=== PATIENT | female | born 1945 | race Caucasian/White ===

== ENCOUNTER 2024-04-07 17:25 | Inpatient (IN) ==
--- OUTSIDE RECORDS SUMMARY | 2024-04-07 17:30 | External Medical Summary | Summary of Care ---
Author Name Unknown Organization [facility] Address [address] [facility] [place] [address] Phone [phone] Care Team Providers Care Spool Hauler Name Role Phone Jordan Batista MD Primary Care Provider + Reason for Referral * Evaluate & Treat - Unlimited Visits (Within 10 days (routine)) - Authorized Specialty Diagnoses / Procedures Referred By Contdeacon t Referred To Contact Hematology/Oncology / Hematology Oncology Diagnoses Thrombocytopenia (HCC) Neutropenia, unspecified type (HCC) Jordan Batista MD [address] [place] [address] Referral ID Status Reason Start Date Expiration Date Visits Requested Visits Authorized [id number] Authorized Specialty Services Required 4 [phone] Question Answer Referral Priority Within 10 days (routine) Where should this appointment be scheduled? [facility] Reason for Referral Abnormal CBC Comments Hx chronic low WBC & platelet--both lower than her typical. Please eval/tx Reason for Visit * Reason Onset Date Comments Test Results 12/07/2023 Encounter Details Date Type Department Care Team (Late st Contact Info) Description 12/07/2023 Telephone Family Practice [facility] [address] [place] [address] Jordan Batista MD [address] [place] [address] Test Results Allergies Active Allergy Reactions Criticality Noted Date Comments Egg White High 10/27/1997 anaphylaxis from oral intake Egg-Derived Products 06/16/2011 Allergic to egg white, throat swelling Influenza Virus Vaccine Other (Please comment) 06/16/2011 Allergic to egg white, throat swelling Losartan Cough 11/03/2020 Cough/wheeze Dextromethorphan-Guaife nesin Other (Please comment) 03/18/2022 Pt has rash and knocked her out and stomach pains Pravachol 10/26/2007 Achiness Pneumococcal 13-Margarita Conj Vacc Chills/rigors,Fever, Nausea/vomiting,Othe r (Please comment) 06/03/2016 Very lighted headed and felt like she was going to pass out documented as of this encounter (statuses as of 12/11/2023) Medications Medication Sig Dispensed Refills Start Date End Date Status MULTIVITAMINS PO TABS 1 TABLET DAILY 05/24/2012 Active vitamin c (ASCORBIC ACID) 500 MG Tablet Take 2 Tablets by mouth in the morning. Active Simvastatin 20 MG Oral Tablet (Zocor)Indications:D yslipidemia, goal LDL below 100,Transient cerebral ischemia, unspecified type TAKE 1 TABLET EVERY EVENING 90 Tablet 3 06/23/2023 Active Triamcinolone Acetonide 0.1 % External Cream (Aristocort) APPLY TO RIGHT LEG TWICE DAILY NEEDED FOR FLARES 80 g 11 10/29/2023 Active Aspirin 81 MG Oral Tablet Delayed Release (Aspirin 81) Take 1 Tablet by mouth in the morning. Active Levothyroxine Sodium 88 MCG Oral Tablet (Levoxyl) Take 1 Tablet by mouth in the morning. (at least 30 min prior to breakfast or other meds). 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 06/05 US liver ?cirrohsis. Referred. 11/05 EGD +reflux, erosions, nodule found in the esophagus. Biopsied. --starting PPI - Portal hypertensive gastropathy. No evidence of gastric varices. - Duodenal erosions 07/05 TTE normal EF gr I DD. 07/03 colon WNL. Consider ck 5y? 06/03 DEXA ok. 2017 left breast bx papillomas (had bloody discharge)--had removed. 08/29 mult polyps PATH 2 tubular adenomas--brittany 3y Dyslipidemia, goal LDL below 100 01/15/2015 Hx-TIA (transient ischemic attack) 07/13/2012 Stasis dermatitis 03/07/2012 Rosacea 03/07/2012 GENERAL OSTEOARTHROSIS 10/26/2001 Hypothyroidism 11/27/1997 Former smoker 11/27/1997 Overview: Quit 2006 documented as of this encounter (statuses as of 12/11/2023) Resolved Problems Problem Noted Date Diagnosed Date Resolved Date Viral URI 10/22/2020 05/23/2022 Bloody discharge from left nipple 09/15/2017 04/26/2018 Dyslipidemia, goal to be determined 01/22/2009 10/23/2009 Overview: Per Lipid Taxonomy. Allergic rhinitis 06/22/2000 01/16/2018 MENOPAUSE - MATT - 1977 11/27/199705/25 Mixed dyslipidemia 11/27/1997 9 Overview: Per Lipid Taxonomy. documented as of this encounter (statuses as of 12/11/2023) Immunizations Name Administration Dates Next Due Hepatitis B, 20+ yrs 02/22/2023,08/25/2022,07/15 Pneumococcal Conjugate Vacc, 13 Valent (Prevnar) 03/18/2016 TD, Preservative Free 10/23/2009 documented as of this encounter Social History Tobacco Use Types Packs/Day Years Used Date Smoking Tobacco: Former Cigarettes 0.5 15 0 08/14/1991 - 08/13/2006 Smokeless Tobacco: Never Alcohol Use Standard Drinks/Week Comments No 0 (1 standard drink = 0.6 oz pur e alcohol) PHQ-2 Answer Date Recorded PHQ Adult Total Score 0 11/06/2023 Hunger Vital Sign Answer Date Recorded Within the past 12 months, y ou worried that your food would run out before you got the money to buy more. Never true 11/02/19 23 Within the past 12 months, t he food you bought just didn't last and you didn't have money to get more. Never true 11/01/2022 Childcare Answer Date Recorded Do you feel overwhelmed with taking care of a child, family member or friend? No 11/01/2022 Does your family need help f inding childcare? (Household - for ages 0-17 years) Not on file 11/01/2022 Clothing Answer Date Recorded Have you been unable to get clothing when it was really needed? No 11/01/2022 Is your family able to get c lothes or diapers when needed? (Household - for ages 0-17 years) Not on file 11/01/2022 Personal Safety Answer Date Recorded Do you feel unsafe or have concerns for your saf ety? No 11/01/2022 Do you have concerns for you r family's safety? (Household - for ages 0-17 years) Not on file 11/01/2022 Utilities Answer Date Recorded Do you have trouble paying y our heating, water, or electric bill? (Adult - for ages 18 years and over) Not on file 11/02/2023 Is your family able to pay t he heat, water, or electric bill? (Household - for ages 0-17 years) Not on file 11/02/2023 Does your family have access to good internet? (Household - for ages 0-17 years) Not on file 11/02/2023 Employment Status Answer Date Recorded Are you unemployed or without regular income? No 11/01/2022 Does the household have a re gular source of income? (Household - for ages 0-17 years) Not on file 11/01/2022 Social Connections Answer Date Recorded How often do you feel lonely or isolated from those around you? (Adult - for ages 18 years and over) Not on file 11/02/2023 Financial Resource Strain Answer Date R ecorded Do you have any trouble payi ng for your medications, or do you think you might in the future? No 11/01/2022 Does your family have troubl e paying for medicine? (Household - for ages 0-17 years) Not on file 11/01/2022 Transportation Needs Answer Date Record ed READ ONLY Do you have troubl e getting a ride to medical visits or work? Never True 11/01/2022 Does your family have a hard time getting a ride to doctors visits? (Household - for ages 0-17 years) Not on file 11/01/2022 Has lack of transportation k ept you from medical appointments, meetings, work, or from getting things needed for daily living? Check all that apply. (Adult - for ages 18 years and over) Not on file 11/01/2022 Do you (or your family) have trouble finding or paying for a ride (transportation)? (Household - for ages 0-17 years) Not on file 11/01/2022 Housing Stability Answer Date Recorded Do you currently live in a s helter or have no steady place to sleep at night? No 11/01/2022 READ ONLY Do you think you a re at risk of becoming homeless? No 11/01/2022 Does your family worry about paying for your home or becoming homeless? (Household - for ages 0-17 years) Not on file 0 11/01/2022 Are you homeless or worried that you might be in the future? (Adult - for ages 18 years and over) Not on file Are you (or your family) lelia eless or worried that you might be in the future? (Household - for ages 0-17 years) Not on file Food Insecurity Answer Date Recorded Do you need food for this week? No 11/01/2022 Are you able to get enough f ood for your family? (Household - for ages 0-17 years) Not on file 11/01/2022 Does your family need food t his week? (Household - for ages 0-17 years) Not on file 11/01/2022 Do you always have enough fo od for your family? (Household - for ages 0-17 years) Not on file 11/01/2022 Sex and Gender Information Value Date Recorded Sex Assigned at Female 03/17/2022 3:09 PM EST Gender Identity Female 03/17/2022 3:09 PM EST Sexual Orientation Straight 03/17/2022 3: 09 PM EST Job Start Date Occupation Industry Not on file Not on file Not on file documented as of this encounter Miscellaneous Notes * Telephone Encounter - Rajwinder Crow OSA - 12/11/2023 11:19 AM EDT Patient has been notified of the message. Patient has been scheduled. * Telephone Encounter - Myrna Leonardo OSA - 12/11/2023 10:59 AM EDT Reason for patient's call: Pt is calling returning miss called Caller was transferred to [facility] at the nurse line. * Telephone Encounter - Jerilyn Bo LPN - 12/11/2023 10:47 AM EDT No Benign Heme triage this week due to provider being out of office. Scheduling: Please schedule with next available Sumit QUIÑONES Hematology, "Thrombocytopenia, Neutropenia" within the next 10-Days. Thank you!! * Telephone Encounter - Bijal Paredes LPN - 12/08/2023 11:55 AM EDT My [employer] message sent. * Addendum Note - Jordan Batista MD - 12/08/2023 11:12 AM EDTAddended by: JORDAN BATISTA on: 12/08/2023 11:12 AM Modules accepted: Orders * Telephone Encounter - Jordan Batista MD - 12/08/2023 11:12 AM EDT Platelet lab ordered--please do before heme appt * Telephone Encounter - Bijal Paredes LPN - 12/08/2023 10:59 AM EDT My [employer] message sent to patient. Called the lab and spoke to Khadijah. Test code anti-platelet antibody is Lab 2857 * Telephone Encounter - Ganesh Ragsdale RN - 12/08/2023 9:01 AM EDT Eliazar- please triage. Thanks. * Telephone Encounter - Rosalind Youngblood OSA - 12/08/2023 6:47 AM EDT Hem/onc will call her to schedule * Telephone Encounter - Jordan Batista MD - 12/07/2023 10:38 PM EDT Call pt. Thyroid labs are improved--continue current dose. Her WBC & platelet are both lower than her usual low values. I'd like her to see our blood specialist to see if further tests or treatments are needed. Referral signed. Please also call lab--how do I order an Anti-platelet antibody? Cc: Dr Rodriguez documented in this encounter Plan of Treatment Upcoming Encounters Date Type Department Care Team (Late st Contact Info) Description 12/11/2023 1:00 PM EDT Laboratory Laboratory, [facility] [address] [place] [phone] LacyMaryjane peaces [address] [facility] [place] [address] 12/19/2023 4:00 PM EST Office Visit Hematology/Oncology [facility] [address] [place] [phone] Beth King MD [address] [place], [place] [address] 05/13/2024 8:20 AM EDT Office Visit Hepatology, [facility] [address] [place] [address] Nithya Rodriguez DO [address] [place] [address] 05/23/2024 9:00 AM EDT Imaging Radiology [address] [facility] [place] [address] 05/29/2024 8:20 AM EDT Office Visit Family Practice [facility] [address] [facility] [place] [address] Jordan Batista MD 132 [facility] [place] [address] 11/11/2024 8:00 AM EDT Nurse Only Ancillary [facility] [address] [facility] [place] [address] [facility], Nurse Annual Wellness [facility] 132 [facility] [place] [address] Scheduled Orders Name Type Priority Associated Diagnoses Orde r Schedule PLATELET ANTIBODY, DIRECT Lab Routine Thrombocytopenia (HCC) Expected: 12/08/2023, Expires: 12/07/2024 Scheduled Procedures Name Priority Associated Diagnoses Date/Ti me ESOPHAGOGASTRODUODENOSCOPY ( EGD), FLEXIBLE, TRANSORAL, DIAGNOSTIC Recall Portal hypertensive gastropathy (HCC) Scheduled Referrals Name Type Priority Associated Diagnoses Orde r Schedule HEMATOLOGY/ONCOLOGY REFERRAL OP Referral Within 10 days (routine) Thrombocytopenia (HCC) Neutropenia, unspecified type (HCC) Ordered: 12/07/2023 Health Maintenance Due Date Last Done Comments DTap/Tdap Vaccines (1 - Tdap) 10/24/2009 10/23/2009 Mammogram 06/19/2024 06/20/2023, 05/0 02/2023, 06/07/2022, Additional history exists Adult Wellness Visit 11/05/2024 11/06/2023, 11/02/19 23 Depression Screening 11/05/2024 11/06/2023 GFR 12/04/2024 12/05/2023, 10/14, 01/09/2023, Additional history exists TSH 12/04/2024 12/05/2023, 10/14, 05/25/2023, Additional history exists Albumin/Creatinine Ratio 05/23/2025 05/23/2022 DXA Scan 06/08/2025 06/08/2020, 08/14, 09/07/2011, Additional history exists Colonoscopy 07/07/2025 07/07/2020, 06/14, 09/07/2016, Additional history exists RETIRED - COLONOSCOPY-EVERY 5 YRS AGES 18-100 Discontinued 07/07/2020, 07/07/2020, 09/07/2016, Additional history exists Hepatitis B Vaccine Completed 02/22/2023, 08/25/2022, 07/15/2022 COVID-19 Vaccine Discontinued HPV (Gardasil) Vaccine Aged Out No lo nger eligible based on patient's age to complete this topic MENINGOCOCCAL (MENACTRA/MENVEO) Aged Out No longer eligible based on patient's age to complete this topic Zoster Vaccines Discontinued documented as of this encounter Medical Devices Not on filedocumented as of this encounter Visit Diagnoses Diagnosis Thrombocytopenia (HCC)- Primary Thrombocytopenia, unspecified Neutropenia, unspecified type (HCC) documented in this encounter Care Teams Spool Hauler Relationship Specialty Start Date End Date Jordan Batista MD [address] [place] [address] PCP - General Family Medicine 03/18/16 documented as of this encounter
--- OUTSIDE RECORDS SUMMARY | 2024-04-07 17:30 | External Medical Summary | Summary of Care ---
Author Name Unknown Organization [facility] Address [address] [facility] [place] [address] Phone [phone] Care Team Providers Care Fisher Hoop Net Name Role Phone Jordan Sierra MD Primary Care Provider + Reason for Visit * Reason Comments Outpatient Testing Encounter Details Date Type Department Care Team (Late st Contact Info) Description 12/11/2023 1:00 PM EDT Laboratory Laboratory, [facility] [address] [facility] [place] [phone] [facility] [address] [facility] [address] Thrombocytopenia (HCC) Allergies Active Allergy Reactions Criticality Noted Date [...] Hypothyroidism 11/27/1997 Former smoker 11/27/1997 Overview: Quit 2007 documented as of this encounter (statuses as [...] No 11/01/2022 Does the household have a rustlar source of income? (Household - for ages [...] on file documented as of this encounter Plan of Treatment Upcoming Encounters Date Type Department Care Team (Late st Contact Info) Description 12/19/2023 4:00 PM EST Office Visit Hematology/Oncology [facility] [address] [place] [address] [phone] Beth King MD [address] [place] [address] [address] 05/13/2024 8:20 AM EDT Office Visit Hepatology, [facility] [address] [place] [address] Nithya Rodriguez DO [address] [place] [address] 05/23/2024 9:00 AM EDT Imaging Radiology [address] [place] [address] 05/29/2024 8:20 AM EDT Office Visit Family Practice [facility] [address] [place] [address] Jordan Sierra MD [address] [place] [address] 11/11/2024 8:00 AM EDT Nurse Only Ancillary [facility] [address] [facility] [place] [address] [facility], Nurse Annual Wellness [facility] [address] [place] [address] Pending Results Name Type Priority Associated Diagnoses Date /Time PLATELET ANTIBODY, DIRECT Lab Routine Thrombocytopenia (HCC) 12/11/2023 1:07 PM EDT Scheduled Procedures Name Priority Associated Diagnoses Date/Ti me ESOPHAGOGASTRODUODENOSCOPY ( EGD), FLEXIBLE, TRANSORAL, DIAGNOSTIC Recall Portal hypertensive gastropathy (HCC) Health Maintenance Due Date Last Done Comments [...] of this encounter Visit Diagnoses Diagnosis Thrombocytopenia (HCC) Thrombocytopenia, unspecified documented in this encounter Care Teams Fisher Hoop Net Relationship Specialty Start Date End Date Jordan Sierra MD 132 [facility] [place] [address] PCP - General Family Medicine 03/18/16 documented as of this encounter
--- OUTSIDE RECORDS SUMMARY | 2024-04-07 17:30 | External Medical Summary | Summary of Care ---
Author Name Unknown Organization [facility] Address [address] [facility] [place] [address] Phone [phone] Care Team Providers Care Stage Setting Painter Apprentice Name Role Phone Unavailable Primary Care Provider Unavailabl e Reason for Visit * Reason Onset Date Comments Medication Refill 04/02/2024 Status Check 04/02/2024 Encounter Details Date Type Department Care Team (Late st Contact Info) Description 04/02/2024 Refill Family [facility] [address] [place] [address] Jordan Sierra MD [address] [place] [address] Allergies Active Allergy Reactions Criticality Noted Date [...] as of this encounter (statuses as of 04/03/2024) Medications MULTIVITAMINS PO TABS 1 TABLET DAILY 3 Active vitamin c (ASCORBIC ACID) 500 MG Tablet Take 2 Tablets by mouth in the morning. Active Simvastatin 20 MG Oral Tablet (Zocor)Indicatio ns:Dyslipidemia, goal LDL below 100,Transient cerebral ischemia, unspecified type TAKE 1 TABLET EVERY EVENING 90 Tablet 3 4 Active Additional Information Patient not taking.Reported on 12/19/2023 Triamcinolone Acetonide 0.1 % External Cream (Aristocort) APPLY TO RIGHT LEG TWICE DAILY NEEDED FOR FLARES 80 g 11 4 Active Aspirin 81 MG Oral Tablet Delayed Release (Aspirin 81) Take 1 Tablet by mouth in the morning. Active B-12 500 MCG Oral Tablet Take by mouth. Act cedrick Levothyroxine Sodium 88 MCG Oral Tablet (Levoxyl) Take 1 Tablet by mouth in the morning. (at least 30 min prior to breakfast or other meds). 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 06/05 US liver ?cirrohsis. Referred. 11/05 EGD +reflux, erosions, nodule found in the esophagus. Biopsied. --starting PPI - Portal hypertensive gastropathy. No evidence of gastric varices. - Duodenal erosions 07/05 TTE normal EF gr I DD. 07/03 colon WNL. Consider ck 5y? 06/03 DEXA ok. 2018 left breast bx papillomas (had bloody discharge)--had removed. 08/29 mult polyps PATH 2 tubular adenomas--brittany 3y Dyslipidemia, goal LDL below 100 01/15/2015 Hx-TIA (transient ischemic attack) 07/13/2012 Stasis dermatitis 03/07/2012 Rosacea 03/07/2012 GENERAL OSTEOARTHROSIS 10/26/2001 Hypothyroidism 11/27/1997 Former smoker 11/27/1997 Overview (03/18/2016): Quit 2006 documented as of this encounter (statuses as of 04/03/2024) Resolved Problems Problem Noted Date Diagnosed Date Resolved Date Viral URI 10/22/2020 05/23/2022 Bloody discharge from left nipple 09/15/2017 04/26/2018 Dyslipidemia, goal to be determined 01/22/2009 10/23/2009 Overview (01/22/2009): Per Lipid Taxonomy. Allergic rhinitis 06/22/2000 01/16/2018 MENOPAUSE - MATT - 1977 11/27/199705/25 Mixed dyslipidemia 11/27/1997 9 Overview (01/22/2009): Per Lipid Taxonomy. documented as of this encounter (statuses as of 04/03/2024) Immunizations Name Administration Dates Next Due Hepatitis [...] y our heating, water, or electric bill? No 11/01/2022 Is your family able to pay t he heat, water, or electric bill? (Household - for ages 0-17 years) Not on file 11/01/2022 Does your family have access to good internet? (Household - for ages 0-17 years) Not on file 11/01/2022 Employment Status Answer Date Recorded Are you unemployed or without regular income? No 11/01/2022 Does the household have a re lar source of income? (Household - for ages 0-17 years) Not on file 11/01/2022 Social Connections Answer Date Recorded How often do you feel lonely or isolated from th ose around you? 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 Informed pt that RX is available at their pharmacy. Pt verbalized understanding and stated they will check with their pharmacy regarding this medication. Thank you, Adenike Steele CPhT [employer] Engineer III [facility] [address] [place] [address], [address] [address] * Telephone Encounter - Elia Reyes RPh - 04/03/2024 12:46 PM EST Duplicate request cancelled, new RX sent 04/02/24. Thanks, Elia Reyes Rph, Pharm D. Clinical Pharmacist [facility] [phone] 04/03/2024,12:47 PM documented in this encounter Plan of Treatment Upcoming Encounters Date Type Department Care Team (Late st Contact Info) Description 05/13/2024 8:20 AM EDT Office Visit Hepatology, [facility] [address] [place] [address] Nithya Rodriguez DO [address] [place] [address] 05/23/2024 9:00 AM EDT Imaging Radiology [facility] [address] [facility] [place] [address] [place] [address] [phone] 05/29/2024 8:20 AM EDT Office Visit Family Practice [facility] [address] [place] [address] Jordan Sierra MD [address] [place] [address] [address] 06/18/2024 9:00 AM EDT Laboratory Laboratory, [facility] [address] [place] [phone] Maryjane Lacy [facility] 132 [facility] [place] [address] 06/25/2024 1:00 PM EDT Office Visit Hematology/Oncology [facility] 200 [facility] [place] [phone] Beth King MD [address] [place] [address] 11/11/2024 8:00 AM EDT Nurse Only Ancillary [facility] 132 [facility] [place] [address] [place], Nurse Annual Wellness [facility] 132 [facility] [place] [address] Scheduled Procedures Name Priority Associated Diagnoses Date/Ti me ESOPHAGOGASTRODUODENOSCOPY ( EGD), FLEXIBLE, TRANSORAL, DIAGNOSTIC Recall Portal hypertensive gastropathy (HCC) Health Maintenance Due Date Last Done Comments DTap/Tdap Vaccines (1 - Tdap) 10/24/2009 10/23/2009 Mammogram 06/19/2024 06/20/2023, 02/2023, 06/07/2022, Additional history exists Depression Screening 11/05/2024 11/06/2023 GFR 12/04/2024 12/05/2023, [...] on patient's age to complete this topic Meningitis B Vaccine (Bexsero/Trumemba) Aged Out No longer eligible based on patient's age to complete this topic Zoster Vaccines Discontinued documented as of this encounter Medical Devices Not on filedocumented as of this encounter
--- OUTSIDE RECORDS SUMMARY | 2024-04-07 17:30 | External Medical Summary | Summary of Care ---
Author Name Unknown Organization [facility] [address] [facility] [address] [address] Phone [phone] Care Team Providers Care Geological Sample Tester Name Role Phone Jordan Sierra MD Primary Care Provider + Reason for Visit * Reason Onset Date Comments Test Results 11/06/2023 Encounter Details Date Type Department Care Team (Late st Contact Info) Description 11/06/2023 Telephone Family Practice [facility] [address] [employer] [address] [address] [place] [phone] Jordan Sierra MD [address] [address] [place] [id number] Test Results Allergies Active Allergy Reactions Criticality [...] as of this encounter (statuses as of 02/05/2024) Medications MULTIVITAMINS PO TABS 1 TABLET DAILY 05/25/19 13 Active vitamin c (ASCORBIC ACID) 500 MG Tablet Take 2 Tablets by mouth in the morning. Active Simvastatin 20 MG Oral Tablet (Zocor)Indicat ions:Dyslipide carlitos, goal LDL below 100,Transient cerebral ischemia, unspecified type TAKE 1 TABLET EVERY EVENING 90 Tablet 3 06/23/19 24 Active Additional Information Patient not taking.Reported on 12/19/2023 Triamcinolone Acetonide 0.1 % External Cream (Aristocort) APPLY TO RIGHT LEG TWICE DAILY NEEDED FOR FLARES 80 g 11 10/29/19 24 Active Aspirin 81 MG Oral Tablet Delayed Release (Aspirin 81) Take 1 Tablet by mouth in the morning. Active Levothyroxine Sodium 100 MCG Oral Tablet (Levoxyl)Indic ations:Hypothy roidism, unspecified type Take 1 Tablet by mouth in the morning. (at least 30 min prior to breakfast or other meds). 90 Tablet 1 06/18/19 24 024 Discontinued(M edication/Dose Changed) Levothyroxine Sodium 88 MCG Oral Tablet (Levoxyl) Take 1 Tablet by mouth in the morning. (at least 30 min prior to breakfast or other meds). 30 Tablet 1 11/06/19 24 024 Discontinued documented as of this encounter (statuses as of 02/05/2024) Active Problems Problem Noted Date Diagnosed Date [...] as of this encounter (statuses as of 02/05/2024) Resolved Problems Problem Noted Date Diagnosed Date Resolved Date Viral URI 10/22/2020 05/23/2022 Bloody discharge from left nipple 09/15/2017 04/26/2018 Dyslipidemia, goal to be determined 01/22/2009 10/23/2009 Overview (01/22/2009): Per Lipid Taxonomy. Allergic rhinitis 06/22/2000 01/16/2018 MENOPAUSE - MATT - 1977 11/27/199705/25 Mixed dyslipidemia 11/27/1997 9 Overview (01/22/2009): Per Lipid Taxonomy. documented as of this encounter (statuses as of 02/05/2024) Immunizations Name Administration Dates Next Due Hepatitis [...] encounter Miscellaneous Notes * Telephone Encounter - Mariaelena Nix LPN - 11/07/2023 8:55 AM EDT Pt VM box full and unable to leave message Pt aware via VM [employer] * Telephone Encounter - Jordan Sierra MD - 11/06/2023 10:19 PM EDT Call pt. Thyroid remains higher than normal (low TSH) We can decrease her Synthroid to 88mcg. Stop the 100mcg dose. I sent 88mcg to [facility]--[facility] in 6 weeks. If stable, can switch to Mail order documented in this encounter Plan of Treatment Upcoming Encounters Date Type Department Care Team (Late st Contact Info) Description 05/13/2024 8:20 AM EDT Office Visit Hepatology, [facility] [address] [address] Nithya Rodriguez DO [address] [place] [address] 05/23/2024 9:00 AM EDT Imaging Radiology [facility] [address] [address] 05/29/2024 8:20 AM EDT Office Visit Family Practice [facility] [address] [address] Jordan Sierra MD [address] [place] [address] 06/18/2024 9:00 AM EDT Laboratory Laboratory, [facility] [address] [phone] [facility] Lacy [facility] [place] [address] 06/25/2024 1:00 PM EDT Office Visit Hematology/Oncology [facility] [place] [address] [facility] [place] [phone] Beth King MD [address] [facility] [place] [address] 11/11/2024 8:00 AM EDT Nurse Only Ancillary [facility] 132 [facility] [place] [address] Regino, Nurse Annual Wellness [facility] [address] [facility] [place] [address] Scheduled Procedures Name Priority Associated Diagnoses Date/Ti me ESOPHAGOGASTRODUODENOSCOPY ( EGD), FLEXIBLE, TRANSORAL, DIAGNOSTIC Recall Portal hypertensive gastropathy (HCC) Health Maintenance Due Date Last Done Comments DTap/Tdap Vaccines (1 - Tdap) 10/24/2009 10/23/2009 Mammogram 06/19/2024 06/20/2023, 0502/2023, 06/07/2022, Additional history exists Adult Wellness Visit [...] Not on filedocumented as of this encounter Results * TSH WITH FREE T4 IF INDICATED (12/05/2023 8:58 AM EDT) TSH 0.43 0.27 - 4.20 uIU/mL 12/05/2023 2:36 PM EDT LAB[facility]ATORY [facility] Blood Venous blood specimen / Unknown Venipuncture / Unknown 12/05/2023 8:58 AM EDT 12/05/2023 8:58 AM EDT us Jordan Sierra MD LAB BLOOD ORDERABLES Fin al Result LABORATORY [facility] [address] [facility] [place] [address] documented in this encounter Visit Diagnoses Diagnosis Hypothyroidism, unspecified type- Primary documented in this encounter Care Teams Geological Sample Tester Relationship Specialty Start Date End Date Jordan Sierra MD 132 [facility] [place] [address] PCP - General Family Medicine 03/18/16 documented as of this encounter
--- OUTSIDE RECORDS SUMMARY | 2024-04-07 17:30 | External Medical Summary | Summary of Care ---
Author Name Unknown Organization [facility] Address [address] [facility] [address] Phone [phone] Care Team Providers Care Key Punch Operator Name Role Phone Unavailable Primary Care Provider Unavailabl e Encounter Details Date Type Department Care Team (Late st Contact Info) Description 03/05/2024 Population Health External Data Unspecified Department Allergies Active Allergy Reactions Criticality Noted Date [...] as of this encounter (statuses as of 03/05/2024) Medications MULTIVITAMINS PO TABS 1 TABLET DAILY [...] breakfast or other meds). 90 Tablet 1 4 Active documented as of this encounter (statuses as of 03/05/2024) Active Problems Problem Noted Date Diagnosed Date [...] 11/27/1997 Former smoker 11/27/1997 Overview (03/18/2016): Quit 2007 documented as of this encounter (statuses as of 03/05/2024) Resolved Problems Problem Noted Date Diagnosed Date Resolved Date Viral URI 10/22/2020 05/23/2022 Bloody discharge from left nipple 09/15/2017 04/26/2018 Dyslipidemia, goal to be determined 01/22/2009 10/23/2009 Overview (01/22/2009): Per Lipid Taxonomy. Allergic rhinitis 06/22/2000 01/16/2018 MENOPAUSE - MATT - 1977 11/27/199705/25 Mixed dyslipidemia 11/27/1997 9 Overview (01/22/2009): Per Lipid Taxonomy. documented as of this encounter (statuses as of 03/05/2024) Immunizations Name Administration Dates Next Due Hepatitis [...] 05/13/2024 8:20 AM EDT Office Visit Hepatology, [facility] [address] [address] Nithya Rodriguez DO [address] [place] [address] 05/23/2024 9:00 AM EDT Imaging Radiology [address] [place] [phone] 05/29/2024 8:20 AM EDT Office Visit Family Practice [facility] [address] [place] [address] Jordan Sierra MD [address] [place] [address] [address] 06/18/2024 9:00 AM EDT [facility] [address] [phone] Maryjane Lacy [facility] [address] [place] [address] 06/25/2024 1:00 PM EDT Office Visit Hematology/On[facility] [address] [facility] [place] [phone] Beth King MD 200 [facility] [place] [address] 11/11/2024 8:00 AM EDT Nurse Only Ancillary [facility] [address] [place] [address] Regino Nurse Annual Wellness [facility] [address] [place] [address] Scheduled Procedures Name Priority Associated Diagnoses Date/Ti me ESOPHAGOGASTRODUODENOSCOPY ( EGD), FLEXIBLE, TRANSORAL, DIAGNOSTIC Recall Portal hypertensive gastropathy (HCC) Health Maintenance Due Date Last Done Comments DTap/Tdap Vaccines (1 - Tdap) 10/24/2009 10/23/2009 Mammogram 06/19/2024 06/20/2023, 0502/2023, 06/07/2022, Additional history exists Depression Screening 11/05/2024 [...]
--- OUTSIDE RECORDS SUMMARY | 2024-04-07 17:30 | External Medical Summary | Summary of Care ---
Author Name Unknown Organization [facility] Address [address] [facility] [place] [address] Phone [phone] Care Team Providers Care Tube Making Machine Operator Name Role Phone Jordan Batista MD Primary Care Provider + Reason for Referral * Evaluate & Treat - Unlimited Visits (Within 10 days (routine)) - Authorized Specialty Diagnoses / Procedures Referred By Contdeacon t Referred To Contact Hematology/Oncology / Hematology Oncology Diagnoses Thrombocytopenia (HCC) Neutropenia, unspecified type (HCC) Jordan Batista MD [address] [employer] [place] [address] Referral ID Status Reason Start Date Expiration Date Visits Requested Visits Authorized [id number] Authorized Specialty Services Required 4 [phone] [...] Contact Info) Description 12/07/2023 Telephone Family Practice [facility] [address] [employer] [place] [address] Jordan Batista MD [address] [employer] [place] [address] Test Results Allergies Active Allergy Reactions Criticality [...] encounter Miscellaneous Notes * Telephone Encounter - Myrna Leonardo OSA - 12/11/2023 10:59 AM EDT Reason for patient's call: Pt is calling returning miss called Caller was transferred to [facility] at the nurse line. * Telephone Encounter - Jerilyn Bo LPN - 12/11/2023 10:47 AM EDT No Benign Heme triage this week due to provider being out of office. Scheduling: Please schedule with next available MD New Hematology, "Thrombocytopenia, Neutropenia" within the next 10-Days. Thank you!! * Telephone Encounter - Bijal Paredes LPN - 12/08/2023 11:55 AM EDT My Textingly message sent. * Addendum Note - Jordan Batista MD - 12/08/2023 11:12 AM EDTAddended by: JORDAN BATISTA on: 12/08/2023 11:12 AM Modules accepted: Orders * Telephone Encounter - Jordan Batista MD - 12/08/2023 11:12 AM EDT Platelet lab ordered--please do before heme appt * Telephone Encounter - Bijal Paredes LPN - 12/08/2023 10:59 AM EDT My Textingly message sent to patient. Called the lab [...] 12/19/2023 4:00 PM EST Office Visit Hematology/Oncology [facility] [place] [address] [place] [phone] Beth King MD [address] [place] [address] 05/13/2024 8:20 AM EDT Office Visit Hepatology, [facility] [address] [facility] [place] [address] Nithya Rodriguez DO [address] [place] [address] 05/23/2024 9:00 AM EDT Imaging Radiology [facility]st [facility] [address] [place] [address] 05/29/2024 8:20 AM EDT Office Visit Family Practice [facility] [address] [place] [address] Jordan Batista MD [address] [place] [address] 11/11/2024 8:00 AM EDT Nurse Only Ancillary [facility] [place] [address] [facility], Nurse Annual Wellness [facility] [place] [address] Scheduled Orders Name Type Priority Associated Diagnoses [...] - Tdap) 10/24/2009 10/23/2009 Mammogram 06/19/2024 06/20/2023, 050 02/2023, 06/07/2022, Additional history exists Adult Wellness [...] (HCC) documented in this encounter Care Teams Tube Making Machine Operator Relationship Specialty Start Date End Date Jordan Batista MD [address] [place] [address] PCP - General Family Medicine 03/18/16 documented as of this encounter
--- OUTSIDE RECORDS SUMMARY | 2024-04-07 17:30 | External Medical Summary | Summary of Care ---
Author Name Unknown Organization [facility] Address [address] [facility] [place] [address] Phone [phone] Care Team Providers Care Printer Floor Covering Assistant Name Role Phone Jordan Sierra MD Primary Care Provider + Reason for Visit * Reason Comments NEW PATIENT * Evaluate & Treat - Unlimited Visits (Within 10 days (routine)) - Authorized Specialty Diagnoses / Procedures Referred By Contdeacon t Referred To Contact Hematology/Oncology / Hematology Oncology Diagnoses Thrombocytopenia (HCC) Neutropenia, unspecified type (HCC) Jordan Sierra MD [address] [facility] [place] [address] Referral ID Status Reason Start Date Expiration Date Visits Requested Visits Authorized [id number] Authorized Specialty Services Required [phone] Encounter Details Date Type Department Care Team (Latest Contact Info) Description 12/19/2023 4:00 PM EST Office Visit Hematology/Oncology [facility] [place] [address] [facility] [place] [phone] Beth King MD [address] [facility] [place] [address] Thrombocytopenia (HCC)*; Neutropenia, unspecified type (HCC) Allergies Active Allergy Reactions Criticality Noted [...] as of this encounter (statuses as of 12/19/2023) Medications Medication Sig Dispensed Refills Start Date End Date Status MULTIVITAMINS PO TABS 1 TABLET DAILY 05/24/2012 Active vitamin c (ASCORBIC ACID) 500 MG Tablet Take 2 Tablets by mouth in the morning. Active Simvastatin 20 MG Oral Tablet (Zocor)Indications: Dyslipidemia, goal LDL below 100,Transient cerebral ischemia, unspecified type TAKE 1 TABLET EVERY EVENING 90 Tablet 3 06/23/2023 Active Additional Information Patient not taking.Reported on [...] other meds). 30 Tablet 1 11/06/2023 Active B-12 500 MCG Oral Tablet Take by mouth. Active documented as of this encounter (statuses as of 12/19/2023) Active Problems Problem Noted Date Diagnosed Date [...] as of this encounter (statuses as of 12/19/2023) Resolved Problems Problem Noted Date Diagnosed Date Resolved Date Viral URI 10/22/2020 05/23/2022 Bloody discharge from left nipple 09/15/2017 04/26/2018 Dyslipidemia, goal to be determined 01/22/2009 10/23/2009 Overview: Per Lipid Taxonomy. Allergic rhinitis 06/22/2000 01/16/2018 MENOPAUSE - MATT - 1977 11/27/199705/25 Mixed dyslipidemia 11/27/1997 9 Overview: Per Lipid Taxonomy. documented as of this encounter (statuses as of 12/19/2023) Immunizations Name Administration Dates Next Due Hepatitis [...] on file documented as of this encounter Last Filed Vital Signs Vital Sign Reading Time Taken Comments Blood Pressure 180/66 12/19/2023 3:42 PM EST Pulse 79 12/19/2023 3:42 PM EST Temperature 36.4 C (97.6 F) 12/19/2023 3:42 PM ES T Respiratory Rate - - Oxygen Saturation 94% 12/19/2023 3:42 PM EST Inhaled Oxygen Concentration - - Weight 81.7 kg (180 lb 3.2 oz) 12/19/2023 3:42 P M EST Height 162.6 cm (5' 4") 12/19/2023 3:42 PM EST Body Mass Index 30.93 12/19/2023 3:42 PM EST documented in this encounter Progress Notes * Beth King MD - 12/19/2023 3:42 PM EST Outpatient Consult Note Data Source: Patient, Epic record. 12/19/2023 3:42 PM Day[place] Lopez [id number] 78 year old MD Jordan Aguillon MD Patient Encounter: HEMATOLOGY/ONCOLOGY [facility] Reason for consult: Low WBC and platelet counts HPI: 78-year-old female with a past medical history significant for hypertension, dyslipidemia, Janay disease, OA, rosacea , TIA, hypothyroidism and liver cirrhosis secondary to MAHAJAN referred with theove diagnosis. She underwent an US of the abdomen in May 2022 for thrombocytopenia and elevatedLFTs found to have cirrhosis on imaging with probable varices. She has not had any form of decompensation including encephalopathy, GI bleeding, ascites, LE edema, juandice. Abdominal US 05/23/2023: IMPRESSION 1. 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 Suboptimal visualization of portions of the liver; no HCC is identified. Advise incorporating liver MRI or CT in the HCC screening regimen. 2. Cholecystectomy. EGD 10/24/2022: Impression: - Z-line regular, 35 cm from the incisors. No evidence of esophageal varices. - Small hiatal hernia. - Nodule found in the esophagus. Biopsied. - Portal hypertensive gastropathy. No evidence of gastric varices. - Duodenal erosions. Recent CBC was done on 12/05/2023 which shows WBC count of 3.03, hemoglobin 12.5 and platelet [id number]. Looking at the CBC result in the [facility], the earliest available with a low platelet count was from 10/10/2017 and at that time her platelet count was 121. Since then her platelet count have progressively decreased but overall stable since 01/09/2023. Creatinine was 0.7 the rest of the electrolytes were within normal range, total bilirubin was 2.9 and AST was 38. Alpha fetoprotein level was 6.4. Antiplatelet IgG antibody was negative. Overall clinically she is stable. She has a history of episodes of dizziness since age of 24. Denies any headache, chest pain, palpitation, abdominal pain or distention, nausea, vomiting, fever, night sweats, bleeding, bruising, weight loss, hematuria, hematochezia, nosebleed. She denies smoking or drinking. Family history significant for father was diagnosed of esophageal cancer. One brother was diagnosedof lung cancer. 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 Thrombocytopenia (HCC) 05/24/2022 Current Outpatient Medications Medication Sig Dispense Refill MULTIVITAMINS PO TABS 1 TABLET DAILY vitamin c (ASCORBIC ACID) 500 MG Tablet Take 2 Tablets by mouth in the morning. Simvastatin 20 MG Oral Tablet (Zocor) TAKE 1 TABLET EVERY EVENING 90 Tablet 3 Triamcinolone Acetonide 0.1 % External Cream (Aristocort) APPLY TO RIGHT LEG TWICE DAILY NEEDED FOR FLARES 80 g 11 Aspirin 81 MG Oral Tablet Delayed Release (Aspirin 81) Take 1 Tablet by mouth in the morning. Levothyroxine Sodium 88 MCG Oral Tablet (Levoxyl) Take 1 Tablet by mouth in the morning. (at least 30 min prior to breakfast or other meds). 30 Tablet 1 No current facility-administered medications for this visit. Social History Socioeconomic History Marital status: Spouse name: Not on file Number of children: 2 Years of education: Not on file Highest education level: Not on file Occupational History Occupation: [employer] Comment: [employer]. Occupation: retired Tobacco Use Smoking status: Former Current packs/day: 0.00 Average packs/day: 0.5 packs/day for 15.0 years (7.5 ttl pk-yrs) Types: Cigarettes Start date: 08/14/1991 Quit date: 08/13/2006 Years since quittin.3 Smokeless tobacco: Never Vaping Use Vaping status: Never Used Substance and Sexual Activity Alcohol use: No Drug use: No Sexual activity: Not Currently Comment: lives w/ex. 2 kids. 7 grand, 6 greats. Other Topics Concern Not on file Social History Narrative Likes walking, eating, Social Determinants of Health Financial Resource Strain: Low Risk (11/01/2022) Financial Resource Strain Do you have any trouble paying for your medications, or do you think you might in the future? (Adult - for ages 18 years and over): No Does your family have trouble paying for medicine? (Household - for ages 0-17 years): Not on file Food Insecurity: No Food Insecurity (11/01/2022) Food Insecurity Do you need food for this week? (Adult - for ages 18 years and over): No Are you able to get enough food for your family? (Household - for ages 0-17 years): Not on file Does your family need food this week? (Household - for ages 0-17 years): Not on file Do you always have enough food for your family? (Household - for ages 0-17 years): Not on file Transportation Needs: No Transportation Needs (11/01/2022) Transportation Needs Do you have trouble getting a ride to medical visits or work? (Adult - for ages 18 years and over):Never True Does your family have a hard time getting a ride to doctors visits? (Household - for ages 0-17 years): Not on file Has lack of transportation kept you from medical appointments, meetings, work, or from getting things needed for daily living? Check all that apply. (Adult - for ages 18 years and over): Not on file Do you (or your family) have trouble finding or paying for a ride (transportation)? (Household - for ages 0-17 years): Not on file Social Connections: Unknown (11/02/2023) Social Connections How often do you feel lonely or isolated from those around you? (Adult - for ages 18 years and over): Not on file Housing Stability: Low Risk (11/01/2022) Housing Stability Do you currently live in a intermediate or have no steady place to sleep at night? (Adult - for ages 18 years and over): No Do you think you are at risk of becoming homeless? (Adult - for ages 18 years and over): No Does your family worry about paying for your home or becoming homeless? (Household - for ages 0-17 years): Not on file Are you homeless or worried that you might be in the future? (Adult - for ages 18 years and over): Not on file Are you (or your family) homeless or worried that you might be in the future? (Household - for ages0-17 years): Not on file Family History Problem Relation Name Age of Onset Heart Disorder Mother age 83- OR Endocrine Disorder Mother thyroid Cancer Father esophageal cancer- age 66 Diabetes Father Hypertension Father Other (Other) Sister 8 mos old, PNA Musculo-skeletal Disorder Sister she is 15y older. osteoporosis. lives in [place] Hypertension Sister in [place]. Cancer Brother 1 prostate cancer/ + "colitis" Lung cancer Brother 1 86 Hypertension Brother 2 Jose D Cirrhosis Brother 2 Hypertension Brother 3 outside Jose D Stroke Brother 3 Other (Other) Son oldest Deg. disc. disease, neck sx Musculo-skeletal Disorder Son youngest back sx, herneated disc Gastro-intestinal disorder Son youngest diverticulitis Breast Cancer Niece in her 30s. REVIEW OF SYSTEMS: General: No Fever, chills, night sweats, or weight loss. HEENT: No change in visual acuity, blurred or double vision. No epistaxis, facial pain, nasal discharge or change in hearing. Denies dysphagia, no muscosal ulceration, or sores noted. Cardiovascular: No chest pain, MATUTE, or palpitations Respiratory: No shortness of breath, cough, hemoptysis, or pleuritic chest pain Gastrointestinal: No abdominal pain, nausea, vomiting, diarrhea, rectal pain or bleeding Genitourinary: Denies Hematuria or dysuria Musculoskeletal: No bone pain Psychiatric: No vegetative signs of depression Endocrine: No symptoms of hypothyroidism or hyperglycemia Hematologic: No bleeding or lymph nodes noted As mentioned above, all other systems were reviewed in full and are unremarkable. Review of patient's allergies indicates: Allergen Reactions Egg White anaphylaxis from oral intake Egg-Derived Products Allergic to egg white, throat swelling Influenza Virus Vaccine Other (Please comment) Allergic to egg white, throat swelling Losartan Cough Cough/wheeze Mucinex Cough For Kids [Dextromethorphan-Guaifenesin] Other (Please comment) Pt has rash and knocked her out and stomach pains Pravachol Achiness Prevnar [Pneumococcal 13-Margarita Conj Vacc] Chills/rigors, Fever, Nausea/vomiting and Other (Please comment) Very lighted headed and felt like she was going to pass out PHYSICAL EXAMINATION: General Appearance: Healthy appearing patient in no acute distress There were no vitals taken for this visit. Vitals were reviewed. HEENT: No oral or pharyngeal masses, ulceration or thrush noted, no sinus tenderness. Neck is supple with no thyromegaly or JVD noted. Lymph Nodes: No lymphadenopathy noted in the occipital, pre and post auricular, cervical, supra andinfraclavicular, axillary, epitrochlear, inguinal, and popliteal region. Lungs/Thorax: Clear to auscultation, no accessory muscles of respiration being used. Heart: Regular rate and rhythm, normal S1, S2. Abdomen: Soft, nontender, bowel sounds present, no appreciable hepatosplenomegaly, no palpable masses Extremeties: Good pulses bilaterally, no peripheral edema. 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 Patient also has a history of liver cirrhosis was diagnosed recently because of the increase bilirubin and liver enzymes. Clinically she is doing well without any new symptoms or complain. No episode of bleeding or easy bruising. Low platelet counts and low WBC count is common inpatient with liver cirrhosis and portal total hypertensive splenomegaly.The pathogenesis of abnormal hematological indices in cirrhosis is multifactorial and includes portal hypertension-induced sequestration, alterations in bone marrow stimulating f actors, viral- and toxin-induced bone marrow suppression and consumption or loss. As far as her counts are stable, the best option is to continue to monitor the patient clinically. If there is any episode bleeding then she will need blood and platelet transfusion. Discussed with the patient in detail about diagnosis and reviewed all the available blood test result with her. Also discuss about the pathophysiology of the low counts in the patient with liver cirrhosis. At this point the best option is continue to monitor the patient clinically. PLAN: Return to clinic in 6 months with CBC and CMP. The patient voiced understanding of all of the above. All questions and concerns were addressed in an apparently satisfactory manner. Beth King MD (This note was completed using the dictation program Fluency Direct. As such, there may be misspellings, word substitutions, or other variations that should not change the essence of the clinical content of this encounter note. If there is need for further clarification, please direct questions to me.) documented in this encounter Nursing Notes * Alejandra Zavala MED ASSIST - 12/19/2023 3:45 PM EST Patient identifed by name and birthdate Do you have any concerns about pain management for today's visit? Yes. Patient instructed to discuss pain concerns with provider during the visit today Living Will or Advance Directive for Health Care as noted on the problem list. [facility] is a way you can talk to your provider on line through e-mail. Would you like to sign up? I can activate it for you? ALREADY ACTIVE Filed Vitals: 12/19/23 1542 BP: 180/66 Pulse: 79 Temp: 36.4 C (97.6 F) TempSrc: Tympanic SpO2: 94% Weight: 81.7 kg (180 lb 3.2 oz) Height: 1.626 m (5' 4") Patient was instructed to not get up on the exam table/exam chair until directed and assisted by their provider; patient is to remain seated in the chair/ wheelchair/ exam table/ exam chair for fall prevention and safety reasons. Patient is aware to have assistance to step down off exam table/exam chair with personnel. Patient voiced full comprehension of instructions. documented in this encounter Plan of Treatment Upcoming Encounters Date Type Department Care Team (Late st Contact Info) Description 05/13/2024 8:20 AM EDT Office Visit [facility]atology, [facility] [place] [address] Nithya Rodriguez DO [address] [facility] [place] [address] 05/23/2024 9:00 AM EDT Imaging Radiology [facility] [address] [facility] [address] [place] [address] 05/29/2024 8:20 AM EDT Office Visit Family Practice [facility] [address] [facility] [place] [address] Jordan Sierra MD [address] [facility] [place] [address] 06/18/2024 9:00 AM EDT Laboratory Laboratory, [facility] [address] [facility] [place] [phone] Lacy, Lab [facility] [address] [facility] [place] [address] 06/25/2024 1:00 PM EDT Office Visit Hematology/Oncology [facility] [address] [place] [phone] Beth King MD [address] [place] [address] 11/11/2024 8:00 AM EDT Nurse Only Ancillary [facility] [address] [facility] [place] [address] Regino, Nurse Annual Wellness [facility] [address] [facility] [place] [address] Scheduled Orders Name Type Priority Associated Diagnoses Orde r Schedule CBC WITH WBC DIFFERENTIAL Lab Routine Thrombocytopenia (HCC) Neutropenia, unspecified type (HCC) Expected: 06/24/2024, Expires: 12/18/2024 COMPREHENSIVE METABOLIC PANEL Lab Routine Thrombocytopenia (HCC) Neutropenia, unspecified type (HCC) Expected: 06/24/2024, Expires: 12/18/2024 Scheduled Procedures Name Priority Associated Diagnoses Date/Ti me ESOPHAGOGASTRODUODENOSCOPY ( EGD), FLEXIBLE, TRANSORAL, DIAGNOSTIC Recall Portal hypertensive gastropathy (HCC) Health Maintenance Due Date Last Done Comments DTap/Tdap Vaccines (1 - Tdap) 10/24/2009 10/23/2009 Mammogram 06/19/2024 06/20/2023, 02/2023, 06/07/2022, Additional history exists Adult Wellness [...] (HCC) documented in this encounter Care Teams Printer Floor Covering Assistant Relationship Specialty Start Date End Date Jordan Sierra MD [address] [place] [id number] PCP - General Family Medicine 03/18/16 documented as of this encounter
--- OUTSIDE RECORDS SUMMARY | 2024-04-07 17:30 | External Medical Summary | Summary of Care ---
Author Name Unknown Organization [facility] Address [address] [facility] [place] [place] [address] Phone [phone] Care Team Providers Care Simplex Operator Name Role Phone Jordan Batista MD Primary Care Provider + Reason for Visit * Reason Comments eRx-Medication Refill Encounter Details Date Type Department Care Team (Late st Contact Info) Description 12/30/2023 Refill Family Practice [facility] [address] [place] [phone] Jordan Batista MD [address] [place] [address] Allergies Active Allergy Reactions Criticality Noted Date [...] as of this encounter (statuses as of 12/30/2023) Medications MULTIVITAMINS PO TABS 1 TABLET DAILY 05/25/19 13 Active vitamin c (ASCORBIC ACID) 500 MG Tablet Take 2 Tablets by mouth in the morning. Active Simvastatin 20 MG Oral Tablet (Zocor)Indicati ons:Dyslipidemi a, goal LDL below 100,Transient cerebral ischemia, unspecified [...] breakfast or other meds). 90 Tablet 1 12/30/19 24 Active Levothyroxine Sodium 88 MCG Oral Tablet (Levoxyl) Take 1 Tablet by mouth in the morning. (at least 30 min prior to breakfast or other meds). 30 Tablet 1 11/06/19 24 024 Discontinued documented as of this encounter (statuses as of 12/30/2023) Active Problems Problem Noted Date Diagnosed Date [...] as of this encounter (statuses as of 12/30/2023) Resolved Problems Problem Noted Date Diagnosed Date Resolved Date Viral URI 10/22/2020 05/23/2022 Bloody discharge from left nipple 09/15/2017 04/26/2018 Dyslipidemia, goal to be determined 01/22/2009 10/23/2009 Overview (01/22/2009): Per Lipid Taxonomy. Allergic rhinitis 06/22/2000 01/16/2018 MENOPAUSE - MATT - 1977 11/27/199705/25 Mixed dyslipidemia 11/27/1997 9 Overview (01/22/2009): Per Lipid Taxonomy. documented as of this encounter (statuses as of 12/30/2023) Immunizations Name Administration Dates Next Due Hepatitis [...] No 11/01/2022 Does the household have a [facility] hospit[facility] source of income? (Household - for ages [...] encounter Miscellaneous Notes * Telephone Encounter - Mauricio Pantoja [facility] - 12/30/2023 8:37 PM EST Signed Prescriptions: Disp Refills Levothyroxine Sodium 88 MCG Oral Tablet (L*90 Tab*1 Sig: Take 1 Tablet by mouth in the morning. (at least 30 min prior to breakfast or other meds).Authorizing Provider: JORDAN BATISTA User: MAURICIO PANTOJA documented in this encounter Plan of Treatment Upcoming Encounters Date Type Department Care Team (Late st Contact Info) Description 05/13/2024 8:20 AM EDT Office Visit Hepatology, [facility] [address] [place] [phone] Nithya Rodriguez DO [address] [place] [address] 05/23/2024 9:00 AM EDT Imaging Radiology [facility] [facility] [address] [place] [address] 05/29/2024 8:20 AM EDT Office Visit Family Practice [facility] [address] [place] [address] Jordan Batista MD [address] [place] [address] 06/18/2024 9:00 AM EDT Laboratory Laboratory, [facility] [address] [place] [phone] Maryjane Lacy [facility] [address] [place] [address] 06/25/2024 1:00 PM EDT Office Visit Hematology/Oncology [facility] [place] [address] [facility] [place] [phone] Beth King MD [address] [facility] [place] [address] 11/11/2024 8:00 AM EDT Nurse Only Ancillary [facility] [address] [facility] [place] [address] Lacy, Nurse Annual Wellness [facility] [address] [facility] [place] [address] Scheduled Procedures Name Priority Associated Diagnoses Date/Ti [...] Not on filedocumented as of this encounter Care Teams Simplex Operator Relationship Specialty Start Date End Date Jordan Batista MD [address] [place] [id number] PCP - General Family Medicine 03/18/16 documented as of this encounter
--- OUTSIDE RECORDS SUMMARY | 2024-04-07 17:30 | External Medical Summary | Summary of Care ---
Author Name Unknown Organization [facility] Address [address] [facility] [place] [address] Phone [phone] Care Team Providers Care Director Of Social Work Name Role Phone Unavailable Primary Care Provider Unavailabl e Reason for Visit * Reason Onset Date Comments Medication Refill 04/02/2024 Status Check 04/02/2024 Encounter Details Date Type Department Care Team (Late st Contact Info) Description 04/02/2024 Refill Family [facility] [address] [place] [address] Jordan Sierra MD [address] [place] [address] Allergies Active Allergy Reactions Criticality Noted Date [...] Notes * Telephone Encounter - Ruby Steele [facility] - 04/03/2024 2:23 PM EST Pt calling to request Levothyroxine Sodium 88 MCG Oral Tablet (Levoxyl) . Informed pt that RX is available at their pharmacy. Pt verbalized understanding and stated they will check with their pharmacy regarding this medication. Thank you, Adenike Steele CPhT Forestry Biology Specialist III [facility] [address] [place] [address], [address] [address] * Telephone Encounter - Elia Reyes RPh - 04/03/2024 12:46 PM EST Duplicate request cancelled, new RX sent 04/02/24. Thanks, Elia Reyes Rph, Pharm D. Clinical Pharmacist [facility] [phone] 04/03/2024,12:47 PM documented in this encounter Plan of Treatment Upcoming Encounters Date Type Department Care Team (Late st Contact Info) Description 05/13/2024 8:20 AM EDT Office Visit Hepatology, [facility] [address] [place] [address] Nithya Rodriguez DO [address] [place] [address] 05/23/2024 9:00 AM EDT Imaging Radiology [facility] 1st [facility] [place] [address] [place] [address] [phone] 05/29/2024 8:20 AM EDT Office Visit Family Practice [facility] [address] [place] [address] [address] Jordan Sierra MD [address] [place] [address] [address] 06/18/2024 9:00 AM EDT Laboratory Laboratory, [facility] [address] [place] [phone] Maryjane Lacy [facility] 132 [facility] [place] [address] 06/25/2024 1:00 PM EDT Office Visit Hematology/Oncology [facility] 200 [facility] [place] [phone] Beth King MD [address] [place] [address] 11/11/2024 8:00 AM EDT Nurse Only Ancillary [facility] 132 [facility] [place] [address] Regino, Nurse Annual Wellness [facility] [address] [facility] [place] [address] Scheduled Procedures Name Priority Associated Diagnoses Date/Ti [...]
--- OUTSIDE RECORDS SUMMARY | 2024-04-07 17:30 | External Medical Summary | Summary of Care ---
Author Name Unknown Organization [facility] [address] [facility] [address] Phone [phone] Care Team Providers Care Disability Counselor Name Role Phone Unavailable Primary Care Provider Unavailabl e Encounter Details Date Type Department Care Team (Late st Contact Info) Description 04/05/2024 Orders Only PATIENT PORTAL DO NOT DELETE THIS DEPT USED BY [place] [id number] Allergies Active Allergy Reactions Criticality Noted Date [...] as of this encounter (statuses as of 04/05/2024) Medications MULTIVITAMINS PO TABS 1 TABLET DAILY [...] as of this encounter (statuses as of 04/05/2024) Active Problems Problem Noted Date Diagnosed Date [...] as of this encounter (statuses as of 04/05/2024) Resolved Problems Problem Noted Date Diagnosed Date Resolved Date Viral URI 10/22/2020 05/23/2022 Bloody discharge from left nipple 09/15/2017 04/26/2018 Dyslipidemia, goal to be determined 01/22/2009 10/23/2009 Overview (01/22/2009): Per Lipid Taxonomy. Allergic rhinitis 06/22/2000 01/16/2018 MENOPAUSE - MATT - 1977 11/27/199705/25 Mixed dyslipidemia 11/27/1997 9 Overview (01/22/2009): Per Lipid Taxonomy. documented as of this encounter (statuses as of 04/05/2024) Immunizations Name Administration Dates Next Due Hepatitis [...] No 11/01/2022 Does the household have a [facility] source of income? (Household - for ages [...] 05/13/2024 8:20 AM EDT Office Visit Hepatology, [facility] [address] [place] [address] [address] Nithya Rodriguez, [address] [place] [address] 05/23/2024 9:00 AM EDT Imaging Radiology [facility] 1st [facility] [address] [place] [phone] 05/29/2024 8:20 AM EDT Office Visit Family Practice [facility] [address] [place] [address] Jordan Sierra MD [address] [place] [address] 06/18/2024 9:00 AM EDT Laboratory Laboratory, [facility] [address] [place] [phone] Regino [facility] [address] [place] [address] 06/25/2024 1:00 PM EDT Office Visit Hematology/Oncology [facility] 200 [facility] [place] [address] Beth King MD 200 [facility] [place] [address] 11/11/2024 8:00 AM EDT Nurse Only Ancillary [facility] [address] [place] [address] Regino, Nurse Annual Wellness [facility] 132 [facility] [place] [address] Scheduled Procedures Name Priority Associated Diagnoses Date/Ti me ESOPHAGOGASTRODUODENOSCOPY ( EGD), FLEXIBLE, TRANSORAL, DIAGNOSTIC Recall Portal hypertensive gastropathy (HCC) Health Maintenance Due Date Last Done Comments DTap/Tdap Vaccines (1 - Tdap) 10/24/2009 10/23/2009 Mammogram 06/19/2024 06/20/2023, 05/0 02/2023, 06/07/2022, Additional history exists Depression Screening [...]
--- OUTSIDE RECORDS SUMMARY | 2024-04-07 17:31 | External Medical Summary | Summary of Care ---
Author Name Unknown Organization [facility] Address [address] [facility] [place] [address] Phone [phone] Care Team Providers Care Yarn Texture Machine Operator Name Role Phone Jordan Sierra MD Primary Care Provider + Reason for Referral * Evaluate & Treat - Unlimited Visits (Within 10 days (routine)) - Authorized Specialty Diagnoses / Procedures Referred By Contdeacon t Referred To Contact Hematology/Oncology / Hematology Oncology Diagnoses Thrombocytopenia (HCC) Neutropenia, unspecified type (HCC) Jordan Sierra MD 132 [facility] [place] [address] Referral ID Status Reason Start Date Expiration Date Visits Requested Visits Authorized [id number] Authorized Specialty Services Required 4 [phone] Question Answer Referral Priority Within 10 days (routine) Where should this appointment be scheduled? [facility] Reason for Referral Abnormal CBC Comments Hx chronic low WBC & platelet--both lower than her typical. Please eval/tx Encounter Details Date Type Department Care Team (Late st Contact Info) Description 12/07/2023 Telephone Family Practice [facility] [address] [employer] [place] [address] Jordan Sierra MD [address] [facility] [place] [address] Allergies Active Allergy Reactions Criticality Noted Date [...] as of this encounter (statuses as of 12/08/2023) Medications Medication Sig Dispensed Refills Start Date [...] as of this encounter (statuses as of 12/08/2023) Active Problems Problem Noted Date Diagnosed Date [...] as of this encounter (statuses as of 12/08/2023) Resolved Problems Problem Noted Date Diagnosed Date Resolved Date Viral URI 10/22/2020 05/23/2022 Bloody discharge from left nipple 09/15/2017 04/26/2018 Dyslipidemia, goal to be determined 01/22/2009 10/23/2009 Overview: Per Lipid Taxonomy. Allergic rhinitis 06/22/2000 01/16/2018 MENOPAUSE - MATT - 1977 11/27/199705/25 Mixed dyslipidemia 11/27/1997 9 Overview: Per Lipid Taxonomy. documented as of this encounter (statuses as of 12/08/2023) Immunizations Name Administration Dates Next Due Hepatitis [...] encounter Miscellaneous Notes * Telephone Encounter - Rosalind Youngblood OSA - 12/08/2023 6:47 AM EDT Hem/onc will call her to schedule * Telephone Encounter - Jordan Sirera MD - 12/07/2023 10:38 PM EDT Call [...] 05/13/2024 8:20 AM EDT Office Visit Hepatology, [facility] [address] [place] [address] [address] Nithya Rodriguez DO [address] [place] [address] 05/23/2024 9:00 AM EDT Imaging Radiology [facility] 1st [facility] [address] [place] [address] [address] 05/29/2024 8:20 AM EDT Office Visit Family Practice [facility] [address] [place] [address] [address] Jordan Sierra MD [address] [place] [address] [address] 11/11/2024 8:00 AM EDT [facility] [address] [place] [address] Regino Nurse Annual Wellness [facility] [address] [place] [address] Scheduled Procedures Name Priority Associated Diagnoses Date/Ti [...] (HCC) documented in this encounter Care Teams Yarn Texture Machine Operator Relationship Specialty Start Date End Date Jordan Sierra MD [address] [place] [address] PCP - General Family Medicine 03/18/16 documented as of this encounter
--- OUTSIDE RECORDS SUMMARY | 2024-04-07 17:31 | External Medical Summary | Summary of Care ---
Author Name Unknown Organization [facility] Address [address] [facility] [place] [address] Phone [phone] Care Team Providers Care Cattle Sticker Name Role Phone Jordan Sierra MD Primary Care Provider + Reason for Referral * Evaluate & Treat - Unlimited Visits (Within 10 days (routine)) - Authorized Specialty Diagnoses / Procedures Referred By Contdeacon t Referred To Contact Hematology/Oncology / Hematology Oncology Diagnoses Thrombocytopenia (HCC) Neutropenia, unspecified type (HCC) Jordan Sierra MD [address] [place] [address] Referral ID Status Reason Start Date Expiration Date Visits Requested Visits Authorized [id number] Authorized Specialty Services Required 4 [phone] [...] Contact Info) Description 12/07/2023 Telephone Family Practice [facility] [address] [place] [address] Jordan Sierra MD [address] [place] [address] Test Results Allergies Active Allergy Reactions Criticality [...] encounter Miscellaneous Notes * Telephone Encounter - Ganesh Ragsdale RN - 12/08/2023 9:01 AM EDT Eliazar- please triage. Thanks. * Telephone Encounter - Rosalind Youngblood OSA - 12/08/2023 6:47 AM EDT Hem/onc will call her to schedule * Telephone Encounter - Jordan Sierra MD - 12/07/2023 10:38 PM EDT Call [...] 05/13/2024 8:20 AM EDT Office Visit Hepatology, [facility] [address] [place] [address] Nithya Rodriguez, [address] [place] [address] 05/23/2024 9:00 AM EDT Imaging Radiology [address] [place] [address] 05/29/2024 8:20 AM EDT [facility] [address] [place] [address] Jordan Sierra MD [address] [place] [address] 11/11/2024 8:00 AM EDT Nurse Only Ancillary [facility] [place] [address] [facility], Nurse Annual Wellness [facility] [address] [place] [address] Scheduled Procedures Name Priority Associated Diagnoses Date/Ti [...] (HCC) documented in this encounter Care Teams Cattle Sticker Relationship Specialty Start Date End Date Jordan Sierra MD [address] [place] [address] PCP - General Family Medicine 03/18/16 documented as of this encounter
--- OUTSIDE RECORDS SUMMARY | 2024-04-07 17:31 | External Medical Summary | Summary of Care ---
Author Name Unknown Organization [facility] Address [address] [facility] [place] [address] Phone [phone] Care Team Providers Care Social Studies Department Chair Name Role Phone Jordan Batista MD Primary Care Provider + Reason for Referral * Evaluate & Treat - Unlimited Visits (Within 10 days (routine)) - Authorized Specialty Diagnoses / Procedures Referred By Contdeacon t Referred To Contact Hematology/Oncology / Hematology Oncology Diagnoses Thrombocytopenia (HCC) Neutropenia, unspecified type (HCC) Jordan Batista MD [address] [place] [address] Referral ID Status Reason Start Date Expiration Date Visits Requested Visits Authorized [id number] Authorized Specialty Services Required 4 [phone] [...] Contact Info) Description 12/07/[address] [facility] [address] [place] [address] Jordan Batista MD [address] [place] [address] Test Results Allergies Active Allergy Reactions Criticality [...] encounter Miscellaneous Notes * Telephone Encounter - Jerilyn Bo LPN - 12/11/2023 10:47 AM EDT No Benign Heme triage this week due to provider being out of office. Scheduling: Please schedule with next available Sumit QUIÑONES Hematology, "Thrombocytopenia, Neutropenia" within the next 10-Days. Thank you!! * Telephone Encounter - Bijal Paredes LPN - 12/08/2023 11:55 AM EDT My [employer] message sent. * Addendum Note - Jordan Batista MD - 12/08/2023 11:12 AM EDTAddended by: JORDAN BATISTA on: 12/08/2023 11:12 AM Modules accepted: Orders * Telephone Encounter - Jordan Batista MD - 12/08/2023 11:12 AM EDT Platelet lab ordered--please do before heme appt * Telephone Encounter - Bijal Paredes LPN - 12/08/2023 10:59 AM EDT My [employer] message sent to patient. Called the lab [...] 12/19/2023 4:00 PM EST Office Visit Hematology/Oncology [facility] 200 [facility] [place] [address] Beth King MD 200 [facility] [place] [address] 05/13/2024 8:20 AM EDT Office Visit Hepatology, [facility] [address] [place] [address] Nithya Rodriguez DO [address] [place] [address] 05/23/2024 9:00 AM EDT Imaging Radiology [address] [place] [address] 05/29/2024 8:20 AM EDT Office Visit Family Practice [facility] [address] [place] [address] Jordan Batista MD [address] [place] [address] 11/11/2024 8:00 AM EDT Nurse Only Ancillary [facility] [place] [address] [facility], Nurse Annual Wellness [facility] [address] [place] [address] Scheduled Orders Name Type Priority Associated Diagnoses [...] (HCC) documented in this encounter Care Teams Social Studies Department Chair Relationship Specialty Start Date End Date Jordan Batista MD 132 [facility] [place] [address] PCP - General Family Medicine 03/18/16 documented as of this encounter
--- OUTSIDE RECORDS SUMMARY | 2024-04-07 17:31 | External Medical Summary | Summary of Care ---
Author Name Unknown Organization [facility] Address [address] [facility] [place] [address] Phone [phone] Care Team Providers Care Ampoule Filler And Sealer Name Role Phone Jordan Batista MD Primary Care Provider + Reason for Referral * Evaluate & Treat - Unlimited Visits (Within 10 days (routine)) - Authorized Specialty Diagnoses / Procedures Referred By Contdeacon t Referred To Contact Hematology/Oncology / Hematology Oncology Diagnoses Thrombocytopenia (HCC) Neutropenia, unspecified type (HCC) Jordan Batista MD [address] [employer] [place] [address] Referral ID Status Reason Start Date Expiration Date Visits Requested Visits Authorized [id number] Authorized Specialty Services Required 4 [phone] [...] Contact Info) Description 12/07/2023 Telephone Family Practice [facility] [address] [place] [address] Jordan Batista MD [address] [place] [address] Test Results Allergies Active Allergy Reactions Criticality [...] encounter Miscellaneous Notes * Telephone Encounter - Bijal Paredes LPN - 12/08/2023 11:55 AM EDT My [employer] message sent. * Addendum Note - Jordan Batista MD - 12/08/2023 11:12 AM EDTAddended by: JORDAN BATISTA on: 12/08/2023 11:12 AM Modules accepted: Orders * Telephone Encounter - Jordan Batista MD - 12/08/2023 11:12 AM EDT Platelet lab ordered--please do before heme appt * Telephone Encounter - Bijal Paredes LPN - 12/08/2023 10:59 AM EDT My [employer] message sent to patient. Called the lab [...] 05/13/2024 8:20 AM EDT Office Visit Hepatology, [facility] [address] [place] [address] Nithya Rodriguez DO [address] [place] [address] 05/23/2024 9:00 AM EDT Imaging Radiology [facility] 1st [facility] [address] [place] [address] 05/29/2024 8:20 AM EDT Office Visit Family Practice [facility] [address] [place] [address] Jordan Batista MD [address] [place] [address] 11/11/2024 8:00 AM EDT Nurse Only Ancillary [facility] [address] [facility] [place] [address] Regino, Nurse Annual Wellness [facility] [address] [place] [address] Scheduled Orders Name Type Priority Associated Diagnoses [...] (HCC) documented in this encounter Care Teams Ampoule Filler And Sealer Relationship Specialty Start Date End Date Jordan Batista MD [address] [place] [address] [address] PCP - General Family Medicine 03/18/16 documented as of this encounter
--- OUTSIDE RECORDS SUMMARY | 2024-04-07 17:31 | External Medical Summary | Summary of Care ---
Author Name Unknown Organization [facility] Address [address] [facility] [place] [address] Phone [phone] Care Team Providers Care Corset Fitter Name Role Phone Jordan Sierra MD Primary Care Provider + Reason for Referral * Evaluate & Treat - Unlimited Visits (Within 10 days (routine)) - Authorized Specialty Diagnoses / Procedures Referred By Contdeacon t Referred To Contact Hematology/Oncology / Hematology Oncology Diagnoses Thrombocytopenia (HCC) Neutropenia, unspecified type (HCC) Jordan Sierra MD [address] [place] [address] Referral ID Status Reason Start Date Expiration Date Visits Requested Visits Authorized [id number] Authorized Specialty Services Required 4 [phone] Question Answer Referral Priority Within 10 days (routine) Where should this appointment be scheduled? [facility] Reason for Referral Abnormal CBC Comments Hx chronic low WBC & platelet--both lower than her typical. Please eval/tx Encounter Details Date Type Department Care Team (Late st Contact Info) Description 12/07/2023 Telephone Family Practice [facility] [address] [place] [address] Jordan Sierra MD [address] [place] [address] Allergies Active Allergy Reactions Criticality Noted Date [...] encounter Miscellaneous Notes * Telephone Encounter - Jordan Sierra MD [...] 05/13/2024 8:20 AM EDT Office Visit Hepatology, [facility] [address] [place] [address] Nithya Rodriguez, [address] [place] [address] 05/23/2024 9:00 AM EDT Imaging Radiology [facility] [address] [facility] [address] [place] [address] 05/29/2024 8:20 AM EDT Office Visit Family Practice [facility] [address] [place] [address] Jordan Sierra MD [address] [place] [address] [address] 11/11/2024 8:00 AM EDT Nurse Only Ancillary [facility] [address] [place] [address] Regino, Nurse Annual Wellness [facility] [address] [place] [address] Scheduled Procedures Name Priority Associated Diagnoses Date/Ti [...] (HCC) documented in this encounter Care Teams Corset Fitter Relationship Specialty Start Date End Date Jordan Sierra MD [address] [place] [address] PCP - General Family Medicine 03/18/16 documented as of this encounter
--- OUTSIDE RECORDS SUMMARY | 2024-04-07 17:31 | External Medical Summary ---
Author Name Unknown Address Unknown Organization K01:[facility] - [address] [facility] [place] [address] Laboratory Report Ordering Provider Test Date Status LYNNE LUGO 12/05/2023 08:58:16 Final Observation Date Value Abnormality Reference (Units ) Status TSH 12/05/2023 08:58:16 0.43 0.27-4.20 (uIU/mL) Final Performing Location [facility] [address] [facility] [address]
--- OUTSIDE RECORDS SUMMARY | 2024-04-07 17:31 | External Medical Summary | Summary of Care ---
Author Name Unknown Organization [facility] Address [address] [facility] [place] [address] Phone [phone] Care Team Providers Care Cellar Hand Name Role Phone Jordan Sierra MD Primary Care Provider + Reason for Referral * Evaluate & Treat - Unlimited Visits (Within 10 days (routine)) - Authorized Specialty Diagnoses / Procedures Referred By Contdeacon t Referred To Contact Hematology/Oncology / Hematology Oncology Diagnoses Thrombocytopenia (HCC) Neutropenia, unspecified type (HCC) Jordan Sierra MD [address] [place] [address] Referral ID Status Reason Start Date Expiration Date Visits Requested Visits Authorized [id number] Authorized Specialty Services Required 4 [phone] Question Answer Referral Priority Within 10 days (routine) Where should this appointment be scheduled? [facility] Reason for Referral Abnormal CBC Comments Hx chronic low WBC & platelet--both lower than her typical. Please eval/tx Encounter Details Date Type Department Care Team (Late st Contact Info) Description 12/07/2023 Telephone Family Practice [facility] [address] [place] [address] Jordan Sierra MD [address] [place] [address] Allergies Active Allergy Reactions Criticality Noted Date [...] 05/13/2024 8:20 AM EDT Office Visit Hepatology, [facility] [address] [place] [address] Nithya Rodriguez, [address] [place] [address] 05/23/2024 9:00 AM EDT Imaging Radiology [facility] 1st [facility] [address] [place] [address] 05/29/2024 8:20 AM EDT Office Visit Family Practice [facility] [address] [place] [address] Jordan Sierra MD [address] [place] [address] 11/11/2024 8:00 AM EDT Nurse Only Ancillary [facility] [address] [place] [address] Regino, Nurse Annual Wellness [facility] [address] [place] [address] Scheduled Procedures Name Priority Associated Diagnoses Date/Ti [...] (HCC) documented in this encounter Care Teams Cellar Hand Relationship Specialty Start Date End Date Jordan Sierra MD [address] [place] [address] PCP - General Family Medicine 03/18/16 documented as of this encounter
--- OUTSIDE RECORDS SUMMARY | 2024-04-07 17:31 | External Medical Summary | Summary of Care ---
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) Procedures MRI LIVER W WO CONTRAST Nithya Rodriguez DO [address] [place] [address] Referral ID Status Reason Start Date Expiration Date V isits Requested Visits Authorized [id number] Pending Review 05/23/2024 999 999 Reason for Visit * Reason Onset Date Comments Test Results Lab 11/23/2023 Encounter Details Date Type Department Care Team (Late st Contact Info) Description 11/23/2023 Telephone Hepatology, [facility] [address] [place] [address] Nithya Rodriguez DO [address] [place] [address] Test Results Lab Allergies Active Allergy Reactions Criticality Noted Date [...] as of this encounter (statuses as of 11/23/2023) Medications Medication Sig Dispensed Refills Start Date [...] as of this encounter (statuses as of 11/23/2023) Active Problems Problem Noted Date Diagnosed Date Portal hypertension 05/25/2023 Liver cirrhosis secondary to [...] as of this encounter (statuses as of 11/23/2023) Resolved Problems Problem Noted Date Diagnosed Date Resolved Date Viral URI 10/22/2020 05/23/2022 Bloody discharge from left nipple 09/15/2017 04/26/2018 Dyslipidemia, goal to be determined 01/22/2009 10/23/2009 Overview: Per Lipid Taxonomy. Allergic rhinitis 06/22/2000 01/16/2018 MENOPAUSE - MATT - 1977 11/27/199705/25 Mixed dyslipidemia 11/27/1997 9 Overview: Per Lipid Taxonomy. documented as of this encounter (statuses as of 11/23/2023) Immunizations Name Administration Dates Next Due Hepatitis [...] encounter Miscellaneous Notes * Telephone Encounter - Marce Manzo LPN - 11/23/2023 3:38 PM EDT Attempted to call Dayna, but VM is full and cannot leave a message. My G message sent * Telephone Encounter - Nithya Rodriguez DO - 11/23/2023 3:01 PM EDT Nursing please let patient know abdominal ultrasound from today shows no liver lesions. Radiology recommending MRI liver for next HCC screening as some parts of her liver were difficult to see clearly on ultrasound. Scheduling please arrange MRI in 6 months 05/2024 for HCC screening. Order in. Nithya Rodriguez DO documented in this encounter Plan of Treatment Upcoming Encounters Date Type Department Care Team (Late st Contact Info) Description 05/13/2024 8:20 AM EDT Office Visit Hepatology, [facility] [address] [place] [address] Nithya Rodriguez DO [address] [place] [address] 05/29/2024 8:20 AM EDT Office Visit Family Practice [facility] [address] [place] [address] Jordan Sierra MD [address] [place] [address] 11/11/2024 8:00 AM EDT Nurse Only Ancillary [facility] [address] [place] [address] [place], Nurse Annual Wellness [facility] [address] [place] [address] Scheduled Orders Name Type Priority Associated Diagnoses Orde r Schedule MRI LIVER W WO CONTRAST Medical Imaging Routine 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) Expected: 05/23/2024, Expires: 12/23/2024 Scheduled Procedures Name Priority Associated Diagnoses Date/Ti me ESOPHAGOGASTRODUODENOSCOPY ( EGD), FLEXIBLE, TRANSORAL, DIAGNOSTIC Recall Portal hypertensive gastropathy (HCC) Health Maintenance Due Date Last Done Comments DTap/Tdap Vaccines (1 - Tdap) 10/24/2009 10/23/2009 Mammogram 06/19/2024 06/20/2023, 050 02/2023, 06/07/2022, Additional history exists GFR 11/01/2024 11/02/2023, 12/15, 07/04/2022, Additional history exists TSH 11/01/2024 11/02/2023, 05/14, 05/23/2022, Additional history exists Adult Wellness Visit 11/05/2024 11/06/2023, 11/02/19 23 Depression Screening 11/05/2024 11/06/2023 Albumin/Creatinine Ratio 05/23/2025 05/23/2022 DXA Scan 06/08/2025 [...] as of this encounter Visit Diagnoses Diagnosis 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
--- OUTSIDE RECORDS SUMMARY | 2024-04-07 17:31 | External Medical Summary ---
Author Name Unknown Address Unknown Organization K01:[facility] - [address] [facility]. [place] [address] Laboratory Report Ordering Provider Test Date Status LYNNE LUGO 12/05/2023 08:58:16 Final Observation Date Value Abnormality Reference (Units ) Status SYNC LEUKOCYTES IN BLOOD BY AUTOMATED COUNT 12/05/2023 08:58:16 3.03 Below low normal 4.00-10.80 (K/uL) Final Segs 12/05/2023 08:58:16 50.5 40.0-75.0 (%) Final Lymphs % 12/05/2023 08:58:16 34.3 18.0-42.0 (%) Final Monos 12/05/2023 08:58:16 9.9 1.0-11.0 (%) Final Eosinophils 12/05/2023 08:58:16 4.3 0.0-6.0 (%) Final Basos 12/05/2023 08:58:16 1.0 0.0-2.0 (%) Final Immature Granulocyte, Percent 12/05/2023 08:58:16 0.0 0.0-2.0 (%) Final Absolute Segs 12/05/2023 08:58:16 1.53 Below low normal 1.80-7.70 (K/uL) Final Lymphs, absolute 12/05/2023 08:58:16 1.04 1.00-4.80 (K/ul) Final Monos, Abs 12/05/2023 08:58:16 0.30 0.00-1.10 (K/uL) Final Eos, Abs 12/05/2023 08:58:16 0.13 0.00-0.70 (K/uL) Final Basos, Abs 12/05/2023 08:58:16 0.03 0.00-0.20 (K/uL) Final Immature Granulocytes, Number 12/05/2023 08:58:16 0.00 0.00-0.20 (K/uL) Final Performing Location LABORATORY [facility] - [address] [facility] [address]
--- OUTSIDE RECORDS SUMMARY | 2024-04-07 17:31 | External Medical Summary | Summary of Care ---
Author Name Unknown Organization [facility] Address [address] [facility] [place] [address] Phone [phone] Care Team Providers Care Administrator Name Role Phone Jordan Sierra MD Primary Care Provider + Reason for Referral * Evaluate & Treat - Unlimited Visits (Within 10 days (routine)) - Authorized Specialty Diagnoses / Procedures Referred By Contdeacon t Referred To Contact Hematology/Oncology / Hematology Oncology Diagnoses Thrombocytopenia (HCC) Neutropenia, unspecified type (HCC) Jordan Sierra MD [address] [place] [address] Referral ID Status Reason Start Date Expiration Date Visits Requested Visits Authorized [id number] Authorized Specialty Services Required 4 [phone] [...] Contact Info) Description 12/07/2023 Telephone Family Practice [facility] [address] [place] [address] Jordan Sierra MD [address] [place] [address] Test Results Allergies Active Allergy Reactions Criticality [...] LPN - 12/08/2023 10:59 AM EDT My [employer] message sent to patient. Called the lab [...] 05/13/2024 8:20 AM EDT Office Visit Hepatology, [address] [place] [address] Nithya Rodriguez DO [address] [place] [address] 05/23/2024 9:00 AM EDT Imaging Radiology [facility] 1st [facility] [place] [address] [place] [address] 05/29/2024 8:20 AM EDT Office Visit Family Practice [facility] [address] [place] [address] Jordan Sierra MD [address] [place] [address] 11/11/2024 8:00 AM EDT Nurse Only Ancillary [facility] [address] [place] [address] [facility], Nurse Annual Wellness [facility] [address] [place] [address] Scheduled Procedures Name Priority Associated Diagnoses Date/Ti [...] (HCC) documented in this encounter Care Teams Administrator Relationship Specialty Start Date End Date Jordan Sierra MD [address] [place] [address] PCP - General Family Medicine 03/18/16 documented as of this encounter
--- OUTSIDE RECORDS SUMMARY | 2024-04-07 17:31 | External Medical Summary | Summary of Care ---
Author Name Unknown Organization [facility] Address [address] [facility] [place] [address] Phone [phone] Care Team Providers Care Can Closing Machine Operator Name Role Phone Jordan Batista MD Primary Care Provider + Reason for Referral * Evaluate & Treat - Unlimited Visits (Within 10 days (routine)) - Authorized Specialty Diagnoses / Procedures Referred By Contdeacon t Referred To Contact Hematology/Oncology / Hematology Oncology Diagnoses Thrombocytopenia (HCC) Neutropenia, unspecified type (HCC) Jordan Batista MD [address] [place] [address] Referral ID Status Reason Start Date Expiration Date Visits Requested Visits Authorized [id number] Authorized Specialty Services Required 4 [phone] [...] Contact Info) Description 12/07/2023 Telephone Family Practice [facility] [address] [place] [address] Jordan Batista MD [address] [place] [address] Test Results Allergies Active Allergy Reactions Criticality [...] as of this encounter Miscellaneous Notes * Addendum Note - Jordan Batista MD - 12/08/2023 11:12 AM EDTAddended by: JORDAN BATISTA on: 12/08/2023 11:12 AM Modules accepted: Orders * Telephone Encounter - Jordan Batista MD - 12/08/2023 11:12 AM EDT Platelet lab ordered--please do before heme appt * Telephone Encounter - Bijal Paredes LPN - 12/08/2023 10:59 AM EDT My [employer] message sent to patient. Called the lab [...] 05/13/2024 8:20 AM EDT Office Visit Hepatology, [facility] [address] [place] [address] Nithya Rodriguez, [address] [place] [address] 05/23/2024 9:00 AM EDT Imaging Radiology [facility] 1st [facility] [place] [address] 05/29/2024 8:20 AM EDT Office Visit Family Practice [facility] [address] [place] [address] Jordan Batista MD [address] [place] [address] 11/11/2024 8:00 AM EDT Nurse Only Ancillary [facility] [address] [facility] [place] [address] [facility], Nurse Annual Wellness [facility] [address] [facility] [address] Scheduled Orders Name Type Priority Associated Diagnoses [...] (HCC) documented in this encounter Care Teams Can Closing Machine Operator Relationship Specialty Start Date End Date Jordan Batista MD [address] [place] [address] PCP - General Family Medicine 03/18/16 documented as of this encounter
--- OUTSIDE RECORDS SUMMARY | 2024-04-07 17:31 | External Medical Summary | Summary of Care ---
Author Name Unknown Organization [facility] Address [address] [facility] [place] [address] Phone [phone] Care Team Providers Care Marble Installer Supervisor Name Role Phone Jordan Sierra MD Primary Care Provider + Reason for Referral * Evaluate & Treat - Unlimited Visits (Within 10 days (routine)) - Authorized Specialty Diagnoses / Procedures Referred By Contdeacon t Referred To Contact Hematology/Oncology / Hematology Oncology Diagnoses Thrombocytopenia (HCC) Neutropenia, unspecified type (HCC) Jordan Sierra MD [address] [employer] [address] [place] [address] Referral ID Status Reason Start Date Expiration Date Visits Requested Visits Authorized [id number] Authorized Specialty Services Required 4 [phone] Question Answer Referral Priority Within 10 days (routine) Where should this appointment be scheduled? [facility] Reason for Referral Abnormal CBC Comments Hx chronic low WBC & platelet--both lower than her typical. Please eval/tx Encounter Details Date Type Department Care Team (Late st Contact Info) Description 12/07/2023 Telephone Family Practice [facility] [address] [employer] [address] [place] [address] Jordan Sierra MD [address] [place] [address] Allergies Active Allergy Reactions Criticality Noted Date [...] 05/13/2024 8:20 AM EDT Office Visit Hepatology, [facility] [address] [place] [address] Nithya Rodriguez DO [address] [place] [address] 05/23/2024 9:00 AM EDT Imaging Radiology [facility] 1st [facility] [address] [place] [address] 05/29/2024 8:20 AM EDT Office Visit Family Practice [facility] [address] [place] [address] Jordan Sierra MD [address] [place] [address] 11/11/2024 8:00 AM EDT [facility] [address] [place] [address] [place] Nurse Annual Wellness [facility] [address] [place] [address] Scheduled Procedures Name Priority Associated Diagnoses Date/Ti [...] (HCC) documented in this encounter Care Teams Marble Installer Supervisor Relationship Specialty Start Date End Date Jordan Sierra MD [address] [place] [address] PCP - General Family Medicine 03/18/16 documented as of this encounter
--- OUTSIDE RECORDS SUMMARY | 2024-04-07 17:31 | External Medical Summary | Summary of Care ---
Author Name Unknown Organization [facility] Address [address] [facility] [address] Phone [phone] Care Team Providers Care Yield Clerk Name Role Phone Jordan Sierra MD Primary Care Provider + Reason for Visit * Reason Comments Outpatient Testing Encounter Details Date Type Department Care Team (Latest Contact Info) Description 12/05/2023 9:00 AM EDT Laboratory Laboratory, [facility] [address] [facility] [place] [address] [email or web address] [address] [facility] [address] Thrombocytopenia (HCC); Essential hypertension with goal blood pressure less than 140/90; Hypothyroidism, unspecified type Allergies Active Allergy Reactions Criticality Noted Date [...] as of this encounter (statuses as of 12/05/2023) Medications Medication Sig Dispensed Refills Start Date [...] as of this encounter (statuses as of 12/05/2023) Active Problems Problem Noted Date Diagnosed Date [...] as of this encounter (statuses as of 12/05/2023) Resolved Problems Problem Noted Date Diagnosed Date Resolved Date Viral URI 10/22/2020 05/23/2022 Bloody discharge from left nipple 09/15/2017 04/26/2018 Dyslipidemia, goal to be determined 01/22/2009 10/23/2009 Overview: Per Lipid Taxonomy. Allergic rhinitis 06/22/2000 01/16/2018 MENOPAUSE - MATT - 1977 11/27/199705/25 Mixed dyslipidemia 11/27/1997 9 Overview: Per Lipid Taxonomy. documented as of this encounter (statuses as of 12/05/2023) Immunizations Name Administration Dates Next Due Hepatitis [...] AM EDT Office Visit Hepatology, [facility] [address] [place] [address] Nithya Rodriguez, [address] [place] [address] 05/23/2024 9:00 AM EDT Imaging Radiology [facility] 1st Floor, [place] [address] [place] [address] 05/29/2024 8:20 AM EDT Office Visit Family Practice [facility] [address] [place] [address] Jordan Sierra MD [address] [place] [address] 11/11/2024 8:00 AM EDT Nurse Only Ancillary [facility] [address] [place] [address] [facility], Nurse Annual Wellness [facility] [[email or web address]] [address] [place] [address] Pending Results Name Type Priority Associated Diagnoses Date /Time CBC WITH WBC DIFFERENTIAL AND ANEMIA REFLEX WORKUP Lab Routine Thrombocytopenia ([facility]) 12/05/2023 8:58 AM EDT BASIC METABOLIC PANEL Lab Routine Essential hypertension with goal blood pressure less than 140/90 12/05/2023 8:58 AM EDT TSH WITH FREE T4 IF INDICATED Lab Routine Hypothyroidism, unspecified type 12/05/2023 8:58 AM EDT ANEMIA CBC Lab Routine Thrombocytopenia ([facility]) 12/05/2023 8:58 AM EDT DIFFERENTIAL, AUTOMATED Lab Routine Thrombocytopenia ([facility]) 12/05/2023 8:58 AM EDT ANEMIA REFLEX CHEMISTRY HOLD Lab Routine Thrombocytopenia ([facility]) 12/05/2023 8:58 AM EDT Scheduled Procedures Name Priority Associated Diagnoses Date/Ti me ESOPHAGOGASTRODUODENOSCOPY ( EGD), FLEXIBLE, TRANSORAL, DIAGNOSTIC Recall Portal hypertensive gastropathy (HCC) Health Maintenance Due Date Last Done Comments DTap/Tdap Vaccines (1 - Tdap) 10/24/2009 10/23/2009 Mammogram 06/19/2024 06/20/2023, 05/0 02/2023, 06/07/2022, Additional history exists GFR 11/01/2024 11/02/2023, /2 08/2022, 07/04/2022, Additional history exists TSH 11/01/2024 11/02/2023, 05/14, 05/23/2022, Additional history exists Adult Wellness Visit 11/05/2024 11/06/2023, 11/02/19 Depression Screening 11/05/2024 11/06/2023 Albumin/Creatinine Ratio 05/23/2025 [...] Visit Diagnoses Diagnosis Thrombocytopenia (HCC) Thrombocytopenia, unspecified Essential hypertension with goal blood pressure less than 140/90 Hypothyroidism, unspecified type documented in this encounter Care Teams Yield Clerk Relationship Specialty Start Date End Date Jordan Sierra MD [address] [facility] [place] [address] PCP - General Family Medicine 03/18/16 documented as of this encounter
--- OUTSIDE RECORDS SUMMARY | 2024-04-07 17:31 | External Medical Summary | Summary of Care ---
Author Name Unknown Organization [facility] Address [address] [facility] [address] Phone [phone] Care Team Providers Care Supervisor Insulation Name Role Phone Jordan Sierra MD Primary Care Provider + Reason for Visit * Reason Onset Date Comments Medication Question 12/06/2023 Encounter Details Date Type Department Care Team (Late st Contact Info) Description 12/06/2023 Telephone Family Practice [facility] [address] [place] [phone] Jordan Sierra MD [address] [place] [address] Medication Question Allergies Active Allergy Reactions Criticality Noted Date [...] as of this encounter (statuses as of 12/06/2023) Medications Medication Sig Dispensed Refills Start Date [...] as of this encounter (statuses as of 12/06/2023) Active Problems Problem Noted Date Diagnosed Date [...] as of this encounter (statuses as of 12/06/2023) Resolved Problems Problem Noted Date Diagnosed Date Resolved Date Viral URI 10/22/2020 05/23/2022 Bloody discharge from left nipple 09/15/2017 04/26/2018 Dyslipidemia, goal to be determined 01/22/2009 10/23/2009 Overview: Per Lipid Taxonomy. Allergic rhinitis 06/22/2000 01/16/2018 MENOPAUSE - MATT - 1977 11/27/199705/25 Mixed dyslipidemia 11/27/1997 9 Overview: Per Lipid Taxonomy. documented as of this encounter (statuses as of 12/06/2023) Immunizations Name Administration Dates Next Due Hepatitis [...] No 11/01/2022 Does the household have a [facility] source of income? (Household - for ages [...] encounter Miscellaneous Notes * Telephone Encounter - Leisa Stringer LPN - 12/06/2023 2:54 PM EDT Sent My[employer] message to patient regarding message from provider. * Telephone Encounter - Jordan Sierra MD - 12/06/2023 11:02 AM EDT New TSH lab improved--can continue current dose, no changes. * Telephone Encounter - Lori Delgado PHARM Tech - 12/06/2023 10:37 AM EDT Patient recently had her lab work done. She would like to know if there is going to be a change in her levothyroxine. Please advise. Lori [employer] Director II Centralized Clinical Pharmacy Services 12/06/2023 10:39 AM documented in this encounter Plan of Treatment Upcoming Encounters Date Type Department Care Team (Late st Contact Info) Description 05/13/2024 8:20 AM EDT Office Visit Hepatology, [facility] [address] [place] [address] Nithya Rodriguez DO [address] [place] [address] 05/23/2024 9:00 AM EDT Imaging Radiology [facility] 1st [facility] [address] [place] [address] 05/29/2024 8:20 AM EDT Office Visit Family Practice [facility] [address] [place] [address] Jordan Sierra MD [address] [place] [address] 11/11/2024 8:00 AM EDT Nurse Only Ancillary [facility] [address] [place] [address] [place], Nurse Annual Wellness [facility] [address] [place] [address] Scheduled Procedures Name Priority Associated Diagnoses Date/Ti [...] filedocumented as of this encounter Care Teams Supervisor Insulation Relationship Specialty Start Date End Date Jordan Sierra MD [address] [place] [address] PCP - General Family Medicine 03/18/16 documented as of this encounter
--- OUTSIDE RECORDS SUMMARY | 2024-04-07 17:31 | External Medical Summary ---
Author Name Unknown Address Unknown Organization K0G[facility] [address] [place] [address] Laboratory Report Ordering Provider Test Date Status LYNNE LUGO 12/05/2023 08:58:16 Final Observation Date Value Abnormality Reference (Units ) Status BUN 12/05/2023 08:58:16 16 6-20 (mg/dL) Final Creatinine 12/05/2023 08:58:16 0.7 0.5-1.0 (mg/dL) Final Glomerular filtration rate/1.73 sq M.predicted [Volume Rate/Area] in Serum, Plasma or Blood by Creatinine-based formula (CKD-EPI) 12/05/2023 08:58:16 84 >=60 (mL/min) Final eGFR is calculated based on the CKD-EPI 2020 equation. Sodium 12/05/2023 08:58:16 141 135-146 (m mol/L) Final Potassium 12/05/2023 08:58:16 4.2 3.5-5.1 (m mol/L) Final Cl 12/05/2023 08:58:16 106 98-107 (mm ol/L) Final CO2 12/05/2023 08:58:16 26 22-32 (mmo l/L) Final Anion gap 12/05/2023 08:58:16 9 7-15 (mmol /L) Final Glucose 12/05/2023 08:58:16 87 70-120 (mg /dL) Final Calcium 12/05/2023 08:58:16 8.4 8.4-10.2 ( mg/dL) Final Performing Location LABORATORY [facility] [place] [address] - [address] [place] [address]
--- OUTSIDE RECORDS SUMMARY | 2024-04-07 17:31 | External Medical Summary ---
Author Name Unknown Address Unknown Organization : Laboratory Report Ordering Provider Test Date Status LYNNE LUGO 12/11/2023 13:07:38 Final Observation Date Value Abnormality Reference (Units ) Status ANTI-IGG 12/11/2023 13:07:38 NEGATIVE NEGATIVE Final This test was developed and its analytical
performance characteristics have been determined
by [employer]. It has not been cleared or
approved by FDA. This assay has been validated
pursuant to the CLIA regulations and is used for
clinical purposes.
Test performed by [employer]
[address],
[place] [address]

Doctor Chiropractic: Elen Cerda MD,PHD,LYDIA
Test Reported by [facility],
[employer] [facility],
[address] [place], [place]
Ganesh Jacobson M.D., Ph.D., Director of Laboratories
, CLIA [id number] Performing Location
--- OUTSIDE RECORDS SUMMARY | 2024-04-07 17:31 | External Medical Summary ---
Author Name Unknown Address Unknown Organization K01:[facility] [place] [facility] [place] [address] Laboratory Report Ordering Provider Test Date Status LYNNE LUGO 12/05/2023 08:58:16 Final Observation Date Value Abnormality Reference (Units ) Status WBC, Total 12/05/2023 08:58:16 3.03 Below low normal 4. 00-10.80 (K/uL) Final RBC 12/05/2023 08:58:16 3.96 3.85-5.15 (M/uL) Final Hemoglobin 12/05/2023 08:58:16 12.5 12.0-15.3 (g/dL) Final Anemia reflex testing trigge rs on a HGB < 12.0 for Females and HGB < 13.0 for Males in accordance with the WHO Anemia Guidelines
Anemia reflex testing triggers on a HGB < 12.0 for Females and HGB < 13.0 for Males in accordance with the WHO Anemia Guidelines HCT 12/05/2023 08:58:16 37.7 36.0-45.2 (%) Final MCV 12/05/2023 08:58:16 95.2 81.5-97.5 (fL) Final MCH 12/05/2023 08:58:16 31.6 27.0-34.0 (pg) Final MCHC 12/05/2023 08:58:16 33.2 32.0-36.0 (g/dL) Final RDW 12/05/2023 08:58:16 13.8 11.5-15.5 (%) Final Platelets 12/05/2023 08:58:16 61 Below low normal 140 -400 (K/uL) Final MPV 12/05/2023 08:58:16 11.4 6.6-11.1 ( fL) Final Nucleated erythrocytes/100 leukocytes [Ratio] in Blood by Automated count 12/05/2023 08:58:16 0 <=0 (/100 WBCs) Final Performing Location [facility] - [address] [facility] [address]
--- OUTSIDE RECORDS SUMMARY | 2024-04-07 17:32 | External Medical Summary ---
Author Name Unknown Address Unknown Organization K0G:[facility] [address] [place] [id number] Laboratory Report Ordering Provider Test Date Status DWIGHT DEGROOT 11/02/2023 09:49:42 Final Observation Date Value Abnormality Reference (Units ) Status SYNC LEUKOCYTES IN BLOOD BY AUTOMATED COUNT 11/02/2023 09:49:42 3.58 Below low normal 4.00-10.80 (K/uL) Final Segs 11/02/2023 09:49:42 53.4 40.0-75.0 (%) Final Lymphs % 11/02/2023 09:49:42 33.4 18.0-42.0 (%) Final Monos 11/02/2023 09:49:42 9.5 1.0-11.0 (%) Final Eosinophils 11/02/2023 09:49:42 3.4 0.0-6.0 (%) Final Basos 11/02/2023 09:49:42 0.3 0.0-2.0 (%) Final Absolute Segs 11/02/2023 09:49:42 2.01 1.80-7.70 (K/uL) Final Lymphs, absolute 11/02/2023 09:49:42 1.26 1.00-4.80 (K/ul) Final Monos, Abs 11/02/2023 09:49:42 0.36 0.00-1.10 (K/uL) Final Eos, Abs 11/02/2023 09:49:42 0.13 0.00-0.70 (K/uL) Final Basos, Abs 11/02/2023 09:49:42 0.01 0.00-0.20 (K/uL) Final Per[facility] Location [facility] [address] [facility] [address] [place] [id number]
--- OUTSIDE RECORDS SUMMARY | 2024-04-07 17:32 | External Medical Summary ---
Author Name Unknown Address Unknown Organization K0G:[facility] [place] [address] - [address] [place] [address] Laboratory Report Ordering Provider Test Date Status DWIGHT DEGROOT 11/02/2023 09:49:42 Final Observation Date Value Abnormality Reference (Units ) Status Albumin 11/02/2023 09:49:42 3.8 3.8-5.0 (g/dL) Final AST (Aspartate aminotransferase) 11/02/2023 09:49:42 38 Above high normal 10-35 (U/L) Final Alk Phos 11/02/2023 09:49:42 112 35-130 (U/L) Final ALT (Alanine aminotransferase) 11/02/2023 09:49:42 26 10-35 (U/L) Final Bilirubin, Total 11/02/2023 09:49:42 2.9 Above high normal <=1.2 (mg/dL) Final Bilirubin, Direct 11/02/2023 09:49:42 0.5 Above high normal 0.0-0.3 (mg/dL) Final Protein 11/02/2023 09:49:42 6.8 6.0-8.3 (g/dL) Final [facility] [address] [facility] [address] [place] [id number]
--- OUTSIDE RECORDS SUMMARY | 2024-04-07 17:32 | External Medical Summary | Summary of Care ---
Author Name Unknown Organization [facility] Address [address] [facility] [place] [address] Phone [phone] Care Team Providers Care Foundation Coordinator Name Role Phone Jordan Sierra MD Primary Care Provider + Reason for Visit * Reason Comments Follow Up Pt here to f/u for c irrhosis/MAHAJAN. Pt states she is doing well. No new complaints. Encounter Details Date Type Department Care Team (Latest Contact Info) Description 11/02/2023 9:00 AM EDT Office Visit Hepatology, [facility] [address] [place] [address] Nithya Rodriguez DO [address] [place] [id number] Metabolic dysfunction-associated steatohepatitis (MASH)*; Cirrhosis of liver without ascites, unspecified hepatic cirrhosis type (HCC) Allergies Active Allergy Reactions Criticality [...] as of this encounter (statuses as of 11/02/2023) Medications Medication Sig Dispensed Refills Start Date End Date Status MULTIVITAMINS PO TABS 1 TABLET DAILY 05/24/2012 Active vitamin c (ASCORBIC ACID) 500 MG Tablet Take 2 Tablets by mouth in the morning. Active Levothyroxine Sodium 100 MCG Oral Tablet (Levoxyl)Indication s:Hypothyroidism, unspecified type Take 1 Tablet by mouth in the morning. (at least 30 min prior to breakfast or other meds). 90 Tablet 1 06/18/2023 Active Lansoprazole 30 MG Oral Capsule Delayed Release (Prevacid)Indicatio ns:Esophagitis Take 1 Capsule by mouth in the morning. 30 minutes before the first meal of the day.. 90 Capsule 3 06/20/2023 Active Additional Information Patient not taking.Reported on 11/02/2023 Simvastatin 20 MG Oral Tablet (Zocor)Indications: Dyslipidemia, [...] Tablet by mouth in the morning. Active documented as of this encounter (statuses as of 11/02/2023) Active Problems Problem Noted Date Diagnosed Date [...] as of this encounter (statuses as of 11/02/2023) Resolved Problems Problem Noted Date Diagnosed Date Resolved Date Viral URI 10/22/2020 05/23/2022 Bloody discharge from left nipple 09/15/2017 04/26/2018 Dyslipidemia, goal to be determined 01/22/2009 10/23/2009 Overview: Per Lipid Taxonomy. Allergic rhinitis 06/22/2000 01/16/2018 MENOPAUSE - MATT - 1978 11/27/199705/25 Mixed dyslipidemia 11/27/1997 9 Overview: Per Lipid Taxonomy. documented as of this encounter (statuses as of 11/02/2023) Immunizations Name Administration Dates Next Due Hepatitis [...] Date Recorded PHQ Adult Total Score 0 11/01/2022 Hunger Vital Sign Answer Date Recorded Within [...] Sign Reading Time Taken Comments Blood Pressure 128/68 11/02/2023 8:59 AM EDT Pulse 64 11/02/2023 8:59 AM EDT Temperature 36.7 C (98.1 F) 11/02/2023 8:59 AM ED T Respiratory Rate - - Oxygen Saturation - - Inhaled Oxygen Concentration - - Weight 79.4 kg (175 lb) 11/02/2023 8:59 AM EDT Height - - Body Mass Index 31 05/25/2023 7:59 AM EDT documented in this encounter Progress Notes * Nithya Rodriguez, DO - 11/02/2023 9:25 AM EDT Images from the original note were not included. Hepatology Clinic Note Date of appointment: 11/02/2023 Referred by: History of Present Illness: Dayna Lopez is a 78 year old F with PMH notable for HTN, HLD, hypothyroidism, OA, rosacea who presents today for follow up of compensated MASH cirrhosis. She underwent an US of the abdomen in May 2022 for thrombocytopenia and elevated LFTs found to have cirrhosis on imaging with probable varices. Patient states she was never told in the past that she ever had any liver problems or abnormalities. She has no prior liver imaging for review to see if she's had a fatty liver in the past. She denies any history of alcohol abuse, drug use. She used to smoke but quit 15 years ago. Previously smoked 0.5 PPD. She previously would have 1-2 drinks monthly. She states her brother is an alcoholic and she thinks that he has cirrhosis. She states her granddaughter when she was 26 had some pancreatic cancer and she had to undergo surgery for that. She has not had any form of decompensation including encephalopathy, GI bleeding, ascites, LE edema, juandice. Lives at home with her , couple cats, dogs, and grandson. Used to work at [employer] for a longtime then [employer] for 6 years but she is now retired. Quit working last year. After initial visit she had a complete serological work up done which was all negative so cause of cirrhosis felt to be due to MAHAJAN. She herself is doing well and feels great with no new issues or complaints. had a TAVR recently and did well without any issues. States she has been exercising. Bought a stand up recumbent bike doing 1-2 miles daily. Decompensations: Varices: no Ascites: no SBP: no HRS: no HE: no HCC: no Screening: EGD: 10/2022- no varices Colonoscopy: 2020- normal. History of polyps. Repeat in 5 years. Liver imagin05/2023- no liver lesions Review of systems: Positives in HPI. Negative for: Denies headache, lightheadedness, chest pain, cough, SOB, fever, chills, nausea, vomiting, heart burn, bloating, decreased appetite, early satiety, abdominal pain, diarrhea, fecal incontinence, constipation, rectal bleeding, weight loss, dysuria, frequency, incontinence, joint pain, back pain, weakness, fatigue, anxiety, depressed mood, difficulty sleeping. The remaining ROS reviewed and are negative. Past Medical History: Diagnosis Date Allergic rhinitis [...] nerve, back , leg. Thrombocytopenia (HCC) 05/24/2022 Past Surgical History: Procedure Laterality Date BREAST LESION,OTHER,EXCISION Left 10/25/2017 10/25/2017 EXCISION OF CYST OR TUMOR BREAST performed by Ingrid Hager MD at [facility] dx left nipple mass, excision fibrotic stroma and dilated ducts with sanguinous fluid and focal thick secretions . Tiny intraductal papillomas, less than 1 mm each COLONOSCOPY, DIAGNOSTIC (RECTUM) 08/15/2006 repeat 5-7 yrs COLONOSCOPY, DIAGNOSTIC (RECTUM) 09/07/2016 adenomatous polyps, diverticulosis, repeat 3 yrs/COLONOSCOPY FLEXIBLE PROXIMAL DIAGNOSTIC performedby James Vallejo MD at ENDOSCOPY [facility] COLONOSCOPY, DIAGNOSTIC (RECTUM) 07/07/2020 diverticulosis, repeat 5 yrs / COLONOSCOPY FLEXIBLE PROXIMAL DIAGNOSTIC performed by James Vallejo MD at ENDOSCOPY [facility] EGD, FLEXIBLE, DIAGNOSTIC 10/24/2022 small hiatal hernia/nodule esophagus/portal hypertensive gastropathy/duodenal erosions/biopsies normal/repeat 2 years/ESOPHAGOGASTRODUODENOSCOPY (EGD), FLEXIBLE, TRANSORAL, DIAGNOSTIC performed by Nithya Rodriguez DO at [facility]OSCOPY [facility] [place] XCAPSL CTRC RMVL INSJ IO LENS PROSTH W/O ECP Bilateral 2010 [place] REMOVE GALLBLADDER 06/1990 REMOVE TENDON SHEATH LESION, HAND REMOVE TONSILS & ADENOIDS, UNDER 12 1950 age 4 TOTAL ABD HYSTERECTOMY W/WO REMOVAL OF TUBE(S) 1976 VAGINAL DELIVERY ONLY x 2 Family History Problem Relation Name Age of Onset Heart Disorder Mother age 83- [place] Endocrine Disorder Mother thyroid Cancer Father esophageal cancer- age 66 Diabetes Father Hypertension Father Other (Other) Sister 8 mos old, PNA Musculo-skeletal Disorder Sister she is 15y older. osteoporosis. lives in [place] Hypertension Sister in [place]. Cancer Brother 1 prostate cancer/ + "colitis" Lung cancer Brother 1 86 Hypertension Brother 2 Jose D Cirrhosis Brother 2 Hypertension Brother 3 outside Jose D Stroke Brother 3 Other (Other) Son oldest Deg. disc. disease, neck sx Musculo-skeletal Disorder Son youngest back sx, herneated disc Gastro-intestinal disorder Son youngest diverticulitis Breast Cancer Niece in her 30s. Current Outpatient Medications Medication Sig Dispense Refill MULTIVITAMINS PO TABS 1 TABLET DAILY vitamin c (ASCORBIC ACID) 500 MG Tablet Take 2 Tablets by mouth in the morning. Levothyroxine Sodium 100 MCG Oral Tablet (Levoxyl) Take 1 Tablet by mouth in the morning. (at least30 min prior to breakfast or other meds). 90 Tablet 1 Simvastatin 20 MG Oral Tablet (Zocor) TAKE 1 TABLET EVERY EVENING 90 Tablet 3 Triamcinolone Acetonide 0.1 % External Cream (Aristocort) APPLY TO RIGHT LEG TWICE DAILY NEEDED FOR FLARES 80 g 11 Aspirin 81 MG Oral Tablet Delayed Release (Aspirin 81) Take 1 Tablet by mouth in the morning. Lansoprazole 30 MG Oral Capsule Delayed Release (Prevacid) Take 1 Capsule by mouth in the morning. 30 minutes before the first meal of the day.. (Patient not taking: Reported on 11/02/2023) 90 Capsule3 No current facility-administered medications for this visit. Review of patient's allergies indicates: Allergen Reactions [...] like she was going to pass out Physical Exam: vitals: BP 128/68 | Pulse 64 | Temp 36.7 C (98.1 F) | Wt 79.4 kg (175 lb) | BMI 31.00 kg/m | BSA 1.88 m GENERAL: Well developed and well nourished in no acute distress. No notable sarcopenia. SKIN: No rashes, ulcers, jaundice or spider angiomata. HEENT: Normocephalic, sclera anicteric NECK: Supple LUNGS: Clear to auscultation bilaterally, no respiratory distress or accessory muscles used. HEART: Regular rate & rhythm, no murmurs, rubs, or gallops present ABDOMEN: Normal bowel sounds, soft and nontender, no masses or hepatosplenomegaly. No appreciable ascites or fluid wave. EXTREMITIES: No palmar erythema, no lower extremity edema. NEURO: No lateralizing findings. Sensory/Motor grossly normal. No asterixis present on exam. Recent Labs: Reviewed MELD 3.0: 14 at 01/09/2023 8:51 AM Calculated from: Serum Creatinine: 0.7 mg/dL (Using min of 1 mg/dL) at 01/09/2023 8:51 AM Serum Sodium: 141 mmol/L (Using max of 137 mmol/L) at 01/09/2023 8:51 AM Total Bilirubin: 2.2 mg/dL at 01/09/2023 8:51 AM Serum Albumin: 3.7 g/dL (Using max of 3.5 g/dL) at 01/09/2023 8:51 AM INR(ratio): 1.4 at 01/09/2023 8:51 AM Age at listing (hypothetical): 77 years Sex: Female at 01/09/2023 8:51 AM Triglycerides <=174 mg/dL 59 Comment: Triglyceride Reference Ranges (mg/dL): <150 Acceptable 150-174 Borderline high 175-499 High >=500 Very high Cholesterol <200 mg/dL 99 Comment: Total Cholesterol Reference Ranges (mg/dL): <200 Desirable 200-239 Borderline high >=240 High HDL Cholesterol >49 mg/dL 62 Comment: HDL Cholesterol Reference Ranges (mg/dL): >=60 High (Desirable) <50 Low (Undesirable) For Females <40 Low (Undesirable) For Males Non-HDL Cholesterol <=159 mg/dL 37 Comment: Non-HDL Cholesterol Reference Range (mg/dL): <100 Target level for high risk ASCVD patient <130 Optimal for general population 130-159 Near optimal for general population 160-189 Borderline High 190-219 High >=220 Very High LDL Cholesterol <=129 mg/dL 25 Component Ref Range & Units 9 mo ago WBC 4.00 - 10.80 K/uL 3.56 Low RBC 3.85 - 5.15 M/uL 4.06 HGB 12.0 - 15.3 g/dL 12.8 HCT 36.0 - 45.2 % 38.2 MCV 81.5 - 97.5 fL 94.1 MCH 27.0 - 34.0 pg 31.5 MCHC 32.0 - 36.0 g/dL 33.5 RDW 11.5 - 15.5 % 13.5 PLT 140 - 400 K/uL 68 Low MPV 6.6 - 11.1 fL 10.6 Recent Imaging Studies: Reviewed Abdominal US 11/14/2022: IMPRESSION Hepatic cirrhosis without sonographic mass. Redemonstrated perihepatic varices or collaterals. Abdominal US 06/07/2022: IMPRESSION: 1. echogenic nodular liver. Likely cirrhotic. 2. Prior cholecystectomy. 3. Probable varicosities anterior to the left lobe of the liver. Recent Endoscopic Procedures: Reviewed Abdominal US 05/23/2023: IMPRESSION 1. Cirrhosis with [...] evidence of gastric varices. - Duodenal erosions. Colonoscopy 06/2020: Impression: - Diverticulosis in the sigmoid colon. - The examination was otherwise normal on direct and retroflexion views. - No specimens collected. Colonoscopy 08/2016: Impression: - The examined portion of the ileum was normal. - One diminutive polyp in the ascending colon, removed with a jumbo cold forceps. Resected and retrieved. - Two small polyps at 55 cm proximal to the anus, removed with a cold snare. Resected and retrieved. - One 4 mm polyp at 40 cm proximal to the anus, removed with a cold snare. Resected and retrieved. - Diverticulosis in the sigmoid colon. Assessment and plan: Dayna Lopez is a 78 year old F with PMH notable for HTN, HLD, hypothyroidism, OA, rosacea. She presents today for follow up of compensated MASH cirrhosis. -Liver disease severity. Will get MELD labs today. Last MELD-Na score was 14. Complete serological work up negative for other causes of liver disease. -Variceal screening: EGD 10/2022 without any varices. Repeat in 2 years or sooner in event of decompensation. -Fluid status: based on today's physical exam, she has no ascites or LE edema. She is not on any diuretics. I recommend a low salt diet no more than 2 grams daily. -Hepatic encephalopathy: based on today's examination, the pt. does not have asterixis. No history of HE. -Renal function: pt.'s most recent SCr was 0.7. We will get another BMP and monitor her renal function periodically. -HCC screening. Pt.'s last liver imaging study was done 05/2023 without any liver lesions. Pt will need HCC screening every 6 months with imaging in conjunction with an AFP. Repeat imaging in 11/2023 ALREADY SCHEDULED. -Avoid liver toxins including over the counter herbal supplements. May take Acetaminophen up to 2 grams a day. Avoid NSAIDS due to increased risk of GI bleeding and fluid retention. Avoid all alcohol. Patient encouraged to avoid benzodiazepines and opiate pain medications due to risk of precipitating HE. -Vaccination: Labs show she has immunity against hepatitis A but not B so recommend vaccination series through PCP. She states she is getting the vaccination series for B and has one more left. -Colorectal cancer screening: last colonoscopy in 2020. Repeat due in 5 years. She has a history ofpolyps. -Weight management advices were given. Elements of metabolic syndrome should be better controlled, which include better management of diabetes and hypertension. I counseled about nutrition with emphasis on high protein, low fat, and low carbohydrate diet and encouraged to exercise to remain physically active to achieve weight loss, improve insulin sensitivity/decrease insulin resistance. -Follow up in 6 months Nithya Rodriguez DO Gastroenterology and Hepatology I spent a total of 35 minutes on the date of service in review of patient's record, and previously obtained information in person and appropriate medical visit, discussion and education of plan, withpatient and/or caregiver, placing orders for tests/referral/procedures as medically necessary and documentation of pertinent clinical information in patient's medical records for their visit today. documented in this encounter Nursing Notes * Carrie Quarles CMA - 11/02/2023 8:59 AM EDT Chief Complaint Patient presents with Follow Up Pt here to f/u for cirrhosis/MAHAJAN. Pt states she is doing well. No new complaints. documented in this encounter Plan of Treatment Upcoming Encounters Date Type Department Care Team (Late st Contact Info) Description 11/02/2023 9:50 AM EDT Laboratory Laboratory, [address] [place] [phone] Maryjane Lacy [address] [place] [address] [place] [address] Arrived 11/06/2023 8:00 AM EDT [facility] [address] [facility] [place] [phone] Regino Nurse Annual Wellness [facility] [place] [place] [id number] 11/23/2023 9:15 AM EDT [facility] [address] [facility] [place] [id number] 05/13/2024 8:20 AM EDT Office Visit Hepatology, [facility] [address] [place] [address] Nithya Rodriguez DO [address] [place] [id number] 05/29/2024 8:20 AM EDT Office Visit Family Practice [facility] [address] [place] [address] Jordan Sierra MD [address] [place] [address] Scheduled Orders Name Type Priority Associated Diagnoses Orde r Schedule HEPATIC FUNCTION PANEL Lab Routine Metabolic dysfunction-associated steatohepatitis (MASH) Cirrhosis of liver without ascites, unspecified hepatic cirrhosis type (HCC) Expected: 11/02/2023, Expires: 11/01/2024 PT INR Lab Routine Metabolic dysfunction-associated steatohepatitis (MASH) Cirrhosis of liver without ascites, unspecified hepatic cirrhosis type (HCC) Expected: 11/02/2023, Expires: 11/01/2024 CBC WITH WBC DIFFERENTIAL Lab Routine Metabolic dysfunction-associated steatohepatitis (MASH) Cirrhosis of liver without ascites, unspecified hepatic cirrhosis type (HCC) Expected: 11/02/2023, Expires: 11/01/2024 BASIC METABOLIC PANEL Lab Routine Metabolic dysfunction-associated steatohepatitis (MASH) Cirrhosis of liver without ascites, unspecified hepatic cirrhosis type (HCC) Expected: 11/02/2023, Expires: 11/01/2024 ALPHA-FETOPROTEIN TUMOR MARKER Lab Routine Metabolic dysfunction-associated steatohepatitis (MASH) Cirrhosis of liver without ascites, unspecified hepatic cirrhosis type (HCC) Expected: 11/02/2023, Expires: 11/01/2024 Scheduled Procedures Name Priority Associated Diagnoses Date/Ti me ESOPHAGOGASTRODUODENOSCOPY ( EGD), FLEXIBLE, TRANSORAL, DIAGNOSTIC Recall Portal hypertensive gastropathy (HCC) Health Maintenance Due Date Last Done Comments DTap/Tdap Vaccines (1 - Tdap) 10/24/2009 10/23/2009 Adult Wellness Visit 11/02/2023 11/01/2022 Depression Screening 11/02/2023 11/01/2022 GFR 01/10/2024 01/09/2023, 06/14, 05/23/2022, Additional history exists TSH 05/24/2024 05/25/2023, 05/14, 10/15/2021, Additional history exists Mammogram 06/19/2024 06/20/2023, 02/2023, 06/07/2022, Additional history exists Albumin/Creatinine Ratio 05/23/2025 05/23/2022 [...] as of this encounter Visit Diagnoses Diagnosis Metabolic dysfunction-associated steatohepatitis (MASH)- Primary Cirrhosis of liver without ascites, unspecified hepatic cirrhosis type (HCC) documented in this encounter Care Teams Foundation Coordinator Relationship Specialty Start Date End Date Jordan Sierra MD [address] [place] [id number] PCP - General Family Medicine 03/18/16 documented as of this encounter
--- OUTSIDE RECORDS SUMMARY | 2024-04-07 17:32 | External Medical Summary ---
Author Name Unknown Address Unknown Organization K01:[facility] - [address] [facility] [place] [address] Laboratory Report Ordering Provider Test Date Status DWIGHT DEGROOT 11/02/2023 09:49:42 Final Observation Date Value Abnormality Reference (Units ) Status Alpha-Fetoprotein 11/02/2023 09:49:42 6.4 0. 0-8.3 (ng/mL) Final Performing Location LAB[facility]ATORY [facility] - [address] [facility] [address]
--- OUTSIDE RECORDS SUMMARY | 2024-04-07 17:32 | External Medical Summary | Summary of Care ---
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 Name Role Phone Jordan Sierra MD Primary Care Provider + Reason for Visit * Reason Onset Date Comments Adult Annual Wellness Visit, Subsequent Visit Encounter Details Date Type Department Care Team (Late st Contact Info) Description 11/06/2023 8:00 AM EDT Nurse Only Ancillary [facility] [address] [facility] [place] [id number] [facility] Wellness [facility] [address] [facility] [id number] Adult Annual Wellness Visit, Subsequent Visit Allergies Active Allergy Reactions Criticality Noted Date [...] as of this encounter (statuses as of 11/06/2023) Medications Medication Sig Dispensed Refills Start Date End Date Status MULTIVITAMINS PO TABS 1 TABLET DAILY 05/24/2012 Active vitamin c (ASCORBIC ACID) 500 MG Tablet Take 2 Tablets by mouth in the morning. Active Levothyroxine Sodium 100 MCG Oral Tablet (Levoxyl)Indicati ons:Hypothyroidis m, unspecified type Take 1 Tablet by mouth in the morning. (at least 30 min prior to breakfast or other meds). 90 Tablet 1 06/18/2023 Active Simvastatin 20 MG Oral Tablet (Zocor)Indication s:Dyslipidemia, goal LDL below 100,Transient cerebral ischemia, unspecified type TAKE 1 TABLET EVERY EVENING 90 Tablet 3 06/23/2023 Active Triamcinolone Acetonide 0.1 % External Cream (Aristocort) APPLY TO RIGHT LEG TWICE DAILY NEEDED FOR FLARES 80 g 11 10/29/2023 Active Aspirin 81 MG Oral Tablet Delayed Release (Aspirin 81) Take 1 Tablet by mouth in the morning. Active Lansoprazole 30 MG Oral Capsule Delayed Release (Prevacid)Indicat ions:Esophagitis Take 1 Capsule by mouth in the morning. 30 minutes before the first meal of the day.. 90 Capsule 3 06/20/2023 11/06/2023 Discontinue d(Patient preference/ discontinua tion) documented as of this encounter (statuses as of 11/06/2023) Active Problems Problem Noted Date Diagnosed Date [...] as of this encounter (statuses as of 11/06/2023) Resolved Problems Problem Noted Date Diagnosed Date Resolved Date Viral URI 10/22/2020 05/23/2022 Bloody discharge from left nipple 09/15/2017 04/26/2018 Dyslipidemia, goal to be determined 01/22/2009 10/23/2009 Overview: Per Lipid Taxonomy. Allergic rhinitis 06/22/2000 01/16/2018 MENOPAUSE - MATT - 1978 11/27/199705/25 Mixed dyslipidemia 11/27/1997 9 Overview: Per Lipid Taxonomy. documented as of this encounter (statuses as of 11/06/2023) Immunizations Name Administration Dates Next Due Hepatitis [...] Sign Reading Time Taken Comments Blood Pressure 140/56 11/06/2023 8:05 AM EDT Pulse 74 11/06/2023 8:05 AM EDT Temperature 36.3 C (97.3 F) 11/06/2023 8:05 AM ED T Respiratory Rate - - Oxygen Saturation - - Inhaled Oxygen Concentration - - Weight 79.1 kg (174 lb 6.4 oz) 11/06/2023 8:05 A M EDT Height 160 cm (5' 3") 11/06/2023 8:05 AM EDT Body Mass Index 30.89 11/06/2023 8:05 AM EDT documented in this encounter Patient Instructions * Patient Instructions* Yessica Moreira RN - 11/06/2023 8:03 AM EDT Hi Ms. Lopez, As your primary care physician, I know that regular visits with my patients who have several chronic conditions can go a long way in helping you stay healthy. Many times, the clinic team and I are in touch with you and/or other care team members between office visits to adjust medications, discuss any changes in your health, and review our care plan to make sure it is still meeting your needs. I am dedicated to helping you take a more active role in your overall care. It is important that there are resources available to you, so I created a personalized plan of care with a Health Calendar for you, which is included on the next page of this letter. Below is a list that summarizes your electronic health record: Health Maintenance Due: Health Maintenance Due Topic Date Due DTap/Tdap Vaccines (1 - Tdap) 10/24/2009 Depression Screening 11/02/2023 Adult Wellness Visit 11/02/2023 Current Medication List: (as of Visit date not found (in office), Visit date not found (telemedicine) ) Current Outpatient Medications Medication Sig Dispense Refill MULTIVITAMINS PO TABS 1 TABLET DAILY vitamin c (ASCORBIC ACID) 500 MG Tablet Take 2 Tablets by mouth in the morning. Levothyroxine Sodium 100 MCG Oral Tablet (Levoxyl) Take 1 Tablet by mouth in the morning. (at least 30 min prior to breakfast or other meds). 90 Tablet 1 Lansoprazole 30 MG Oral Capsule Delayed Release (Prevacid) Take 1 Capsule by mouth in the morning. 30 minutes before the first meal of the day.. (Patient not taking: Reported on 11/02/2023) 90 Capsule 3 Simvastatin 20 MG Oral Tablet (Zocor) TAKE 1 TABLET EVERY EVENING 90 Tablet 3 Triamcinolone Acetonide 0.1 % External Cream (Aristocort) APPLY TO RIGHT LEG TWICE DAILY NEEDED FOR FLARES 80 g 11 Aspirin 81 MG Oral Tablet Delayed Release (Aspirin 81) Take 1 Tablet by mouth in the morning. No current facility-administered medications for this visit. Current List of Allergies: (as of Visit date not found (in office), Visit date not found (telemedicine) ) Review of patient's allergies indicates: Allergen Reactions [...] Conj Vacc] Chills/rigors, Fever, Nausea/vomiting and Other (Pleasecomment) Very lighted headed and felt like she was going to pass out Most Recent Lab Results: Results for orders placed or performed in visit on 11/02/23 TSH WITH FREE T4 IF INDICATED Result Value Ref Range TSH 0.22 (L) 0.27 - 4.20 uIU/mL HEPATIC FUNCTION PANEL Result Value Ref Range Albumin 3.8 3.8 - 5.0 g/dL AST 38 (H) 10 - 35 U/L Alkaline Phosphatase 112 35 - 130 U/L ALT 26 10 - 35 U/L Bilirubin, Total 2.9 (H) <=1.2 mg/dL Bilirubin, Direct 0.5 (H) 0.0 - 0.3 mg/dL Protein 6.8 6.0 - 8.3 g/dL PT INR Result Value Ref Range Prothrombin Time 18.1 (H) 11.6 - 15.2 seconds INR 1.5 (H) 0.8 - 1.2 BASIC METABOLIC PANEL Result Value Ref Range BUN 18 6 - 20 mg/dL CREATININE 0.8 0.5 - 1.0 mg/dL EGFR 81 >=60 mL/min SODIUM 143 135 - 146 mmol/L POTASSIUM 4.1 3.5 - 5.1 mmol/L CHLORIDE 108 (H) 98 - 107 mmol/L CO2 28 22 - 32 mmol/L ANION GAP 7 7 - 15 mmol/L GLUCOSE 87 70 - 120 mg/dL CALCIUM 9.3 8.4 - 10.2 mg/dL ALPHA-FETOPROTEIN TUMOR MARKER Result Value Ref Range Alpha-Fetoprotein Tumor Marker 6.4 0.0 - 8.3 ng/mL CBC Result Value Ref Range WBC 3.58 (L) 4.00 - 10.80 K/uL RBC 4.10 3.85 - 5.15 M/uL HGB 13.2 12.0 - 15.3 g/dL HCT 38.4 36.0 - 45.2 % MCV 93.7 81.5 - 97.5 fL MCH 32.2 27.0 - 34.0 pg MCHC 34.4 32.0 - 36.0 g/dL RDW 13.7 11.5 - 15.5 % PLT 69 (L) 140 - 400 K/uL MPV 10.9 6.6 - 11.1 fL DIFFERENTIAL, AUTOMATED Result Value Ref Range WBC 3.58 (L) 4.00 - 10.80 K/uL Neutrophils % 53.4 40.0 - 75.0 % Lymphocytes % 33.4 18.0 - 42.0 % Monocytes % 9.5 1.0 - 11.0 % Eosinophils % 3.4 0.0 - 6.0 % Basophils % 0.3 0.0 - 2.0 % Absolute Neutrophils 2.01 1.80 - 7.70 K/uL Absolute Lymphocytes 1.26 1.00 - 4.80 K/ul Absolute Monocytes 0.36 0.00 - 1.10 K/uL Absolute Eosinophils 0.13 0.00 - 0.70 K/uL Absolute Basophils 0.01 0.00 - 0.20 K/uL DIFFERENTIAL, TECHNOLOGIST REVIEW Result Value Ref Range nRBCs T4, FREE Result Value Ref Range T4, Free 1.7 0.9 - 1.7 ng/dL Sincerely, Jordan Sierra MD 11/06/2023 [facility] (as of Visit date not found (in office), Visit date not found (telemedicine) ) Care needs Care needs Last completed Due next Diphtheria, tetanus & pertussis vaccines (1 - Tdap) 10/23/2009 10/24/2009 Adult Wellness Visit 11/01/2022 11/02/2023 Mammogram 06/20/2023 06/19/2024 Kidney Function Test 11/02/2023 11/01/2024 Yearly thyroid level check 11/02/2023 11/01/2024 Urine albumin/creatinine test 05/23/2022 05/23/2025 Bone Density 06/08/2020 06/08/2025 Colonoscopy 07/07/2020 07/07/2025 As you look over the recommended services, be sure to check with your insurance company to determine what's covered. [employer] is a great tool that helps you review your medical record online, including test results, doctor notes and your health summary. You can also schedule appointments with me and other members of your care team, request prescription refills and ask for advice related to your medical conditions at [employer]. documented in this encounter Progress Notes * Yessica Moreira RN - 11/06/2023 8:03 AM EDT Adult Annual Wellness Visit: Dayna Lopez is a 78 year old female who presents for an Adult Annual Wellness Visit. Depression Screening: Did the patient complete the screening questionnaire for Depression? Yes Is the patient's total score for Depression 15 or greater? No, no further intervention needed, unless requested by patient. Did the patient answer positively to the suicide question? No, no further intervention needed, unless requested by patient. In general, compared to other people your age, what would you say that your health is? Very Good Ht Readings from Last 1 Encounters: 11/06/23 1.6 m (5' 3") Wt Readings from Last 1 Encounters: 11/06/23 79.1 kg (174 lb 6.4 oz) Body Mass Index: BMI Greater than 30 Body mass index is 30.89 kg/m. BP Readings from Last 1 Encounters: 11/06/23 140/56 Medical/Surgical/Family History Reviewed: Yes Past Medical History: Diagnosis Date Allergic rhinitis [...] performed by Ingrid Hager MD at OR [facility] dx left nipple mass, excision fibrotic stroma and dilated ducts with sanguinous fluid and focal thick secretions . Tiny intraductal papillomas, less than 1 mm each COLONOSCOPY, DIAGNOSTIC (RECTUM) 08/15/2006 repeat 5-7 yrs COLONOSCOPY, DIAGNOSTIC (RECTUM) 09/07/2016 adenomatous polyps, diverticulosis, repeat 3 yrs/COLONOSCOPY FLEXIBLE PROXIMAL DIAGNOSTIC performedby James Vallejo MD at ENDOSCOPY [facility] COLONOSCOPY, DIAGNOSTIC (RECTUM) 07/07/2020 diverticulosis, repeat 5 yrs / COLONOSCOPY FLEXIBLE PROXIMAL DIAGNOSTIC performed by James Vallejo MD at ENDOSCOPY [facility] EGD, FLEXIBLE, DIAGNOSTIC 10/24/2022 small hiatal hernia/nodule esophagus/portal hypertensive gastropathy/duodenal erosions/biopsies normal/repeat 2 years/ESOPHAGOGASTRODUODENOSCOPY (EGD), FLEXIBLE, TRANSORAL, DIAGNOSTIC performed by Nithya Rodriguez DO at ENDOSCOPY [facility] [place] XCAPSL CTRC RMVL INSJ IO LENS PROSTH W/O ECP Bilateral 2010 [place] REMOVE GALLBLADDER 06/1990 REMOVE TENDON SHEATH LESION, HAND REMOVE TONSILS & ADENOIDS, UNDER 12 1950 age 4 TOTAL ABD HYSTERECTOMY W/WO REMOVAL OF TUBE(S) 1976 VAGINAL DELIVERY ONLY x 2 Family History Problem Relation Name Age of Onset Heart Disorder Mother age 83- [place] Endocrine Disorder Mother thyroid Cancer Father esophageal cancer- age 66 Diabetes Father Hypertension Father Other (Other) Sister 8 mos old, PNA Musculo-skeletal Disorder Sister she is 15y older. osteoporosis. lives in [place] Hypertension Sister in [place]. Cancer Brother 1 prostate cancer/ + "colitis" Lung cancer Brother 1 86 Hypertension Brother 2 Jose D Cirrhosis Brother 2 Hypertension Brother 3 outside [place] Stroke Brother 3 Other (Other) Son oldest Deg. disc. disease, neck sx Musculo-skeletal Disorder Son youngest back sx, herneated disc Gastro-intestinal disorder Son youngest diverticulitis Breast Cancer Niece in her 30s. Has patient ever had cancer? No Social History Tobacco Use Smoking status: Former Current packs/day: 0.00 Average packs/day: 0.5 packs/day for 15.0 years (7.5 ttl pk-yrs) Types: Cigarettes Start date: 08/14/1991 Quit date: 08/13/2006 Years since quittin.2 Smokeless tobacco: Never Substance Use Topics Alcohol use: No Vaping/E-Cigarette Use Vaping/E-Cigarette Use Never User Vaping/E-Cigarette Substances Vaping/E-Cigarette Devices Tobacco/Alcohol screening completed today? Yes Hospital Care: Admissions (within the last year): Not Applicable ER within 30 days: No Does the patient have an Advance Directives/Living Will? No. Does the patient want information? No.Patient declined information. Pt has the information at home and has discussed it with her granddaughter. She has not put anything in writing yet Last Physical Exam: Last physical exam: 05/25/2023 Does patient see primary provider regularly? Yes Does patient see other providers? Yes, Specialist Patient Care Team updated? Yes Review of patient's allergies indicates: Allergen Reactions [...] like she was going to pass out Immunization History Administered Date(s) Administered Hepatitis B, 20+ yrs 07/15/2022, 08/25/2022, 02/22/2023 Pneumococcal Conjugate Vacc, 13 Valent (Prevnar) 03/18/2016 TD, Preservative Free 10/23/2009 Current Outpatient Medications Medication Sig Dispense Refill [...] 1 Tablet by mouth in the morning. No current facility-administered medications for this visit. 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 Yes Patient takes medications as prescribed? Yes Patient manages own medications: Yes Patient uses a pill box? No Dental Exam: Yes: Every 6 Months and this was the first time she had gone in 10 years Eye Screening: Yes: Every 6 months Are you having trouble with hearing? No Do you use an assistive device to help your hearing? No Exercise Screening: daily excercise Nutrition Assessment: Eats a poorly balanced diet Pain Screening: Are you having any pain? No Sleep Screening Tool 'STOP': Do you snore? No Do you feel fatigued during the day? No Do you wake up feeling like you haven't slept? No Have you been told you stop breathing at night? No Do you gasp for air or choke while sleeping? No Have you been told you have Sleep Apnea? No Do you have high blood pressure or are on medication(s) to control high blood pressure? No SCORE: If you check YES to two or more questions, make a referral for Obstructive Sleep Apnea Patient and Caregiver Support System: Patient lives with a spouse Means of Transportation: Drives. Not a concern. Patient lives in One Story - with basement stairs: 13 with a basement Community Resources: Not Applicable Functional Status and ADL Skills: Has patient ever had an amputation? No Functional Assessment: 100- Normal, no complaints, no evidence of disease Ambulation: Patient ambulates without assistive device. Independent Dressing: Gets clothes and dresses without any assistance: Independent Able to move freely in chair or bed including turning over: Independent Repositioning (bed or chair): Not applicable Transfers: Independent Toileting: Goes to bathroom, uses toilet, arranges clothes and returns without any assistance: Independent Toileting: continent of bladder and continent of bowel Feeding: Self Bathing: Self; tub/shower Requires none assistance with ADLs. Instrumental ADL's: Shopping: Independent Housekeeping: Independent Handling Finances: Independent DME Vendor Name: Not Applicable Fall Risk Assessment: Can the patient demonstrate that she can stand from a sitting position? Yes Has the patient had a fall within the last 6 months? No Does the patient have a problem with her gait or balance? No Does the patient take 4 or more prescription medicines? No Does the patient use sedatives or narcotics? No Fall Risk Factors Present: Older than age 70 Mkh-Nk-oog-Go Test: Time began at 0800. Patient stood from sitting position and walked approximately 10 feet, returned and sat down. Total time for jlk-gb-oru-go test was 10 seconds. Lhb-Hi-cvf-Go Test completed? Yes Gender Specific Preventative Plan: Health Maintenance Topic Date Due DTap/Tdap Vaccines (1 - Tdap) 10/24/2009 Mammogram 06/19/2024 GFR 11/01/2024 TSH 11/01/2024 Depression Screening 11/05/2024 Adult Wellness Visit 11/05/2024 Albumin/Creatinine Ratio 05/23/2025 DXA Scan 06/08/2025 Colonoscopy 07/07/2025 Hepatitis B Vaccine Completed MENINGOCOCCAL (MENACTRA/MENVEO) Aged Out HPV (Gardasil) Vaccine Aged Out RETIRED - COLONOSCOPY-EVERY 5 YRS AGES 18-100 Discontinued Zoster Vaccines Discontinued COVID-19 Vaccine Discontinued Follow Up/ Referrals/Handouts: No further action needed Routine general medical examination at a health care facility (Primary) AWV completed today Dyslipidemia, goal LDL below 100 - Med reconciliation completed and compliance discussed. - pt to continue present medications. Lipid Panel Results: Results for orders placed or performed in visit on 08/19/15 LIPID PANEL Result Value Ref Range HOURS FASTING 12 hours Triglycerides 89 <200 mg/dL Cholesterol 129 <200 mg/dL HDL Cholesterol 56 >39 mg/dL Cholesterol-HDL Ratio 2.3 LDL Cholesterol 55 0 - 129 mg/dL Results for orders placed or performed in visit on 06/30/23 LIPID PANEL WITH DIRECT LDL IF TG IS HIGH Result Value Ref Range Triglycerides 59 <=174 mg/dL Cholesterol 99 <200 mg/dL HDL Cholesterol 62 >49 mg/dL Non-HDL Cholesterol 37 <=159 mg/dL LDL Cholesterol 25 <=129 mg/dL Essential hypertension with goal blood pressure less than 140/90 -continue following with pcp BP Readings from Last 3 Encounters: 11/06/23 140/56 11/02/23 128/68 05/25/23 118/64 Hypothyroidism Med reconciliation completed and compliance discussed. - pt to continue present medications. 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 - pt to continue present medications. GENERAL OSTEOARTHROSIS -continue to remain active Seborrheic keratosis - Med reconciliation completed and compliance discussed. - pt to continue present medications. Follow Up: Return in 1 year (on 11/05/2024) for 12 month Subsequent Adult Wellness Visit. | For: 12 month Subsequent Adult Wellness Visit | Check-out note: 12 month Subsequent Adult Wellness Visit Would patient like to schedule next AWV visit? Yes Yessica Moreira RN AD8 Dementia Screening Interview Person answering questions: patient Remember, "Yes, a change" indicates that there has been a change in the last several years caused by cognitive (thinking and memory) problems 1. Problems with judgement (eg: problems making decisions, bad financial decisions, problems with thinking). No (0) 2. Less interest in hobbies/activities. No (0) 3. Repeats the same things over and over (questions, stories, or statements). No (0) 4. Trouble learning how to use a tool, appliance, or gadget (eg: VCR, computer, microwave, remote control). No (0) 5. Forgets correct month or year. No (0) 6. Trouble handling complicated financial affairs (eg: balancing checkbook, income taxes, paying bills). No (0) 7. Trouble remembering appointments. No (0) 8. Daily problems with thinking and/or memory. No (0) TOTAL AD8: 0 - AD8 Dementia Screening Score The final score is a sum of the number items marked "Yes, A Change". 0 - 1: Normal cognition; 2 or greater: Cognitive impairments is likely to be present - further testing required documented in this encounter Miscellaneous Notes * Pt Handout (on AVS) - Yessica Moreira RN - 11/06/2023 8:29 AM EDT [address] Preventing Falls: How to Prepare and What to Do Falling is not something you want to think about. But it can make a big difference to plan ahead. If you're prepared, you'll know how to get help. And you'll be less likely to panic if you fall. Thismeans you'll be able to do what's needed to get help right away. How to prepare Have someone check on you daily, either in person or by phone. Keep a list of emergency numbers near the phone. Always have a way to call for help. Keep a cell phone with you at all times. Or talk with your healthcare provider about how to set up a home monitoring service. This involves wearing a small device around your neck or wrist. If you fall, you can press the button on the device. This alerts emergency responders. Talk with your healthcare provider about an exercise program that's right for you. Regular exercise may reduce the risk of falling and the risk for injury related to a fall. Have good lighting in your home. Don't use throw rugs, because they can raise your risk of tripping and falling. Add grab bars in the bathroom to help reduce the risk of falling. Small changes canmake your home safer. Talk with your healthcare provider about making your home safer. What to do if you fall Above all, try to stay calm: If you start to fall, try to relax your body. This will reduce the impact of the fall. After you fall, press your monitor button, or use your phone to call for help. Don't kitchen to get up. First, make sure you're not hurt. Roll onto your side, then crawl to a chair. Pull yourself up onto the chair slowly. Get checked if you struck your head, lost consciousness, were confused afterward, or have any other concerns for injury. Tell your healthcare provider that you fell. They can check you for injuries as needed, try to determine what made you fall, and help prevent you from falling again. A note to family and friends If you're with a loved one when they start to fall, don't try to stop the fall. Ease the person to the floor carefully, so neither of you gets hurt. Don't leave the person alone. And don't try to move them, especially if they may have hurt their head or neck. Check for injuries. If help is needed right away, call 911. Last Reviewed Date: 01/13/202219994198-0429 [employer]. All rights reserved. This information is not intended as a substitute for professional medical care. Always follow your healthcare professional's instructions. * Pt Handout (on AVS) - Yessica Moreira RN - 11/06/2023 8:29 AM EDT Images from the original note were not included. [id number] Exercises to Prevent Falls Certain types of exercises may help make you less likely to fall. Try the ones below or do other exercises that your healthcare provider suggests. Depending on your health, you may need to start slowly. Don't let that stop you. Even small amountsof exercise can help you. Talk with your healthcare provider before starting any exercise program. Improve balance Many types of exercise can help improve balance. Jak chi and yoga are good examples. Here's anotherone to try. You can do it anytime and almost anywhere. Stand next to a counter or solid support. Push yourself up onto your tiptoes. Hold for 5 seconds. If you start to lose your balance, hold on to the counter. Rest and repeat 5 times. Work up to holding for 20 to 30 seconds, if you can. Increase flexibility Being more flexible makes it easier for you to move around safely. Try exercises like the seatedhamstring stretch. o Sit in a chair and put one foot on a stool. o Straighten your leg and reach with both hands down either side of your leg. Reach as far down your leg as you can. o Hold for about 20 seconds. o Go back to the starting position. Then repeat 5 times. Switch legs. o o Build strength o Resistance exercises help build strength. You can do them without equipment. Or you can use weights, elastic bands, or special machines. One such exercise is called the biceps curl. You can hold a 1-pound weight or even a can of soup. Do this exercise at least 3 times a week. Strive for every day. Sit up straight in a chair. Keep your elbow close to your body and your wrist straight. Bend your arm, moving your hand up to your shoulder. Then slowly lower your arm. Repeat 5 times. Switch to the other arm. Build your staying power Aerobic exercises make your heart and lungs stronger so you can keep moving longer. Walking and swimming are 2 of the best types of exercises you can do. Using a stationary bike is great, too. Find an aerobic exercise that you enjoy. Start slowly and build up. Even 5 minutes is helpful. Aim for a goal of 30 minutes, at least 3 times a week. You don't have to do 30 minutes in 1 session. Break it up and walk a little throughout the day. Starting out safely and slowly Start easy. Slowly work up to doing more. Talk with your healthcare provider about the best exercises for you. Call senior centers or health clubs about exercise programs. If needed, have a family member watch you walk every so often to check your stability. Exercise with a friend. Choose an activity you both enjoy. Be sure to gently warm up and cool down. Drink fluids, such as water, to stay hydrated. If your provider recommended that you limit fluids, ask them how much is OK to drink while exercising. Consider jak chi or yoga to strengthen your balance. Try exercises that you can do anytime, anywhere. Here are 2 examples. Have someone with you whenyou first try these: o Practice walking by placing one foot right in front of the other. o Stand up and sit down 10 times. Repeat this throughout the day. Last Reviewed Date: 12/14/202119990453-7342 [employer]. All rights reserved. This information is not intended as a substitute for professional medical care. Always follow your healthcare professional's instructions. documented in this encounter Plan of Treatment Upcoming Encounters Date Type Department Care Team (Late st Contact Info) Description 11/23/2023 9:15 AM EDT Imaging Radiology [facility] [address] [place] [address] 05/13/2024 8:20 AM EDT Office Visit Hepatology, [facility] [address] [place] [address] Nithya Rodriguez DO [address] [place] [address] 05/29/2024 8:20 AM EDT Office Visit Family Practice [facility] [address] [place] [address] Jordan Sierra MD [address] [place] [address] 11/11/2024 8:00 AM EDT Nurse Only Ancillary [facility] [address] [place] [address] Regino, Nurse Annual Wellness [facility] [address] [place] [address] Scheduled Procedures Name Priority Associated Diagnoses Date/Ti [...] as of this encounter Visit Diagnoses Diagnosis Routine general medical examination at a health care facility- Primary Dyslipidemia, goal LDL below 100 Other and unspecified hyperlipidemia Essential hypertension with goal blood pressure less than 140/90 Hypothyroidism Unspecified hypothyroidism 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
--- OUTSIDE RECORDS SUMMARY | 2024-04-07 17:32 | External Medical Summary ---
Author Name Unknown Address Unknown Organization [id number]:[facility] [place] [address] [place] [address] Laboratory Report Ordering Provider Test Date Status LYNNE LUGO 11/02/2023 09:49:42 Final Observation Date Value Abnormality Reference (Units ) Status TSH 11/02/2023 09:49:42 0.22 Below low normal 0.2 7-4.20 (uIU/mL) Final Performing Location [facility] [place] [address] [facility] [address]
--- OUTSIDE RECORDS SUMMARY | 2024-04-07 17:32 | External Medical Summary ---
Author Name Unknown Address Unknown Organization K0G:LABORATORY [facility] [place] [facility] - [address] [place] [id number] Laboratory Report Ordering Provider Test Date Status DWIGHT DEGROOT 11/02/2023 09:49:42 Final Observation Date Value Abnormality Reference (Units ) Status Nucleated erythrocytes/100 leukocytes [Ratio] in Blood by Automated count 11/02/2023 09:49:42 Final Performing Location LABORATORY [facility] [place] 57[address] 0 - [address] [place] [id number]
--- OUTSIDE RECORDS SUMMARY | 2024-04-07 17:32 | External Medical Summary ---
Author Name Unknown Address Unknown Organization K0G:LABORATORY [facility] [place] 57[address] - [address] [place] [id number] Laboratory Report Ordering Provider Test Date Status DWIGHT DEGROOT 11/02/2023 09:49:42 Final Observation Date Value Abnormality Reference (Units ) Status BUN 11/02/2023 09:49:42 18 6-20 (mg/dL) Final Creatinine 11/02/2023 09:49:42 0.8 0.5-1.0 (mg/dL) Final Glomerular filtration rate/1.73 sq M.predicted [Volume Rate/Area] in Serum, Plasma or Blood by Creatinine-based formula (CKD-EPI) 11/02/2023 09:49:42 81 >=60 (mL/min) Final eGFR is calculated based on the CKD-EPI 2020 equation. Sodium 11/02/2023 09:49:42 143 135-146 (m mol/L) Final Potassium 11/02/2023 09:49:42 4.1 3.5-5.1 (m mol/L) Final Cl 11/02/2023 09:49:42 108 Above high normal 98 -107 (mmol/L) Final CO2 11/02/2023 09:49:42 28 22-32 (mmo l/L) Final Anion gap 11/02/2023 09:49:42 7 7-15 (mmol /L) Final Glucose 11/02/2023 09:49:42 87 70-120 (mg /dL) Final Calcium 11/02/2023 09:49:42 9.3 8.4-10.2 ( mg/dL) Final Performing Location LABORATORY [facility] [place] [facility] 0 - [address] [place] [id number]
--- OUTSIDE RECORDS SUMMARY | 2024-04-07 17:32 | External Medical Summary | Summary of Care ---
Author Name Unknown Organization [facility] Address 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..] 05/13/2024 8:20 AM EDT Office Visit Hepatology, [facility] [address] [place] [address] Nithya Rodriguez DO [address] [place] [address] 05/29/2024 8:20 AM EDT Office Visit Family Practice [facility] [address] [place] [address] Jordan Sierra MD [address] [place] [address] 11/11/2024 8:00 AM EDT Nurse Only Ancillary [facility] [address] [place] [address] [facility], Nurse Annual Wellness [facility] [address] [place] [address] Scheduled Orders Name Type Priority Associated Diagnoses [...] disease documented in this encounter Care Teams Therapist Occupational Relationship Specialty Start Date End Date Jordan Sierra MD [address] [place] [address] PCP - General Family Medicine 03/18/16 documented as of this encounter
--- OUTSIDE RECORDS SUMMARY | 2024-04-07 17:32 | External Medical Summary ---
Author Name Unknown Address Unknown Organization K0G:LABORATORY [facility] [place] [facility] - [address] [place] [id number] Laboratory Report Ordering Provider Test Date Status DWIGHT DEGROOT 11/02/2023 09:49:42 Final Observation Date Value Abnormality Reference (Units ) Status WBC, Total 11/02/2023 09:49:42 3.58 Below low normal 4. 00-10.80 (K/uL) Final RBC 11/02/2023 09:49:42 4.10 3.85-5.15 (M/uL) Final Hemoglobin 11/02/2023 09:49:42 13.2 12.0-15.3 (g/dL) Final HCT 11/02/2023 09:49:42 38.4 36.0-45.2 (%) Final MCV 11/02/2023 09:49:42 93.7 81.5-97.5 (fL) Final MCH 11/02/2023 09:49:42 32.2 27.0-34.0 (pg) Final MCHC 11/02/2023 09:49:42 34.4 32.0-36.0 (g/dL) Final RDW 11/02/2023 09:49:42 13.7 11.5-15.5 (%) Final Platelets 11/02/2023 09:49:42 69 Below low normal 140 -400 (K/uL) Final Results rechecked.
null MPV 11/02/2023 09:49:42 10.9 6.6-11.1 ( fL) Final Performing Location LABORATORY [facility] [place] [address] 0 - [address] [place] [id number]
--- OUTSIDE RECORDS SUMMARY | 2024-04-07 17:32 | External Medical Summary | Summary of Care ---
Author Name Unknown Organization [facility] Address [address] [facility] [address] Phone [phone] Care Team Providers Care Base Cloth Inspector Name Role Phone Jordan Batista MD Primary Care Provider + Reason for Visit * Reason Comments eRx-Medication Refill Encounter Details Date Type Department Care Team (Late st Contact Info) Description 10/28/2023 Refill Family Practice [facility] [address] [place] [phone] Jordan Batista MD [address] [place] [...] as of this encounter (statuses as of 10/29/2023) Medications Medication Sig Dispensed Refills Start Date End Date Status MULTIVITAMINS PO TABS 1 TABLET DAILY 05/24/2012 Active vitamin c (ASCORBIC ACID) 500 MG Tablet Take 2 Tablets by mouth in the morning. Active Levothyroxine Sodium 100 MCG Oral Tablet (Levoxyl)Indications :Hypothyroidism, unspecified type Take 1 Tablet by mouth in the morning. (at least 30 min prior to breakfast or other meds). 90 Tablet 1 06/18/2023 Active Lansoprazole 30 MG Oral Capsule Delayed Release (Prevacid)Indication s:Esophagitis Take 1 Capsule by mouth in the morning. 30 minutes before the first meal of the day.. 90 Capsule 3 06/20/2023 Active Simvastatin 20 MG Oral Tablet (Zocor)Indications:D yslipidemia, goal LDL below 100,Transient cerebral ischemia, unspecified type TAKE 1 TABLET EVERY EVENING 90 Tablet 3 06/23/2023 Active Triamcinolone Acetonide 0.1 % External Cream (Aristocort) APPLY TO RIGHT LEG TWICE DAILY NEEDED FOR FLARES 80 g 11 10/29/2023 Active documented as of this encounter (statuses as of 10/29/2023) Active Problems Problem Noted Date Diagnosed Date [...] as of this encounter (statuses as of 10/29/2023) Resolved Problems Problem Noted Date Diagnosed Date Resolved Date Viral URI 10/22/2020 05/23/2022 Bloody discharge from left nipple 09/15/2017 04/26/2018 Dyslipidemia, goal to be determined 01/22/2009 10/23/2009 Overview: Per Lipid Taxonomy. Allergic rhinitis 06/22/2000 01/16/2018 MENOPAUSE - MATT - 1977 11/27/199705/25 Mixed dyslipidemia 11/27/1997 9 Overview: Per Lipid Taxonomy. documented as of this encounter (statuses as of 10/29/2023) Immunizations Name Administration Dates Next Due Hepatitis [...] No 11/01/2022 Does the household have a [facility] source of income? (Household - for ages [...] Miscellaneous Notes * Telephone Encounter - Jordan Batista MD - 10/29/2023 9:40 PM EDTSigned Prescriptions: Disp Refills Triamcinolone Acetonide 0.1 % External Cre*80 g 11 Sig: APPLY TO RIGHT LEG TWICE DAILY NEEDED FOR FLARES Authorizing Provider: JORDAN BATISTA * Telephone Encounter - Ioana Carrillo LPN - 10/28/2023 1:45 PM EDTPending Prescriptions: Disp Refills Triamcinolone Acetonide 0.1 % External Cre*80 g 11 Sig: APPLY TO RIGHT LEG TWICE DAILY NEEDED FOR FLARES * Telephone Encounter - Ioana Carrillo LPN - 10/28/2023 1:45 PM EDT Did you pend patient's preferred pharmacy and medication before forwarding?yes Pharmacy: [facility]-[address] Pending Prescriptions: Disp Refills Triamcinolone Acetonide 0.1 % External Cr*80 g 11 Sig: APPLY TO RIGHT LEG TWICE DAILY NEEDED FOR FLARES Last Visit: 05/25/2023 (in office), Visit date not found (telemedicine) Next Visit: 05/29/2024 If no future appointments scheduled, and last appointment is greater than a year ago, please schedule patient for a follow-up appointment Last date the medication was ordered: Is this request for a controlled substance?No Urine Drug Screen:No results found for this or any previous visit. Patient Phone Numbers Labs: Lab Results Component Value Date/Time CREAT 0.7 01/09/2023 08:51 AM CREAT 0.8 10/07/2019 08:32 AM POTASSIUM 4.2 01/09/2023 08:51 AM POTASSIUM 4.4 10/07/2019 08:32 AM TSH 0.04 (L) 05/25/2023 09:08 AM TSH 3.06 10/07/2019 08:32 AM LDL 25 06/30/2023 08:03 AM LDL 41 09/27/2018 11:29 AM LDL NOT APPLICABLE 09/27/2018 11:29 AM ALT 20 01/09/2023 08:51 AM ALT 35 03/01/2012 08:54 AM * Telephone Encounter - Evens Kirk - 10/28/2023 1:26 PM EDTPending Prescriptions: Disp Refills Triamcinolone Acetonide 0.1 % External Cre*80 g 11 Sig: APPLY TO RIGHT LEG TWICE DAILY NEEDED FOR FLARES documented in this encounter Plan of Treatment Upcoming Encounters Date Type Department Care Team (Late st Contact Info) Description 11/02/2023 9:00 AM EDT Office Visit [facility]atology, [facility] [address] [place] [address] Nithya Rodriguez DO [address] [place] [address] 11/06/2023 8:00 AM EDT [facility] [address] [facility] [place] [address] Regino, Nurse Annual Wellness [facility] [address] [facility] [place] [address] 11/23/2023 9:15 AM EDT [facility] [address] [place] [address] 05/29/2024 8:20 AM EDT Office Visit Family Practice [facility] [address] [place] [address] Jordan Batista MD [address] [place] [address] Scheduled Procedures Name Priority Associated Diagnoses Date/Ti [...] filedocumented as of this encounter Care Teams Base Cloth Inspector Relationship Specialty Start Date End Date Jordan Batista MD [address] [place] [address] PCP - General Family Medicine 03/18/16 documented as of this encounter
--- OUTSIDE RECORDS SUMMARY | 2024-04-07 17:32 | External Medical Summary ---
Author Name Unknown Address Unknown Organization K0G:LAB[facility]ATORY [facility] - [address] [place] [id number] Laboratory Report Ordering Provider Test Date Status DWIGHT DEGROOT 11/02/2023 09:49:42 Final Warfarin Therapy
INR: 2 .0-3.0 conventional anticoagulation
INR: 2.5- 3.5 high intensity anticoagulation Observation Date Value Abnormality Reference (Units ) Status PT 11/02/2023 09:49:42 18.1 Above high normal 11 .6-15.2 (seconds) Final INR 11/02/2023 09:49:42 1.5 Above high normal 0. 8-1.2 Final Performing Location LAB[facility]ATORY [facility] 0 - [address] [place] [id number]
--- OUTSIDE RECORDS SUMMARY | 2024-04-07 17:32 | External Medical Summary | Summary of Care ---
Author Name Unknown Organization [facility] Address [address] [facility] [place] [address] Phone [phone] Care Team Providers Care Insurance Office Supervisor Name Role Phone Jordan Sierra MD Primary Care Provider + Reason for Visit * Reason Comments Outpatient Testing Encounter Details Date Type Department Care Team (Latest Contact Info) Description 11/02/2023 9:50 AM EDT Laboratory Laboratory, [facility] [address] [facility] [place] [phone] [facility] [address] [facility] [address] Hypothyroidism, unspecified type; Metabolic dysfunction-associated steatohepatitis (MASH); Cirrhosis of liver without ascites, unspecified hepatic [...] 11/06/2023 8:00 AM EDT Nurse Only Ancillary [facility] [address] [place] [address] [place], Nurse Annual Wellness [facility] [address] [place] [address] 11/23/2023 9:15 AM EDT Imaging Radiology [facility] [address] [place] [address] 05/13/2024 8:20 AM EDT Office Visit Hepatology, [facility] [address] [place] [address] Nithya Rodriguez DO [address] [place] [address] 05/29/2024 8:20 AM EDT Office Visit Family Practice [facility] [address] [place] [address] Jordan Sierra MD [address] [place] [address] Pending Results Name Type Priority Associated Diagnoses Date /Time TSH WITH FREE T4 IF INDICATED Lab Routine Hypothyroidism, unspecified type 11/02/2023 9:49 AM EDT HEPATIC FUNCTION PANEL Lab Routine Metabolic dysfunction-associated steatohepatitis (MASH) Cirrhosis of liver without ascites, unspecified hepatic cirrhosis type (HCC) 11/02/2023 9:49 AM EDT PT INR Lab Routine Metabolic dysfunction-associated steatohepatitis (MASH) Cirrhosis of liver without ascites, unspecified hepatic cirrhosis type (HCC) 11/02/2023 9:49 AM EDT CBC WITH WBC DIFFERENTIAL Lab Routine Metabolic dysfunction-associated steatohepatitis (MASH) Cirrhosis of liver without ascites, unspecified hepatic cirrhosis type (HCC) 11/02/2023 9:49 AM EDT BASIC METABOLIC PANEL Lab Routine Metabolic dysfunction-associated steatohepatitis (MASH) Cirrhosis of liver without ascites, unspecified hepatic cirrhosis type (HCC) 11/02/2023 9:49 AM EDT ALPHA-FETOPROTEIN TUMOR MARKER Lab Routine Metabolic dysfunction-associated steatohepatitis (MASH) Cirrhosis of liver without ascites, unspecified hepatic cirrhosis type (HCC) 11/02/2023 9:49 AM EDT CBC Lab Routine Metabolic dysfunction-associated steatohepatitis (MASH) Cirrhosis of liver without ascites, unspecified hepatic cirrhosis type (HCC) 11/02/2023 9:49 AM EDT DIFFERENTIAL, AUTOMATED Lab Routine Metabolic dysfunction-associated steatohepatitis (MASH) Cirrhosis of liver without ascites, unspecified hepatic cirrhosis type (HCC) 11/02/2023 9:49 AM EDT Scheduled Procedures Name Priority Associated [...] as of this encounter Visit Diagnoses Diagnosis Hypothyroidism, unspecified type Metabolic dysfunction-associated steatohepatitis (MASH) Cirrhosis of liver without ascites, unspecified hepatic cirrhosis type (HCC) documented in this encounter Care Teams Insurance Office Supervisor Relationship Specialty Start Date End Date Jordan Sierra MD [address] [place] [phone] PCP - General Family Medicine 03/18/16 documented as of this encounter
--- OUTSIDE RECORDS SUMMARY | 2024-04-07 17:32 | External Medical Summary ---
Author Name Unknown Address Unknown Organization K01:LABORATORY [facility] - [address] [place] [address] Laboratory Report Ordering Provider Test Date Status LYNNE LUGO 11/02/2023 09:49:42 Final Observation Date Value Abnormality Reference (Units ) Status T4, Free 11/02/2023 09:49:42 1.7 0.9-1.7 (n g/dL) Final Performing Location LABORATORY [facility] - [address] [place] [address]
--- NOTE | 2024-04-07 17:56 | Emergency Department Note ---
Impression & Plan Altered mental status ED Provider Note NAME: BRANDEN QUISPE AGE: 78 SEX: F : 1945 ARRIVES VIA: Walk-In INFORMANT: Patient, the patient's family ED PROVIDER(S): Black Cain DO CHIEF COMPLAINT: Altered mental status HPI: The patient is a 78-year-old female who presented to the emergency department with family for confusion. The patient's had nausea vomiting and diarrhea over the course of the last several days. Her GI symptoms have improved but now she is not acting herself. This is been going on since yesterday. There is no reported trauma. Her significant other who she lives with has no symptoms. There is no reported dysuria or frequency. There was a fever noted by family yesterday. ROS: See above HPI for pertinent positives & negatives. A total of 10 systems reviewed and were otherwise negative. PAST MEDICAL HISTORY: See Below PAST SURGICAL HISTORY: See Below FAMILY HISTORY: See Below SOCIAL HISTORY: See Below HOME MEDICATIONS: See Below ALLERGIES: See Below VITALS: See Below PHYSICAL EXAMINATION: GENERAL: Patient is awake alert in no acute distress patient is resting comfortably and showing no signs of anxiety EYES: The conjunctivae are clear. The pupils are round and reactive. EARS, NOSE, MOUTH AND THROAT: The nose is without any evidence of any deformity. Mucous membranes are dry NECK: The neck is nontender and supple. RESPIRATORY: Normal respiratory effort is noted there is no evidence of wheezing rhonchi or rales CARDIOVASCULAR: Regular rate and rhythm noted there no murmurs rubs or gallops normal S1 normal S2. GASTROINTESTINAL: The abdomen is soft. Abdomen is nontender. MUSCULOSKELETAL/EXTREMITIES: There is no evidence of gross deformity full range of motion is noted in the hips and shoulders. SKIN: There is no obvious evidence of any rash. There are no petechiae, pallor or cyanosis noted. NEUROLOGIC: The patient is awake and alert. The patient recognizes her family members but does have difficulty with her names. The patient is oriented to person and place. Strength is symmetric. There is no facial droop. MEDICAL DECISION MAKING: The patient is a 78-year-old female who presented to the emergency department with family for evaluation of altered mental status. The patient had recent GI symptoms including diarrhea vomiting diarrhea. She is doing well from a pain point and has not had any issues recently with her family but hydrated because she was reviewed. I discussed the patient's laboratory and radiographic studies with family. She was treated with IV fluids. Ultimately the patient's condition did not improve and no obvious cause of the rectal bleeding. This reason I discussed her condition with the on-call [facility] Hospitalist. They have agreed to evaluate the patient in the emergency Triage Nursing notes reviewed. Prior medical records reviewed Vital Signs: reviewed and remarkable for elevated blood pressure. Differential diagnosis: Infection, hypoglycemia, electrolyte abnormalities, overdose, toxicologic, cardiac sources, intracerebral event, neurologic, trauma, as well as other pathologies. ER treatment provided: See below Diagnostics interpreted by me: ECG: EKG was obtained in the emergency department. My interpretation is sinus rhythm at 70 bpm. There was no ectopy. Poor R wave progression was noted. LVH was suggested by voltage criteria. This was compared to a tracing from May 24, 2011. The poor R wave progression is new compared to the previous tracing otherwise no significant changes were noted. Cardiac Monitoring: An order was placed for continuous cardiac monitoring. The monitor shows a rate of 84 bpm with sinus rhythm. Laboratory studies: As stated above and show below. Imaging studies: See below. Radiographic imaging was reviewed by myself Consultation(s): I discussed this case with Dr. Martinez who is on-call for the [facility] Hospitalist group. Past Med/Surg History Problem List (Updated 04/08/24 @ 00:15 by Black Cain DO) Altered mental status (Acute) Medical History Hypothyroid Fatty liver disease, nonalcoholic Social History Smoking Status: Former smoker Tobacco Type: Cigarettes Preferred Language: Tajik Feels Safe at Home: Yes Allergies Allergies Allergy/AdvReac Type Severity Reaction Status Date / Time Egg Derived Allergy Severe Anaphylaxis Unverified 04/07/24 18:50 Influenza Virus Vaccines Allergy Severe allergic Verified 04/07/24 18:50 to eggs...anaphylaxis pneumococcal vaccine Allergy chills,rigor,fever,nausea,vomiting,light Verified 04/07/24 18:52 [From Prevnar 13 (PF)] headed losartan AdvReac Cough and Verified 04/07/24 18:58 wheeze pravastatin [From Pravachol] AdvReac achiness Verified 04/07/24 18:52 mucinex cough for kids Allergy rash,knocked Uncoded 04/07/24 18:58 her out and stomach pains Home Meds Home Medications Medication Instructions Recorded Confirmed ascorbic acid (vitamin C) 500 mg 1,000 mg PO QAM 04/07/24 04/07/24 tablet (Vitamin C) aspirin 81 mg tablet,delayed 81 mg PO QAM 04/07/24 04/07/24 release cyanocobalamin (vitamin B-12) 500 500 mcg PO DAILY 04/07/24 04/07/24 mcg tablet (Vitamin B-12) levothyroxine 88 mcg tablet 88 mcg PO DAILYBB 04/07/24 04/07/24 multivitamin 1 tab PO DAILY 04/07/24 04/07/24 Results & Data (ED) Vital Signs Vital Signs - 24 hr 04/07/24 17:28 04/07/24 17:50 04/07/24 18:15 Temperature 36.5 C Temperature Source Temporal Artery Scan Pulse Rate 73 73 82 Pulse Rate from SpO2 Sensor Pulse Rhythm Regular Respiratory Rate 18 18 Respiratory Effort / Characteristics Non-Labored Spontaneous Respiratory Depth Normal Blood Pressure 179/70 H Blood Pressure Mean 106 Pulse Oximetry 97 98 Oxygen Delivery Method Room Air Room Air Sepsis Recent Fever Within 48 Hours No Sepsis New/Unexplained Change in Mental Status No Sepsis Action Taken by Nursing No Action Required 04/07/24 19:30 04/07/24 20:03 04/07/24 21:30 Temperature Temperature Source Pulse Rate 92 H 90 84 Pulse Rate from SpO2 Sensor 92 H Pulse Rhythm Respiratory Rate 15 15 Respiratory Effort / Characteristics Respiratory Depth Blood Pressure 168/94 H 169/73 H Blood Pressure Mean 118 105 Pulse Oximetry 96 94 Oxygen Delivery Method Room Air Sepsis Recent Fever Within 48 Hours Sepsis New/Unexplained Change in Mental Status Sepsis Action Taken by Usp Medications Current Medication List: was personally reviewed by me Laboratory Data Attestation: I reviewed the patient's lab results. 04/07/24 18:09 04/07/24 18:09 Lab Results 04/07/24 04/07/24 04/07/24 Range/Units 18:09 18:10 18:20 WBC 2.98 L (4.8-10.8) K/ul RBC 3.89 L (4.20-5.40) M/uL Hgb 12.4 (12.0-16.0) g/dl Hct 35.2 L (37.0-47.0) % MCV 90.5 (80.0-100.0) fL MCH 31.9 (25.0-34.0) pg MCHC 35.2 (32.0-36.0) g/dL RDW Std Deviation 44.9 (36.4-46.3) fL RDW Coeff of Vince 13.5 (11.5-14.5) % Plt Count 58 L (130-400) K/uL MPV 10.3 (9.4-12.4) fL Immature Gran % (Auto) 0.3 % Neut % (Auto) 44.6 % Lymph % (Auto) 41.3 % [place] % (Auto) 8.7 % Eos % (Auto) 4.4 % Baso % (Auto) 0.7 % Neut # (Auto) 1.33 L (1.40-6.50) K/uL Lymph # (Auto) 1.23 (1.20-3.40) K/uL [place] # (Auto) 0.26 (0.11-0.59) K/uL Eos # (Auto) 0.13 (0.00-0.50) K/uL Baso # (Auto) 0.02 (0.00-0.20) K/uL Immature Gran # (Auto) 0.01 (0.01-0.20) K/uL Platelet Estimate Decreased L (Normal) VBG pH 7.42 H (7.36-7.41) VBG pCO2 38 (38-50) mmHg VBG pO2 57 mmHg VBG HCO3 25 mmol/L VBG O2 Saturation 88.0 % VBG Base Excess 0.3 mEq/L Sodium 140 (136-145) mmol/L Potassium 3.5 (3.5-5.1) mmol/L Chloride 108 H (98-107) mmol/L Carbon Dioxide 28 (21-32) mmol/L Anion Gap 4 (3-11) BUN 15 (6-23) mg/dl Creatinine 0.60 (0.6-1.2) mg/dl Est Cr Clr Drug Dosing 77.6 ml/min eGFR 91.25 BUN/Creatinine Ratio 25.0 H (10-20) Glucose 102 H (70-99(Fasting)) mg/dl Calcium 9.1 (8.6-10.3) mg/dl Magnesium 1.7 (1.7-2.4) mg/dl Total Bilirubin 2.0 H (0.2-1.0) mg/dl AST 40 H (13-39) U/L ALT 24 (7-52) U/L Alkaline Phosphatase 94 (34-104) U/L Ammonia 41.0 (18-72) umol/L Total Creatine Kinase 48 (26-192) U/L Troponin I High Sens 4.1 (0-14) pg/ml Total Protein 6.3 (6.0-8.3) gm/dl Albumin 3.4 (3.4-5.0) gm/dl Globulin 2.9 (2.5-4.0) gm/dl Albumin/Globulin Ratio 1.2 (0.9-2) TSH 1.297 (0.300-4.500) uIu/ml Urine Color Urine Appearance (Clear) Urine pH (4.5-7.5) Ur Specific [place] (1.000-1.030) Urine Protein (Negative) Urine Glucose (UA) (Negative) Urine Ketones (Negative) Urine Blood (Negative) Urine Nitrite (Negative) Urine Bilirubin (Negative) Urine Urobilinogen (Negative) Ur Leukocyte Esterase (Negative) Ethyl Alcohol mg/dL < 10.0 (<10.0) mg/dl SARS-CoV-2 (PCR) NEGATIVE (Negative) Influenza Type A (PCR) Negative (Neg) Influenza Type B (PCR) Negative (Neg) RSV (RT-PCR) Negative (Neg) 04/07/24 Range/Units 19:13 WBC (4.8-10.8) K/ul RBC (4.20-5.40) M/uL Hgb (12.0-16.0) g/dl Hct (37.0-47.0) % MCV (80.0-100.0) fL MCH (25.0-34.0) pg MCHC (32.0-36.0) g/dL RDW Std Deviation (36.4-46.3) fL RDW Coeff of Vince (11.5-14.5) % Plt Count (130-400) K/uL MPV (9.4-12.4) fL Immature Gran % (Auto) % Neut % (Auto) % Lymph % (Auto) % [place] % (Auto) % Eos % (Auto) % Baso % (Auto) % Neut # (Auto) (1.40-6.50) K/uL Lymph # (Auto) (1.20-3.40) K/uL [place] # (Auto) (0.11-0.59) K/uL Eos # (Auto) (0.00-0.50) K/uL Baso # (Auto) (0.00-0.20) K/uL Immature Gran # (Auto) (0.01-0.20) K/uL Platelet Estimate (Normal) VBG pH (7.36-7.41) VBG pCO2 (38-50) mmHg VBG pO2 mmHg VBG HCO3 mmol/L VBG O2 Saturation % VBG Base Excess mEq/L Sodium (136-145) mmol/L Potassium (3.5-5.1) mmol/L Chloride (98-107) mmol/L Carbon Dioxide (21-32) mmol/L Anion Gap (3-11) BUN (6-23) mg/dl Creatinine (0.6-1.2) mg/dl Est Cr Clr Drug Dosing ml/min eGFR BUN/Creatinine Ratio (10-20) Glucose (70-99(Fasting)) mg/dl Calcium (8.6-10.3) mg/dl Magnesium (1.7-2.4) mg/dl Total Bilirubin (0.2-1.0) mg/dl AST (13-39) U/L ALT (7-52) U/L Alkaline Phosphatase (34-104) U/L Ammonia (18-72) umol/L Total Creatine Kinase (26-192) U/L Troponin I High Sens (0-14) pg/ml Total Protein (6.0-8.3) gm/dl Albumin (3.4-5.0) gm/dl Globulin (2.5-4.0) gm/dl Albumin/Globulin Ratio (0.9-2) TSH (0.300-4.500) uIu/ml Urine Color Yellow Urine Appearance Clear (Clear) Urine pH 6.0 (4.5-7.5) Ur Specific [place] 1.010 (1.000-1.030) Urine Protein Negative (Negative) Urine Glucose (UA) Negative (Negative) Urine Ketones Negative (Negative) Urine Blood Negative (Negative) Urine Nitrite Negative (Negative) Urine Bilirubin Negative (Negative) Urine Urobilinogen Positive H (Negative) Ur Leukocyte Esterase Negative (Negative) Ethyl Alcohol mg/dL (<10.0) mg/dl SARS-CoV-2 (PCR) (Negative) Influenza Type A (PCR) (Neg) Influenza Type B (PCR) (Neg) RSV (RT-PCR) (Neg) Administered Medications Discontinued Medications Hydralazine HCl (Hydralazine Hcl 20 Mg/Ml Vial) 5 mg IV NOW ONE Stop: 04/07/24 23:03 Last Admin: 04/07/24 23:44 Dose: Not Given Documented By: MARILIN Sodium Chloride (Nss) 500 mls @ 999 mls/hr IV .Q31M ONE Stop: 04/07/24 18:23 Last Infusion: 04/07/24 18:59 Dose: Infused Documented By: Admin: 04/07/24 18:21 Dose: 999 mls/hr Documented By: GULSHAN Lisinopril (Lisinopril 2.5 Mg Tab) 2.5 mg PO NOW ONE Stop: 04/07/24 20:21 Last Admin: 04/07/24 21:37 Dose: 2.5 mg Documented By: MARILIN Imaging Data Attestation: I personally reviewed and interpreted this imaging study as follows: My Impression: 1 view chest x-ray was obtained in the emergency department. My interpretation is no free air or definite infiltrate, final report below. CT the brain was obtained in the emergency department. My interpretation is no intracranial hemorrhage or mass effect, final report below. Radiologist's Impression: Chest X-Ray 04/07/24 17:53 Chest radiograph, one view History: Chest pain Comparison: None Findings: Single AP view of the chest performed. No focal consolidation or pleural effusion. No pneumothorax. The cardiomediastinal silhouette is within normal limits. Normal pulmonary vascularity. No evidence for lymphadenopathy. No visualized bony or soft tissue abnormality. Impression: Normal chest radiograph Electronically signed by Efren Youngblood 04-07-2024 6:[address] 04/07/24 17:54 CT head without contrast History: AMS Comparison: None Technique: Using multidetector thin collimation helical acquisition technique, axial, coronal and sagittal CT images from the skull base to the vertex were obtained without intravenous contrast. Dose reduction techniques were achieved by using automatic exposure control and/or adjustment of mA and/or kV according to patient size and/or use of iterative reconstruction technique. Findings: No intracranial hemorrhage, mass-effect, or midline shift. The ventricles are proportionate to the cerebral sulci. The le to white matter differentiation of the cerebral hemispheres is preserved. The basal cisterns are patent. Moderate cerebral atrophy. The visualized paranasal sinuses are clear. Mastoid air cells are clear. Impression: No acute intracranial pathology. Electronically signed by Efren Youngblood 04-07-2024 7:23 PM Discharge Plan Visit Data Chief Complaint: Confusion Stated Complaint: LIGHTHEADED, CONFUSION ED Provider: Black Cain Discharge Problem: Altered mental status Patient Disposition: Being Evaluated by Hospitalist Forms Stand Alone Forms: [facility] Prescriptions Prescriptions: No Action levothyroxine 88 mcg tablet 88 mcg PO DAILYBB multivitamin Tablet 1 tab PO DAILY cyanocobalamin (vitamin B-12) [Vitamin B-12] 500 mcg Tablet 500 mcg PO DAILY ascorbic acid (vitamin C) [Vitamin C] 500 mg Tablet 1,000 mg PO QAM aspirin [Aspirin Low-Strength] 81 mg Tablet,Delayed Release (Dr/Ec) 81 mg PO QAM Referrals Referrals: Jordan Sierra MD [Primary Care Provider] - Discharge Problem: Altered mental status Qualifiers: Altered mental status type: unspecified Qualified Code(s): R41.82 - Altered mental status, unspecified
--- NOTE | 2024-04-07 18:14 | XRay Report ---
Chest radiograph, one view History: Chest pain Comparison: None Findings: Single AP view of the chest performed. No focal consolidation or pleural effusion. No pneumothorax. The cardiomediastinal silhouette is within normal limits. Normal pulmonary vascularity. No evidence for lymphadenopathy. No visualized bony or soft tissue abnormality. Impression: Normal chest radiograph Electronically signed by Efren Youngblood 04-07-2024 6:14 PM
[2024-04-07] MEDS: SODIUM CHLORIDE 0.9% 500 ML IV ONE (18:21)
[2024-04-07 18:31] LABS: Base Excess VBG 0.3 mEq/L; HCO3 VBG 25 mmol/L; PCO2 VBG 38 mmHg (38-50); PO2 VBG 57 mmHg; pH VBG 7.42 (7.36-7.41)
[2024-04-07 18:42] LABS: Basophils # (auto) 0.02 K/uL (0.00-0.20); Basophils % (auto) 0.7 %; Eosinophils # (auto) 0.13 K/uL (0.00-0.50); Eosinophils % (auto) 4.4 %; Hematocrit (blood only) 35.2 % (37.0-47.0); Hemoglobin 12.4 g/dl (12.0-16.0); Immature Granulocytes # (auto) 0.01 K/uL (0.01-0.20); Immature Granulocytes % (auto) 0.3 %; Lymphocytes # (auto) 1.23 K/uL (1.20-3.40); Lymphocytes % (auto) 41.3 %; Mean Corpuscular Hemoglobin 31.9 pg (25.0-34.0); Mean Corpuscular Hgb Conc 35.2 g/dL (32.0-36.0); Mean Corpuscular Volume 90.5 fL (80.0-100.0); Mean Platelet Volume 10.3 fL (9.4-12.4); Monocytes # (auto) 0.26 K/uL (0.11-0.59); Monocytes % (auto) 8.7 %; Neutrophils # (auto) 1.33 K/uL (1.40-6.50); Neutrophils % (auto) 44.6 %; Platelet Count 58 K/uL (130-400); Platelet Estimate Decreased (Normal); RDW Coefficient of Variation 13.5 % (11.5-14.5); RDW Standard Deviation 44.9 fL (36.4-46.3); Red Blood Count 3.89 M/uL (4.20-5.40); White Blood Count 2.98 K/ul (4.8-10.8)
[2024-04-07 18:43] LABS: Albumin Globulin Ratio 1.2 (0.9-2); Albumin Level 3.4 gm/dl (3.4-5.0); Calcium 9.1 mg/dl (8.6-10.3); Creatinine Clr Calc Pharmacy 77.6 ml/min; Globulin 2.9 gm/dl (2.5-4.0); Magnesium 1.7 mg/dl (1.7-2.4); Potassium 3.5 mmol/L (3.5-5.1); Total Protein 6.3 gm/dl (6.0-8.3)
[2024-04-07 18:50] LABS: Troponin I High Sensitivity 4.1 pg/ml (0-14)
[2024-04-07 18:57] LABS: Influenza A virus by PCR Negative (Neg); Influenza B virus by PCR Negative (Neg); RSV by PCR Negative (Neg); SARS CoV2 RNA(COVID-19) Ceph NEGATIVE (Negative)
[2024-04-07 18:59] LABS: Thyroid Stimulating Hormone 1.297 uIu/ml (0.300-4.500)
--- NOTE | 2024-04-07 19:23 | CT Scan Report ---
CT head without contrast History: AMS Comparison: None Technique: Using multidetector thin collimation helical acquisition technique, axial, coronal and sagittal CT images from the skull base to the vertex were obtained without intravenous contrast. Dose reduction techniques were achieved by using automatic exposure control and/or adjustment of mA and/or kV according to patient size and/or use of iterative reconstruction technique. Findings: No intracranial hemorrhage, mass-effect, or midline shift. The ventricles are proportionate to the cerebral sulci. The le to white matter differentiation of the cerebral hemispheres is preserved. The basal cisterns are patent. Moderate cerebral atrophy. The visualized paranasal sinuses are clear. Mastoid air cells are clear. Impression: No acute intracranial pathology. Electronically signed by Efren Youngblood 04-07-2024 7:23 PM
[2024-04-07 19:30] LABS: Appearance Urine Clear (Clear); Bilirubin Urine Negative (Negative); Blood Urine Negative (Negative); Color Urine Yellow; Glucose Urine UA Negative (Negative); Ketones Urine Negative (Negative); Leukocyte Esterase Urine Negative (Negative); Nitrite Urine Negative (Negative); Protein Urine Negative (Negative); Urobilinogen Urine Positive (Negative)
[2024-04-07] MEDS: lisinopril 2.5 MG TAB PO ONE (21:37)
--- NOTE | 2024-04-07 23:15 | History & Physical Report ---
Date of Service April 07, 2024 Assessment & Plan (1) Altered mental status: Plan: Altered mental status Possibly from uncontrolled blood pressure in the setting of viral illness History of hypertension not on maintenance medications hyperlipidemia/statin intolerance hx TIA NAFLD cirrhosis, compensated hypothyroidism, euthyroid as of today's TSH chronic neutropenia/chronic thrombocytopenia, possibly related to liver disease past tobacco abuse OBS Admit to medical telemetry Initiate lisinopril Supportive management for viral illness PT OT eval DVT prophylaxis. SCDs re: thrombocytopenia Full code Patient's son requesting updates providers. Mr. Jordan Lopez, contact #[phone]. Text document was generated using [employer] voice recognition software. It may contain grammatical or spelling errors. Kindly contact undersigned for clarification of any documentation item in question. History of Present Illness Chief Complaint: Confusion as per family. Primary Care Provider: Jordan Sierra MD History obtained from patient, family, and records. Patient is a fair historian. Medical history significant for hypertension, hyperlipidemia, TIA, NAFLD cirrhosis, hypothyroidism, chronic neutropenia, chronic thrombocytopenia, past tobacco abuse. Few days history of nausea vomiting diarrhea symptoms without abdominal pain complaints. Not sure about sick contacts. Patient somewhat confused as per family. Mild headache symptoms as per patient. Highest SBP of 200s documented at the ER. 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 Allergies Allergy/AdvReac Type Severity Reaction Status Date / Time Egg Derived Allergy Severe Anaphylaxis Unverified 04/07/24 18:50 Influenza Virus Vaccines Allergy Severe allergic Verified 04/07/24 18:50 to eggs...anaphylaxis pneumococcal vaccine Allergy chills,rigor,fever,nausea,vomiting,light Verified 04/07/24 18:52 [From Prevnar 13 (PF)] headed losartan AdvReac Cough and Verified 04/07/24 18:58 wheeze pravastatin [From Pravachol] AdvReac achiness Verified 04/07/24 18:52 mucinex cough for kids Allergy rash,knocked Uncoded 04/07/24 18:58 her out and stomach pains Home Medications Medication Instructions Recorded Confirmed Type ascorbic acid (vitamin C) 500 mg 1,000 mg PO QAM 02/23/25 02/23/25 History tablet (Vitamin C) aspirin 81 mg tablet,delayed 81 mg PO QAM 04/07/24 04/07/24 History release cyanocobalamin (vitamin B-12) 500 500 mcg PO DAILY 04/07/24 04/07/24 History mcg tablet (Vitamin B-12) levothyroxine 88 mcg tablet 88 mcg PO DAILYBB 04/07/24 04/07/24 History multivitamin 1 tab PO DAILY 04/07/24 04/07/24 History Past Med/Surg History Problem List (Updated 04/08/24 @ 00:15 by Black Cain DO) Altered mental status (Acute) Medical History Hypothyroid Fatty liver disease, nonalcoholic Social History Smoking Status: Never smoker Tobacco Type: Cigarettes Hx Alcohol Use: No Hx Substance Use: No Preferred Language: Cambodian Communication Ability: Effective 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 Beliefs That Will Affect Care: None Current Living Situation: Spouse Other Information That Helps Us Care for You: No Feels Safe at Home: Yes Safety Concerns: Feels Safe At This Time Review of Systems Review of Systems: As per HPI, all other systems reviewed and negative Physical Exam Physical Exam: GENERAL: Comfortable, pleasant, slow to answer questions from time to time, obese, slightly hard of hearing no respiratory distress SKIN: Normal color, warm HEENT: [place] palpebral conjunctivae, no ptosis, dry buccal mucosa NECK : Supple, no tenderness CHEST : CTA, no tenderness HEART : RRR, no obvious murmurs ABDOMEN: Some distention, nontender EXTREMITIES : Minimal LE swelling, no LE tenderness, palpable pulses, no other conspicuous deformities noted NEUROLOGIC : Coherent, no facial asymmetry, slow to answer questions from time to time, gait and stance not assessed Results & Data Results & Data Vital Signs (Past 12 Hours) Vital Signs Temp Pulse Resp BP Pulse Ox O2 Del Method 04/07/24 21:30 84 04/07/24 20:03 90 15 169/73 H 94 04/07/24 19:30 92 H 15 168/94 H 96 Room Air 04/07/24 18:15 82 18 98 Room Air 04/07/24 17:50 73 04/07/24 17:28 36.5 C 73 18 179/70 H 97 Room Air Laboratory Results Laboratory Results WBC 2.98 K/ul (4.8-10.8) L 04/07/24 18:09 RBC 3.89 M/uL (4.20-5.40) L 04/07/24 18:09 Hgb 12.4 g/dl (12.0-16.0) 04/07/24 18:09 Hct 35.2 % (37.0-47.0) L 04/07/24 18:09 MCV 90.5 fL (80.0-100.0) 04/07/24 18:09 MCH 31.9 pg (25.0-34.0) 04/07/24 18:09 MCHC 35.2 g/dL (32.0-36.0) 04/07/24 18:09 RDW Std Deviation 44.9 fL (36.4-46.3) 04/07/24 18:09 RDW Coeff of Vince 13.5 % (11.5-14.5) 04/07/24 18:09 Plt Count 58 K/uL (130-400) L 04/07/24 18:09 MPV 10.3 fL (9.4-12.4) 04/07/24 18:09 Immature Gran % (Auto) 0.3 % 04/07/24 18:09 Neut % (Auto) 44.6 % 04/07/24 18:09 Lymph % (Auto) 41.3 % 04/07/24 18:09 [place] % (Auto) 8.7 % 04/07/24 18:09 Eos % (Auto) 4.4 % 04/07/24 18:09 Baso % (Auto) 0.7 % 04/07/24 18:09 Neut # (Auto) 1.33 K/uL (1.40-6.50) L 04/07/24 18:09 Lymph # (Auto) 1.23 K/uL (1.20-3.40) 04/07/24 18:09 [place] # (Auto) 0.26 K/uL (0.11-0.59) 04/07/24 18:09 Eos # (Auto) 0.13 K/uL (0.00-0.50) 04/07/24 18:09 Baso # (Auto) 0.02 K/uL (0.00-0.20) 04/07/24 18:09 Immature Gran # (Auto) 0.01 K/uL (0.01-0.20) 04/07/24 18:09 Platelet Estimate Decreased (Normal) L 04/07/24 18:09 VBG pH 7.42 (7.36-7.41) H 04/07/24 18:20 VBG pCO2 38 mmHg (38-50) 04/07/24 18:20 VBG pO2 57 mmHg 04/07/24 18:20 VBG HCO3 25 mmol/L 04/07/24 18:20 VBG O2 Saturation 88.0 % 04/07/24 18:20 VBG Base Excess 0.3 mEq/L 04/07/24 18:20 Sodium 140 mmol/L (136-145) 04/07/24 18:09 Potassium 3.5 mmol/L (3.5-5.1) 04/07/24 18:09 Chloride 108 mmol/L (98-107) H 04/07/24 18:09 Carbon Dioxide 28 mmol/L (21-32) 04/07/24 18:09 Anion Gap 4 (3-11) 04/07/24 18:09 BUN 15 mg/dl (6-23) 04/07/24 18:09 Creatinine 0.60 mg/dl (0.6-1.2) 04/07/24 18:09 Est Cr Clr Drug Dosing 77.6 ml/min 04/07/24 18:09 eGFR 91.25 04/07/24 18:09 BUN/Creatinine Ratio 25.0 (10-20) H 04/07/24 18:09 Glucose 102 mg/dl (70-99(Fasting)) H 04/07/24 18:09 Calcium 9.1 mg/dl (8.6-10.3) 04/07/24 18:09 Magnesium 1.7 mg/dl (1.7-2.4) 04/07/24 18:09 Total Bilirubin 2.0 mg/dl (0.2-1.0) H 04/07/24 18:09 AST 40 U/L (13-39) H 04/07/24 18:09 ALT 24 U/L (7-52) 04/07/24 18:09 Alkaline Phosphatase 94 U/L (34-104) 04/07/24 18:09 Ammonia 41.0 umol/L (18-72) 04/07/24 18:09 Total Creatine Kinase 48 U/L (26-192) 04/07/24 18:09 Troponin I High Sens 4.1 pg/ml (0-14) 04/07/24 18:09 Total Protein 6.3 gm/dl (6.0-8.3) 04/07/24 18:09 Albumin 3.4 gm/dl (3.4-5.0) 04/07/24 18:09 Globulin 2.9 gm/dl (2.5-4.0) 04/07/24 18:09 Albumin/Globulin Ratio 1.2 (0.9-2) 04/07/24 18:09 TSH 1.297 uIu/ml (0.300-4.500) 04/07/24 18:09 Urine Color Yellow 04/07/24 19:13 Urine Appearance Clear (Clear) 04/07/24 19:13 Urine pH 6.0 (4.5-7.5) 04/07/24 19:13 Ur Specific [place] 1.010 (1.000-1.030) 04/07/24 19:13 Urine Protein Negative (Negative) 04/07/24 19:13 Urine Glucose (UA) Negative (Negative) 04/07/24 19:13 Urine Ketones Negative (Negative) 04/07/24 19:13 Urine Blood Negative (Negative) 04/07/24 19:13 Urine Nitrite Negative (Negative) 04/07/24 19:13 Urine Bilirubin Negative (Negative) 04/07/24 19:13 Urine Urobilinogen Positive (Negative) H 04/07/24 19:13 Ur Leukocyte Esterase Negative (Negative) 04/07/24 19:13 Ethyl Alcohol mg/dL < 10.0 mg/dl (<10.0) 04/07/24 18:09 SARS-CoV-2 (PCR) NEGATIVE (Negative) 04/07/24 18:10 Influenza Type A (PCR) Negative (Neg) 04/07/24 18:10 Influenza Type B (PCR) Negative (Neg) 04/07/24 18:10 RSV (RT-PCR) Negative (Neg) 04/07/24 18:10 Impressions Chest X-Ray 04/07/24 17:53 Chest radiograph, one view History: Chest pain Comparison: None Findings: Single AP view of the chest performed. No focal consolidation or pleural effusion. No pneumothorax. The cardiomediastinal silhouette is within normal limits. Normal pulmonary vascularity. No evidence for lymphadenopathy. No visualized bony or soft tissue abnormality. Impression: Normal chest radiograph Electronically signed by Efren Youngblood 04-07-2024 6:[address] 04/07/24 17:54 CT head without contrast History: AMS Comparison: None Technique: Using multidetector thin collimation helical acquisition technique, axial, coronal and sagittal CT images from the skull base to the vertex were obtained without intravenous contrast. Dose reduction techniques were achieved by using automatic exposure control and/or adjustment of mA and/or kV according to patient size and/or use of iterative reconstruction technique. Findings: No intracranial hemorrhage, mass-effect, or midline shift. The ventricles are proportionate to the cerebral sulci. The le to white matter differentiation of the cerebral hemispheres is preserved. The basal cisterns are patent. Moderate cerebral atrophy. The visualized paranasal sinuses are clear. Mastoid air cells are clear. Impression: No acute intracranial pathology. Electronically signed by Efren Youngblood 04-07-2024 7:23 PM Diagnostic Findings EKG as per my interpretation :Rate 70, NSR, LAD, LAFB, T wave abnormalities septal leads (1) Altered mental status Altered mental status type: unspecified Qualified Code(s): R41.82 - Altered mental status, unspecified
[2024-04-07] MEDS ORDERED: ACETAMINOPHEN 500 MG TAB PO PRN (23:17)
[2024-04-07] MEDS ORDERED: PROMETHAZINE 6.25 MG/50.25 ML BAG IV PRN (23:17)
[2024-04-07] MEDS: hydrALAZINE HCL 20 MG/ML VIAL IV ONE (23:44)
[2024-04-08 03:41] LABS: Basophils # (auto) 0.01 K/uL (0.00-0.20); Basophils % (auto) 0.3 %; Eosinophils # (auto) 0.08 K/uL (0.00-0.50); Eosinophils % (auto) 2.7 %; Hematocrit (blood only) 35.4 % (37.0-47.0); Hemoglobin 12.7 g/dl (12.0-16.0); Lymphocytes # (auto) 1.11 K/uL (1.20-3.40); Lymphocytes % (auto) 37.6 %; Mean Corpuscular Hemoglobin 32.1 pg (25.0-34.0); Mean Corpuscular Hgb Conc 35.9 g/dL (32.0-36.0); Mean Corpuscular Volume 89.4 fL (80.0-100.0); Mean Platelet Volume 10.7 fL (9.4-12.4); Monocytes # (auto) 0.27 K/uL (0.11-0.59); Monocytes % (auto) 9.2 %; Neutrophils # (auto) 1.48 K/uL (1.40-6.50); Neutrophils % (auto) 50.2 %; Platelet Count 56 K/uL (130-400); RDW Coefficient of Variation 13.5 % (11.5-14.5); RDW Standard Deviation 44.3 fL (36.4-46.3); Red Blood Count 3.96 M/uL (4.20-5.40); White Blood Count 2.95 K/ul (4.8-10.8)
[2024-04-08 03:56] LABS: BUN Creatinine Ratio 20.4 (10-20); Calcium 8.9 mg/dl (8.6-10.3); Chol HDL Ratio 2.6 (0-5); Creatinine Clr Calc Pharmacy 86.2 ml/min; Potassium 3.6 mmol/L (3.5-5.1)
[2024-04-08] MEDS: LEVOTHYROXINE SODIUM 88 MCG TABLET PO SCH (06:12)
[2024-04-08] MEDS: CYANOCOBALAMIN (B-12) 500 MCG TABLET PO SCH (08:31)
[2024-04-08] MEDS: ASPIRIN 81 MG ECTAB PO SCH (08:31)
[2024-04-08] MEDS: MULTIVITAMIN TAB PO SCH (08:31)
[2024-04-08] MEDS: lisinopril 5 MG TAB PO SCH (08:31)
[2024-04-08] MEDS ORDERED: hydrALAZINE HCL 20 MG/ML VIAL IV PRN (14:49)
--- NOTE | 2024-04-08 14:50 | Hospitalist Progress Note ---
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 Of note, highest BP noted in the ED was 206/105. She is being managed for the following: Altered mental status/hallucination Metabolic encephalopathy: Likely secondary to viral illness and high blood pressure MAT CUTTER, ro psychiatry illness and stroke. Likely viral gastroenteritis Patient presenting with acute onset AMS/hallucination per family member. Patient noted to have nausea, vomiting, diarrheal illness for few days MAT CUTTER. GI symptoms has largely resolved at the time of presentation but patient started with hallucination/altered mentation with triggered family member to bring her to the ED. Electrolytes fairly WNL, UA negative for UTI, flu screen negative, CXR negative, CT head negative for acute intracranial pathology. Troponin WNL. No neurological signs and symptoms consistent with a stroke.TSH WNL. NH3 level nl. Patient is oriented x 3 at bedside, not in distress, states that she continues to see and hear things that are not there. Will consult psychiatry. Continue to ensure medical optimization, IV fluid if with poor p.o. intake. Monitor replete electrolytes. Delirium precautions. Freq neurochecks. Supportive management for viral illness Hypertensive urgency Pt w/ history of hypertension not on maintenance medications. Her prior blood pressure medications were amlodipine 5 Mg and losartan 25 Mg which were both stopped in the year 2020 - 2021. LDL 54. Patient started on lisinopril, continue with as needed IV blood pressure medication, will get echo. Other chronic medical conditions: Continue with/resume home meds as and when able. hyperlipidemia/statin intolerance hx TIA NAFLD cirrhosis, compensated hypothyroidism, euthyroid as of this admission's TSH chronic neutropenia/chronic thrombocytopenia, possibly related to liver disease past tobacco abuse PT OT eval DVT prophylaxis. SCDs re: thrombocytopenia Full code Patient's son Mr. Jordan Lopez, contact #[phone]. Pt's grandson (his girlfriend) and pt's was given update at bedside at separate time than bedside exam. total time spent 30-35 min in this conversation. They were upset that they are not being treated well in ED. They states that pt has been on BP meds at home but my OP chart review indicates her prior BP meds were discontinued in 1050-0950. They states that the pt is still confused/hallucinating and nothing has been done and patient is not better yet. I explained that it might be due to viral illness or high BP Or combination of both. But alongside, we are doing tests to rule out stroke and evaluating for the need of psychiatric evaluations. They feel that it cannot be due to her high blood pressure and are upset at me bringing high blood pressure as a cause for her acute confusion. They initially wanted to take the patient home AMA, I asked them to think about it for some time before deciding on it and then they can let the nurse know of their intention. Later on RN notified me that the patient family is agreeable for her to stay today. Total time spent: 80 minutes Text document was generated using [employer] voice recognition software. It may contain grammatical or spelling errors. Kindly contact undersigned for clarification of any documentation item in question. Admission and Anticipated Discharge Date Admission Date: April 07, 2024 Subjective Patient was seen and examined at bedside. Patient was sitting up in bed, on room air, NAD. Patient not aware why she is here in the hospital, reports that she is hearing her son is [this is not true] and also reports seeing things that there are not on the floors. Patient denies shortness of breath or sore throat or cough or pain or burning while passing urine. Per RN, no further nausea/vomiting/diarrhea. Physical Exam Physical Exam: GENERAL: Comfortable, pleasant, obese, slightly hard of hearing no respiratory distress, Ox3 SKIN: Normal color, warm HEENT: [place] palpebral conjunctivae, no ptosis, moist buccal mucosa NECK : Supple, no tenderness CHEST : CTA, no tenderness HEART : RRR, no obvious murmurs ABDOMEN: Some distention, nontender EXTREMITIES : Minimal LE swelling, no LE tenderness, palpable pulses, no other conspicuous deformities noted NEUROLOGIC : Coherent, no facial asymmetry, slow to answer questions from time to time, gait and stance not assessed Results & Data Results & Data Vital Signs (Past 12 Hours) Vital Signs Temp Pulse Pulse Resp BP BP Pulse Ox 04/08/24 14:02 71 18 141/73 H 95 04/08/24 07:35 81 04/08/24 07:23 89 18 161/73 H 96 04/08/24 03:40 04/08/24 03:40 36.6 C 94 H 12 174/86 H 96 04/08/24 03:00 91 H 11 L 170/93 H 97 04/08/24 02:30 175/77 H 96 Pulse Ox O2 Del Method O2 Del Method 04/08/24 14:02 Room Air 04/08/24 07:35 04/08/24 07:23 Room Air 04/08/24 03:40 96 Room Air 04/08/24 03:40 Room Air 04/08/24 03:00 04/08/24 02:30 (1) Altered mental status Altered mental status type: unspecified Qualified Code(s): R41.82 - Altered mental status, unspecified
--- NOTE | 2024-04-08 15:27 | Electrocardiogram Report ---
Test Reason : Blood Pressure : */* mmHG Vent. Rate : 70 BPM Atrial Rate : 70 BPM P-R Int : 122 ms QRS Dur : 104 ms QT Int : 426 ms P-R-T Axes : 67 -41 62 degrees QTcB Int : 460 ms Normal sinus rhythm Left axis deviation Low voltage QRS Possible Anterolateral infarct , age undetermined Abnormal ECG Confirmed by Black Landrum ([id number]) on 04/08/2024 3:27:40 PM Referred By: REFERRED SELF Confirmed By: Black Landrum
[2024-04-09 03:18] LABS: Hematocrit (blood only) 35.4 % (37.0-47.0); Hemoglobin 12.6 g/dl (12.0-16.0); Mean Corpuscular Hgb Conc 35.6 g/dL (32.0-36.0); Mean Corpuscular Volume 89.8 fL (80.0-100.0); Mean Platelet Volume 10.6 fL (9.4-12.4); Platelet Count 59 K/uL (130-400); RDW Coefficient of Variation 13.6 % (11.5-14.5); RDW Standard Deviation 44.7 fL (36.4-46.3); Red Blood Count 3.94 M/uL (4.20-5.40); White Blood Count 4.18 K/ul (4.8-10.8)
[2024-04-09 03:35] LABS: BUN Creatinine Ratio 26.8 (10-20); Calcium 8.7 mg/dl (8.6-10.3); Creatinine Clr Calc Pharmacy 83.1 ml/min; Magnesium 1.6 mg/dl (1.7-2.4); Phosphorus 2.6 mg/dl (2.5-4.9); Potassium 3.9 mmol/L (3.5-5.1)
--- OUTSIDE RECORDS SUMMARY | 2024-04-09 06:07 | External Medical Summary | Summary of Care ---
Author Name Unknown Organization [facility] Address [address] [place] [address] Phone [phone] Care Team Providers Care Statistical Assistant Name Role Phone Unavailable Primary Care Provider Unavailabl e Reason for Visit * Reason Onset Date Comments Med Request 04/01/2024 Encounter Details Date Type Department Care Team (Late st Contact Info) Description 04/01/2024 Telephone Family Practice [facility] [address] [place] [address] Jordan Sierra MD [address] [place] [id number] Med Request Allergies Active Allergy Reactions Criticality Noted Date [...] as of this encounter (statuses as of 04/09/2024) Medications MULTIVITAMINS PO TABS 1 TABLET DAILY [...] other meds). 90 Tablet 1 5 Active Levothyroxine Sodium 88 MCG Oral Tablet (Levoxyl) Take 1 Tablet by mouth in the morning. (at least 30 min prior to breakfast or other meds). 90 Tablet 1 4 025 Discontin ued(Refil l) documented as of this encounter (statuses as of 04/09/2024) Active Problems Problem Noted Date Diagnosed Date [...] as of this encounter (statuses as of 04/09/2024) Resolved Problems Problem Noted Date Diagnosed Date Resolved Date Viral URI 10/22/2020 05/23/2022 Bloody discharge from left nipple 09/15/2017 04/26/2018 Dyslipidemia, goal to be determined 01/22/2009 10/23/2009 Overview (01/22/2009): Per Lipid Taxonomy. Allergic rhinitis 06/22/2000 01/16/2018 MENOPAUSE - MATT - 1977 11/27/199705/25 Mixed dyslipidemia 11/27/1997 9 Overview (01/22/2009): Per Lipid Taxonomy. documented as of this encounter (statuses as of 04/09/2024) Immunizations Name Administration Dates Next Due Hepatitis [...] Telephone Encounter - Jordan Sierra MD - 04/08/2024 10:16 PM EST See other encounter. * Telephone Encounter - Karin Jha MED ASSIST - 04/08/2024 2:45 PM EST Spoke with patient's grandson. Patient is currently at [facility] ER for confusion and hallucinations. He states they are not getting any answers and are very frustrated. He would like Dr. Sierra's recommendations. Printed ER notes and placed in Dr. Sierra's mailbox. * Telephone Encounter - Caitlin Yousif LPN - 04/03/2024 1:44 PM EST Attempted to call pt. No voicemail - unable to leave message. Please try again later * Telephone Encounter - Jordan Sierra MD - 04/02/2024 9:00 PM EST Refill sent I'd recheck TSH lab in May, sooner if she wants. * Telephone Encounter - Mercedes Pinon CMA - 04/02/2024 12:11 PM EST Spoke with pt. Needing Synthroid refill. Also inquiring when she will need a TSH level drawn next. Last checked 12/05/23. * Telephone Encounter - Modesta Quiroz OSA - 04/01/2024 12:46 PM EST Pt. Asking for call back she needs a refill on her medication Levothyroxine, but may need a change in medication. Asking for call back from provider regarding medication change and to get refill approved. documented in this encounter Plan of Treatment Upcoming Encounters Date Type Department Care Team (Late st Contact Info) Description 04/11/2024 3:00 PM EST Office Visit [facility] [address] [place] [address] Maribeth Milan CRNP [address] [place] [address] 05/13/2024 8:20 AM EDT Office Visit Hepatology, [facility] [address] [place] [address] Nithya Rodriguez DO [address] [place] [address] 05/23/2024 9:00 AM EDT Imaging Radiology [facility] [facility] [address] [place] [phone] 05/29/2024 8:20 AM EDT Office Visit [facility] [address] [place] [address] Jordan Sierra MD [address] [place] [address] 06/18/2024 9:00 AM EDT Laboratory Laboratory, [facility] [address] [place] [phone] [facility] [address] [place] [address] 06/25/2024 1:00 PM EDT Office Visit Hematology/Oncology [facility] [address] [place] [phone] Beth King MD [address] [place], [place] [address] 11/11/2024 8:00 AM EDT Nurse Only Ancillary [place] [facility] [place] [address] [place] [address] [facility], Nurse Annual Wellness [facility] [address] [place] [address] Scheduled Orders Name Type Priority Associated Diagnoses Orde r Schedule TSH WITH FREE T4 IF INDICATED Lab Routine Hypothyroidism, unspecified type Expected: 04/02/2024 (Approximate), Expires: 04/02/2025 Scheduled Procedures Name Priority Associated Diagnoses Date/Ti me ESOPHAGOGASTRODUODENOSCOPY ( EGD), FLEXIBLE, TRANSORAL, DIAGNOSTIC Recall Portal hypertensive gastropathy (HCC) Health Maintenance Due Date Last Done Comments DTap/Tdap Vaccines (1 - Tdap) 10/24/2009 10/23/2009 Mammogram 06/19/2024 06/20/2023, 050 02/2023, 06/07/2022, Additional history exists Depression Screening [...]
[2024-04-09] MEDS: MAGNESIUM SULFATE / D5W 1 GM/100 ML BAG IV ONE (09:39)
--- NOTE | 2024-04-09 12:46 | Psychiatric Consultation ---
Date of Consultation April 09, 2024 Impression / Recommendations Impression 78 y/o F h/o TIA, compensated cirrhosis, corrected hypothyroidism, chronic neutropenia, chronic thrombocytopenia presents with AMS, N/V/D in the context of recent viral infection and initial uncontrolled BP. Psychiatry consulted for new onset hallucinations. Patient in acute delirium likely d/t recent viral infection in the setting of limited cognitive reserve. No documented h/o past psychiatric conditions or dementia. No evidence of depression, jenny, chronic psychosis, suicidality. Recent psychosis, alterations in consciousness, confusion, and disorientation 2/2 delirium. Appears to be improving. May benefit from cognitive testing outpatient once delirium resolves to assess for dementia given h/o TIAs. Labs reviewed: low platelets (chronic), CMP, TSH, UA, BAL unremarkable. Overall, I spent a total of 60 minutes with this case including review of chart records, nursing report, review of lab work, direct evaluation of the patient at bedside, counseling the patient, discussion of the patient with the hospitalist provider, discussion with the psychiatric liaison during clinical rounds, and documentation in the electronic health record. (1) Delirium due to another medical condition: (2) Viral infection: (3) History of TIAs: Plan No acute psychiatric interventions at this time For behavioral emergencies consider: Quetiapine 25mg PO Q8hr PRN for agitation or Olanzapine 2.5mg PO/IM Q8hr PRN for agitation -Continue medical workup to rule out and treat any underlying causes contributing to potential delirium including correction of electrolyte abnormalities and infectious causes, avoid or limit use of deliriogenic medications (benzodiazepines, opioids, anticholinergics) -Continue with delirium prevention measures: raising blinds during the day, closing at night, frequent re-orientation, contact with family/friends, explaining procedures/nursing care measures prior to physical contact, correct any hearing and visual impairments Psych History Identifying Data 78 y/o F h/o TIA, compensated cirrhosis, corrected hypothyroidism, chronic neutropenia, chronic thrombocytopenia presents with AMS, N/V/D in the context of recent viral infection and initial uncontrolled BP. Psychiatry consulted for new onset hallucinations. Chief Complaint Psychosis History of Present Illness Floor nurse reported pt has not presented hallucinations today. Has been confu sed on how to use creamer with her coffee. On interview, pt appears in good spirits and reports "good" mood. Has speech delay and appears confused with open ended questioning. AO to hospital, city, y ear, month, self. Denies having pain or sadness. Unable to explain situation that led to hospital other than a fall one week ago. Unable to state her living situation. Denies AVH and was not seen responding during the interview. Answers inappropriately to questions at times. Feels safe. C/L Nurse attempted to reach and unsuccessful. No known past psych history documented. Allergies Allergy/AdvReac Type Severity Reaction Status Date / Time Egg Derived Allergy Severe Anaphylaxis Unverified 04/07/24 18:50 Influenza Virus Vaccines Allergy Severe allergic Verified 04/07/24 18:50 to eggs...anaphylaxis pneumococcal vaccine Allergy chills,rigor,fever,nausea,vomiting,light Verified 04/07/24 18:52 [From Prevnar 13 (PF)] headed losartan AdvReac Cough and Verified 04/07/24 18:58 wheeze pravastatin [From Pravachol] AdvReac achiness Verified 04/07/24 18:52 mucinex cough for kids Allergy rash,knocked Uncoded 04/07/24 18:58 her out and stomach pains Home Medications Medication Instructions Recorded Confirmed Type ascorbic acid (vitamin C) 500 mg 1,000 mg PO QAM 04/07/24 04/07/24 History tablet (Vitamin C) aspirin 81 mg tablet,delayed 81 mg PO QAM 04/07/24 04/07/24 History release cyanocobalamin (vitamin B-12) 500 500 mcg PO DAILY 04/07/24 04/07/24 History mcg tablet (Vitamin B-12) levothyroxine 88 mcg tablet 88 mcg PO DAILYBB 04/07/24 04/07/24 History multivitamin 1 tab PO DAILY 04/07/24 04/07/24 History Patient History Medical History Hypothyroid Fatty liver disease, nonalcoholic Social History Smoking Status: Never smoker Tobacco Type: Cigarettes Hx Alcohol Use: No Hx Substance Use: No Preferred Language: Marshallese Communication Ability: Effective School Admissions Representative Required: No Beliefs That Will Affect Care: None Current Living Situation: Spouse Other Information That Helps Us Care for You: No Feels Safe at Home: Yes Safety Concerns: Feels Safe At This Time Assistive Devices: None Physical Exam Mental Examination: Appearance: Disheveled Eye Contact: Maintains Eye Co ntact Motor Behavior: Slowed Speech: Soft and Delayed Mood: Euthymic and Calm Affect: Congruent and Constricted Thought Process: Disoriented and Slowed Thinking Thought Content: Disoriented Hallucinations: None Insight: Poor Judgement: Poor Vital Signs (Past 24 Hours): Last Vital Signs Temp 36.6 C 04/09/24 06:38 Pulse 85 04/09/24 10:50 Resp 17 04/09/24 10:50 BP 143/76 H 04/09/24 10:50 Pulse Ox 96 04/09/24 10:50 O2 Del Method Room Air 04/09/24 10:50 Results & Data (PSY) Medications Administered Aspirin (Aspirin 81 Mg Ectab) [facility] Stop: 05/08/24 08:59 Last Admin: 04/09/24 09:39 Dose: 81 mg Documented By: Admin: 04/08/24 08:31 Dose: 81 mg Documented By: SONNY Cyanocobalamin (Cyanocobalamin (B-12) 500 Mcg Tablet) 500 mcg PO DAILY [facility] Stop: 05/08/24 08:59 Last Admin: 04/09/24 09:40 Dose: 500 mcg Documented By: Admin: 04/08/24 08:31 Dose: 500 mcg Documented By: SONNY Levothyroxine Sodium (Levothyroxine Sodium 88 Mcg Tablet) 88 mcg PO DAILYBB [facility] Stop: 05/08/24 06:29 Last Admin: 04/09/24 06:39 Dose: 88 mcg Documented By: Admin: 04/08/24 06:12 Dose: 88 mcg Documented By: GABY Lisinopril (Lisinopril 5 Mg Tab) 5 mg PO QAM [facility] Stop: 05/08/24 08:59 Last Admin: 04/09/24 09:41 Dose: 5 mg Documented By: Admin: 04/08/24 08:31 Dose: 5 mg Documented By: SONNY Multivitamins (Multivitamin Tab) 1 tab PO DAILY [facility] Stop: 05/08/24 08:59 Last Admin: 04/09/24 09:40 Dose: 1 tab Documented By: Admin: 04/08/24 08:31 Dose: 1 tab Documented By: SON[place] [address] IN/OBS CONSULT LVL 4,60M Patient Type New History Detailed Exam Detailed Medical Decision Making Moderate Complexity Diagnoses Delirium due to another medical condition F05 Viral infection B34.9 History of TIAs Z86.73
--- NOTE | 2024-04-09 14:31 | Hospitalist Progress Note ---
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 Of note, highest BP noted in the ED was 206/105. 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 Likely viral gastroenteritis Patient presenting with acute onset AMS/hallucination per family member. 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 GI symptoms has largely resolved at the time of presentation but patient started with hallucination/altered mentation with triggered family member to bring her to the ED. Electrolytes fairly WNL, UA negative for UTI, flu screen negative, CXR negative, CT head negative for acute intracranial pathology. Troponin WNL. No neurological signs and symptoms consistent with a stroke. TSH WNL. NH3 level nl. Patient is oriented x 3 at bedside, not in distress, states that she continues to see and hear things that are not there. Psychiatry evaled, no acute psychiatric Ix at this time. Pt w/ slow improvement, will consult neuro. Continue to ensure medical optimization, IV fluid if with poor p.o. intake. Monitor replete electrolytes. Delirium precautions. Freq neurochecks. Supportive management for viral illness Hypertensive urgency Pt w/ history of hypertension not on maintenance medications. Her prior blood pressure medications were amlodipine 5 Mg and losartan 25 Mg which were both stopped in the year 2020 - 2021. LDL 54. Patient started on lisinopril, continue with as needed IV blood pressure medication. ECHO this admission - EF 55-60%, Grade I diastolic dysfunction, moderate concentric LVH. Family states she had issues w/ low BP in the past and her BP meds were dc'd. Will continue to monitor and see her BP meds requirement. Other chronic medical conditions: Continue with/resume home meds as and when able. hyperlipidemia/statin intolerance hx TIA NAFLD cirrhosis, compensated hypothyroidism, euthyroid as of this admission's TSH chronic neutropenia/chronic thrombocytopenia, possibly related to liver disease past tobacco abuse PT OT eval DVT prophylaxis. SCDs re: thrombocytopenia Full code Patient's son Mr. Jordan Lopez, contact #[phone]. Family updated at bedside. Text document was generated using Intense voice recognition software. It may contain grammatical or spelling errors. Kindly contact undersigned for clarification of any documentation item in question. Admission and Anticipated Discharge Date Admission Date: April 07, 2024 Subjective Patient was seen and examined at bedside. Patient was sitting up in bed, on room air, NAD. Per RN, patient is not as much crawling out of bed by herself now, he still remains confused as to how to perform general activities like opening milk. Pt stating she sees "pink white yellow fully things" on the wall. Denies SI/HI. Appreciate psychiatric evaluation. Patient's family at bedside and wondering why she is not improving. Will place neurology consult for any further insight into this matter. Per RN, ok appetite, no N/V/D. Physical Exam Physical Exam: GENERAL: Comfortable, pleasant, obese, slightly hard of hearing no respiratory distress SKIN: Normal color, warm HEENT: [place] palpebral conjunctivae, no ptosis, moist buccal mucosa NECK : Supple, no tenderness CHEST : CTA, no tenderness HEART : RRR, no obvious murmurs ABDOMEN: Some distention, nontender EXTREMITIES : Minimal LE swelling, no LE tenderness, palpable pulses, no other conspicuous deformities noted NEUROLOGIC : Coherent, no facial asymmetry, slow to answer questions from time to time, gait and stance not assessed Results & Data Results & Data Vital Signs (Past 12 Hours) Vital Signs Temp Pulse Pulse Pulse Resp BP Pulse Ox 04/09/24 14:23 83 04/09/24 13:01 04/09/24 12:00 36.4 C L 78 16 156/77 H 96 04/09/24 10:50 85 17 143/76 H 96 04/09/24 08:01 82 04/09/24 08:00 91 H 18 166/77 H 97 04/09/24 06:38 36.6 C 72 18 153/96 H 96 O2 Del Method 04/09/24 14:23 04/09/24 13:01 Room Air 04/09/24 12:00 Room Air 04/09/24 10:50 Room Air 04/09/24 08:01 04/09/24 08:00 Room Air 04/09/24 06:38 Room Air (1) Altered mental status Altered mental status type: unspecified Qualified Code(s): R41.82 - Altered mental status, unspecified
--- NOTE | 2024-04-09 15:34 | Neurology Consultation ---
Date of Consultation April 09, 2024 Assessment & Plan (1) Altered mental status: Recommend MRI brain with AND without contrast Recommend CTA head & neck Consider obtaining echocardiogram as part of complete workup Continue to monitor for s/s of infection Continue to monitor mentation Agree with Psychiatry consultation Continue frequent neurological assessments Obtain stat CT brain without contrast for any acute neurological decline Continue to monitor/control blood pressure & blood glucose Continue to monitor telemetry closely Continue to monitor renal and hepatic function, keep euvolemic Ok from neurology perspective for VTE prophylaxis PT/OT/SLT to eval and treat Recommend eval for ZE and consider outpatient polysomnography Telehealth Consultation Telehealth Information Telehealth Information: I performed this visit using a real-time telehealth connection between my location and the patients location ([facility]). After connecting through interactive tele-video, patient was identified by name and date of and/or wristband check.Patient (or authorized healthcare care support representative) was informed that this was a telemedicine visit and it was being conducted confidentially over secure lines. My office door was closed and no one else was present in the room with me.Patient (or authorized healthcare care support representative) provided consent to proceed with the visit, expressed an understanding of privacy and security of the telemedicine visit, and gave permission to have a hospital care support representative in the room in order to assist with the visit and to conduct portions of the visit, as needed. I informed the patient (or authorized healthcare care support representative) that I reviewed their record and presented the opportunity for them to ask any questions regarding the visit today. The patient agreed to participate. History of Present Illness Reason for Consultation: Acute AMS Requesting Physician: Dr. dumont Attending Physician: Saad Dumont MD History of Present Illness 78yo right handed female presented to ER with family due to ongoing changes in mentation. She reportedly started having diarrhea and vomiting over the weekend then began having visual hallucinations on Monday prompting family to bring her to the ER. She was found t have severely elevated blood pressure. She has a hx of HTN, hyperlipidemia, TIA, cirrhosis, NAFLD. She has undergone CT brain without contrast revealing no overt evidence of hemorrhage or acute intracranial pathology. I have performed televideo consultation. She is alert to self and most of situation. She is able to answer most questions and readily follow simple commands without noted deficit. Multiple family members at bedside reports today is her best day since Monday. She is able to name objects on televideo monitor without difficulty. Neurological exam is non lateralizing/nonfocal in terms of motor strength and coordination. Allergies Allergy/AdvReac Type Severity Reaction Status Date / Time Egg Derived Allergy Severe Anaphylaxis Unverified 04/07/24 18:50 Influenza Virus Vaccines Allergy Severe allergic Verified 04/07/24 18:50 to eggs...anaphylaxis pneumococcal vaccine Allergy chills,rigor,fever,nausea,vomiting,light Verified 04/07/24 18:52 [From Prevnar 13 (PF)] headed losartan AdvReac Cough and Verified 04/07/24 18:58 wheeze pravastatin [From Pravachol] AdvReac achiness Verified 04/07/24 18:52 mucinex cough for kids Allergy rash,knocked Uncoded 04/07/24 18:58 her out and stomach pains Home Medications Medication Instructions Recorded Confirmed Type ascorbic acid (vitamin C) 500 mg 1,000 mg PO QAM 04/07/24 04/07/24 History tablet (Vitamin C) aspirin 81 mg tablet,delayed 81 mg PO QAM 04/07/24 04/07/24 History release cyanocobalamin (vitamin B-12) 500 500 mcg PO DAILY 04/07/24 04/07/24 History mcg tablet (Vitamin B-12) levothyroxine 88 mcg tablet 88 mcg PO DAILYBB 04/07/24 04/07/24 History multivitamin 1 tab PO DAILY 04/07/24 04/07/24 History Patient History Medical History Hypothyroid Fatty liver disease, nonalcoholic Social History Smoking Status: Never smoker Tobacco Type: Cigarettes Hx Alcohol Use: No Hx Substance Use: No Preferred Language: Barbadian Communication Ability: Effective Customer Relations Representative Required: No Beliefs That Will Affect Care: None Current Living Situation: Spouse Other Information That Helps Us Care for You: No Feels Safe at Home: Yes Safety Concerns: Feels Safe At This Time Assistive Devices: None Physical Exam Neurological Examination: Mental Status: Awake and alert. Oriented to person, place, and time. Fluency naming repetition and comprehension appear grossly intact. Affect remains appropriate. CN testing: I: Deferred II:Reports no changes in visual acuity at this time III/IV/: No evidence of gaze preference, hippus, nystagmus or roving eye movements V: Facial sensation is reportedly grossly intact VII: Facial movements appear without evidence of asymmetry VIII: Hearing appears grossly intact to loud voice bilaterally IX/X: Palate is unable to be accurately assessed via telemedicine XI: Shoulder shrug appears symmetric/ grossly intact bilaterally XII: Tongue protrudes midline without evidence of biting Motor exam: Strength appears grossly intact/symmetric in all extremities Sensory: Sensation is reportedly grossly intact throughout Coordination: Deferred Reflexes: Deferred Gait: Deferred Results & Data Vital Signs (Past 12 Hours) Vital Signs Temp Pulse Pulse Pulse Resp BP Pulse Ox 04/09/24 14:23 83 04/09/24 13:01 04/09/24 12:00 36.4 C L 78 16 156/77 H 96 04/09/24 10:50 85 17 143/76 H 96 04/09/24 08:01 82 04/09/24 08:00 91 H 18 166/77 H 97 04/09/24 06:38 36.6 C 72 18 153/96 H 96 O2 Del Method 04/09/24 14:23 04/09/24 13:01 Room Air 04/09/24 12:00 Room Air 04/09/24 10:50 Room Air 04/09/24 08:01 04/09/24 08:00 Room Air 04/09/24 06:38 Room Air Laboratory Results Abnormal lab results 04/09/24 Range/Units 03:05 WBC 4.18 L (4.8-10.8) K/ul RBC 3.94 L (4.20-5.40) M/uL Hct 35.4 L (37.0-47.0) % Plt Count 59 L (130-400) K/uL Chloride 110 H (98-107) mmol/L Creatinine 0.56 L (0.6-1.2) mg/dl BUN/Creatinine Ratio 26.8 H (10-20) Magnesium 1.6 L (1.7-2.4) mg/dl Medications Administered Home Medications Medication Instructions Recorded Confirmed Last Taken ascorbic acid (vitamin C) 500 mg 1,000 mg PO QAM 04/07/24 04/07/24 Unknown tablet (Vitamin C) aspirin 81 mg tablet,delayed 81 mg PO QAM 04/07/24 04/07/24 Unknown release cyanocobalamin (vitamin B-12) 500 500 mcg PO DAILY 04/07/24 04/07/24 Unknown mcg tablet (Vitamin B-12) levothyroxine 88 mcg tablet 88 mcg PO DAILYBB 04/07/24 04/07/24 Unknown multivitamin 1 tab PO DAILY 04/07/24 04/07/24 Unknown Active Medications Generic Name Dose Route Start Last Admin Trade Name Mendel PRN Reason Stop Dose Admin Aspirin 81 mg 04/08/24 09:00 04/09/24 09:39 Aspirin 81 Mg Ectab PO 05/08/24 08:59 81 mg QAM AYLA Administration Cyanocobalamin 500 mcg 04/08/24 09:00 04/09/24 09:40 Cyanocobalamin (B-12) 500 Mcg Tablet PO 05/08/24 08:59 500 mcg DAILY AYLA Administration Levothyroxine Sodium 88 mcg 04/08/24 06:30 04/09/24 06:39 Levothyroxine Sodium 88 Mcg Tablet PO 05/08/24 06:29 88 mcg DAILYBB AYLA Administration Lisinopril 5 mg 04/08/24 09:00 04/09/24 09:41 Lisinopril 5 Mg Tab PO 05/08/24 08:59 5 mg QAM AYLA Administration Multivitamins 1 tab 04/08/24 09:00 04/09/24 09:40 Multivitamin Tab PO 05/08/24 08:59 1 tab DAILY AYLA Administration (1) Altered mental status Altered mental status type: unspecified Qualified Code(s): R41.82 - Altered mental status, unspecified
[2024-04-09] MEDS: OPTIRAY 320 125ml IV ONE (17:32)
--- NOTE | 2024-04-09 18:05 | CT Scan Report ---
Clinical history: Altered mental status Technique: Axial computed tomography images were obtained of the neck after the administration of intravenous contrast according to the CT angiogram protocol Findings: No stenosis is seen in the common carotid arteries bilaterally. There is mild plaque within the carotid bulbs bilaterally, without stenosis. The remainder of the internal carotid arteries appear patent bilaterally. No stenosis of the external carotid arteries is seen The vertebral arteries are patent bilaterally with no significant stenosis seen. The visualized thoracic aorta appears unremarkable There is multilevel degenerative disc disease and osteoarthritis of the cervical spine. There is a suspected small nodule in the left lower lobe Impression: 1. Mild carotid atherosclerosis, without apparent stenosis 2. Suspected small thyroid nodule, indeterminate in nature. A follow-up thyroid ultrasound could be obtained Electronically signed by Errol Oden 04-09-2024 6:02 PM
--- NOTE | 2024-04-09 18:05 | CT Scan Report ---
Clinical history: Altered mental status Technique: Axial computed tomography images were obtained of the brain before and after the administration of intravenous contrast according to the CT angiogram protocol Findings: There is no sign of intracranial hemorrhage. There is normal le-white matter differentiation with no sign of acute or old infarction. No midline shift or other form of herniation is identified. There is no hydrocephalus. No mass lesion is seen. The visualized portions of the orbits and paranasal sinuses appear unremarkable. The mastoid air cells appear clear There is calcified plaque within the cavernous and supraclinoid segments of the internal carotid arteries bilaterally, without significant stenosis No definite stenosis or aneurysm is seen of the anterior, middle, or posterior cerebral artery circulations. The visualized vertebral arteries and the basilar artery appear unremarkable Impression: No definite stenosis or aneurysm of the intracranial arteries Electronically signed by Errol Oden 04-09-2024 6:00 PM
[2024-04-09] MEDS ORDERED: OLANZapine 10 MG/2.1 ML SDV IM PRN (21:50)
[2024-04-09] MEDS: OLANZapine 10 MG/2.1 ML SDV IM STA (21:57)
[2024-04-10 10:47] LABS: Mean Corpuscular Hgb Conc 34.1 g/dL (32.0-36.0); Mean Corpuscular Volume 90.7 fL (80.0-100.0); Mean Platelet Volume 10.8 fL (9.4-12.4); Platelet Count 65 K/uL (130-400); RDW Coefficient of Variation 13.9 % (11.5-14.5); RDW Standard Deviation 46.4 fL (36.4-46.3); Red Blood Count 4.52 M/uL (4.20-5.40); White Blood Count 5.06 K/ul (4.8-10.8)
[2024-04-10 11:06] LABS: BUN Creatinine Ratio 27.3 (10-20); Calcium 9.1 mg/dl (8.6-10.3); Creatinine Clr Calc Pharmacy 70.3 ml/min; Magnesium 1.8 mg/dl (1.7-2.4); Phosphorus 2.8 mg/dl (2.5-4.9); Potassium 3.9 mmol/L (3.5-5.1)
--- NOTE | 2024-04-10 12:10 | Discharge Summary ---
Discharge Summary Date of Service April 10, 2024 Principal Dx & Hospital Course #1 = Principal Diagnosis (1) Altered mental status: Ms. Lopez is a 78-year-old lady with PMH of HTN, HLD, TIA, NAFLD cirrhosis, hypothyroidism, chronic neutropenia, chronic thrombocytopenia, past tobacco abuse was brought in due to nausea, vomiting, diarrhea symptoms for few days [employer] associated with altered mentation/hallucination per family member. Of note, highest BP noted in the ED was 206/105. Patient underwent neurologic exam, with CTA and no clear eitology for encephalopathy. Patient with history of TIA and MRI recommended. On day of discharge, patient still awaiting MRI. Patient confused and with some aphasia and confusion; however, she was able to state location and year. Patient also noting people visiting her and holding her "captive." Patient's , brother in law, and grandson presented to take patient home. Expressed that given patient's current state, it was not felt safe to discharge home quite yet and encouraged family to consider MRI prior to leaving. Family adamant to take patient against medical advice. Discussed concern for worsening mentation, increased risks for falls and aspiration. Family notes that they will be present with patient and will take her to her PCP appointment tomorrow. Patient left against medical advice. #Acute metabolic encephalopathy Likely secondary to viral illness and high blood pressure [employer], ro psychiatry illness and stroke. #Likely viral gastroenteritis Patient presenting with acute onset AMS/hallucination per family member. Patient noted to have nausea, vomiting, diarrheal illness for few days [employer]. GI symptoms has largely resolved at the time of presentation but patient started with hallucination/altered mentation with triggered family member to bring her to the ED. Electrolytes fairly WNL, UA negative for UTI, flu screen negative, CXR negative, CT head negative for acute intracranial pathology. Troponin WNL. No neurological signs and symptoms consistent with a stroke. TSH WNL. NH3 level nl. CTA without significant stenosis MRI ordered but not obtained Still with visual and auditory hallucinations Psychiatry evaled, no acute psychiatric Ix at this time. Neuro: consider OP MRI w and w/o contrast #Hypertensive urgency Pt w/ history of hypertension not on maintenance medications. Her prior blood pressure medications were amlodipine 5 Mg and losartan 25 Mg which were both stopped in the year 2020 - 2021. LDL 54. Patient started on lisinopril, continue with as needed IV blood pressure medication. ECHO this admission - EF 55-60%, Grade I diastolic dysfunction, moderate concentric LVH. Family states she had issues w/ low BP in the past and her BP meds were dc'd. Will continue to monitor and see her BP meds requirement. Stent lisinopril 5mg given elevated pressures upon arrival, encouraged family to discuss with PCP Other chronic medical conditions: Continue with/resume home meds as and when able. hyperlipidemia/statin intolerance hx TIA NAFLD cirrhosis, compensated hypothyroidism, euthyroid as of this admission's TSH chronic neutropenia/chronic thrombocytopenia, possibly related to liver disease past tobacco abuse Notes For Next Care Provider Considr MRI w and w/o contrast for completeness; patient AMA prior to obtaining Medication Changes From Visit Lisinopril 5mg daily Admission HPI Per Admitting Provider History obtained from patient, family, and records. Patient is a fair historian. Medical history significant for hypertension, hyperlipidemia, TIA, NAFLD cirrhosis, hypothyroidism, chronic neutropenia, chronic thrombocytopenia, past tobacco abuse. Few days history of nausea vomiting diarrhea symptoms without abdominal pain complaints. Not sure about sick contacts. Patient somewhat confused as per family. Mild headache symptoms as per patient. Highest SBP of 200s documented at the ER. 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 Admission Exam Per Admitting Provider GENERAL: Comfortable, pleasant, obese, slightly hard of hearing no respiratory distress, Ox3 SKIN: Normal color, warm HEENT: [place] palpebral conjunctivae, no ptosis, moist buccal mucosa NECK : Supple, no tenderness CHEST : CTA, no tenderness HEART : RRR, no obvious murmurs ABDOMEN: Some distention, nontender EXTREMITIES : Minimal LE swelling, no LE tenderness, palpable pulses, no other conspicuous deformities noted NEUROLOGIC : Coherent, no facial asymmetry, slow to answer questions from time to time, gait and stance not assessed Discharge Exam Constitutional pleasant conversational, however, some noted paranoia Respiratory normal respiratory effort, lungs clear to auscultation Cardiovascular RRR, no murmur, no edema Updated Medication List Medication Instructions Recorded Confirmed Type ascorbic acid (vitamin C) 500 mg 1,000 mg PO QAM 04/07/24 04/07/24 History tablet (Vitamin C) aspirin 81 mg tablet,delayed 81 mg PO QAM 04/07/24 04/07/24 History release cyanocobalamin (vitamin B-12) 500 500 mcg PO DAILY 04/07/24 04/07/24 History mcg tablet (Vitamin B-12) levothyroxine 88 mcg tablet 88 mcg PO DAILYBB 04/07/24 04/07/24 History multivitamin 1 tab PO DAILY 04/07/24 04/07/24 History lisinopril 5 mg tablet 5 mg PO QAM 30 days #30 tabs 04/10/24 Rx Hospital Stay Data Consultations 04/07/24 20:16 ED Decision to Admit Stat 04/08/24 14:37 Consult Psychiatry Routine 04/09/24 12:27 Consult Neurology Routine Diagnostic Imagining Performed 04/07/24 17:54 CT head/brain wo con Stat 04/09/24 15:59 CT angio neck with con Routine CTA head wo/w [CT angio head wo/w] Routine MRI Brain [MR brain wo/w con] Routine Pending Results Patient Have Any Pending Studies at Discharge: No Total Time Total Time Spent Total Time Spent (In Minutes): 35
== END 2024-04-10 12:22 | disposition left against medical advice (07) | DRG 391 ==
LOC: ED 17:25 → EDINP 17:25 → 2N 04-09 12:06 → SUATTDRO 04-09 14:45